=== PATIENT | female | born 1950 | race Caucasian/White ===

== ENCOUNTER → 2016-07-31 | Outpatient (CLI) | payer OTHER ==
[~2016-07-31] MED LIST: ACET-2321 PO; AMLO5TAB2 PO; ASPI-917 PO; BENA20TA3 PO; BIOT25008 PO; CALC1CAP22 PO; CETI1TAB14 PO; CETI5TAB11 PO; CITA-51 PO; CYAN10009 PO; CYCL30DR BOTH EYES; ESTR42.53 VAGINALLY; FLUT16SP12 EA NOSTRIL; FOLI1TAB15 PO; GUAI-997 PO; HYDR200T28 PO; META800T88 PO; METH2.5T6 PO; MULT-933 PO; OMEP20CA81 PO; POLY17PO18 PO; TRAM50TA53 PO; ZOLE5INF IV; [UNRECOGNIZED DRUG - CODE] PO
== END ==
LOC: IMA 14:20
PROVIDERS: ATTEND Family Medicine
DX: M85.852 Other specified disorders of bone density and structure, left thigh (principal)

== ENCOUNTER 2017-02-03 22:55 | Inpatient (IN) ==
[2017-02-03] MEDS ORDERED: SALINE FLUSH 10ml SYRINGE IVF PRN (23:14)
[2017-02-03] MEDS ORDERED: KETOROLAC 15 MG/ML INJECTION IVP ONE (23:14)
--- NOTE | 2017-02-03 23:21 | Emergency Department Report ---
Lower Extremity Injury HPI - General Chief Complaint: Extremity Injury, Lower Stated Complaint: Abn labs/knee pain Time Seen by Provider: 02/03/17 23:06 Source: patient, family Mode of arrival: wheelchair Limitations: no limitations - History of Present Illness HPI Narrative: Pt developed left knee pain yesterday for which she took some leftover Percocet she had from the replacement of the same knee back in March of this year. Pain continued today so she called and was seen in the clinic at 1800 tonight. Labs were drawn and xrays obtained. Pt later received a phone call stating her WBCs were elevated, the physician had talked to ortho and that she was to follow up with ortho at 0830 tomorrow, she was to also double her percocet dose but to come into the ER if her pain became worse. Pt felt her pain was not being controlled by the Percocet and is here for admission Injury: Left: knee (non traumatic pain) Severity scale (1-10): 10 Relieving factors: nothing Exacerbating factors: weight bearing, movement Treatments prior to arrival: other (Percocet) - Related Data Home Medications Medication Instructions Recorded Confirmed Citalopram Hydrobromide 40 mg PO HS #0 10/12/09 02/03/17 [Citalopram HBr] Hydroxychloroquine [Plaquenil] 200 mg PO BID #0 10/12/09 02/03/17 Metaxalone 800 mg PO TIDPRN #0 10/12/09 02/01/17 Cetirizine HCl 5 mg PO HS #0 03/13/11 02/03/17 Amlodipine Besylate 5 mg PO HS #0 tab 04/17/16 02/03/17 Biotin 1 cap PO DAILY #0 04/17/16 02/03/17 Calcium Carbonate/Vitamin D3 1 cap PO DAILY #0 04/17/16 02/03/17 [Calcium 600 + Vit D 400 Softgl] Folic Acid 1 tab PO DAILY #0 tab 04/17/16 02/03/17 Multivitamin [Multi-Day Vitamins] 1 tab PO DAILY #0 tab 04/17/16 02/03/17 cycloSPORINE [Restasis] 1 drop BOTH EYES DAILY #0 drop 04/17/16 02/03/17 Estradiol Vag Cream [Estrace Vag 1 applic VAGINAL HS 10/03/16 02/03/17 Cream] Fluticasone Nasal [place] [Flonase] 2 inh NS HS 10/03/16 02/03/17 Guaifenesin/Dextromethorphan 1 tab PO BID 10/03/16 02/03/17 [Mucinex Dm ER 1,200-60 mg Tab] Omeprazole 20 mg PO DAILY 10/03/16 02/03/17 Quetiapine [SEROquel] 200 mg PO HS 10/03/16 02/03/17 metHOTREXate sodium [Methotrexate] 6 tab PO WEEKLY 10/03/16 02/03/17 Cholecalciferol (Vitamin D3) 1,000 unit PO DAILY 02/01/17 02/03/17 [Vitamin D3] Vitamin E 400 unit PO DAILY 02/01/17 02/03/17 Allergies Allergy/AdvReac Type Severity Reaction Status Date / Time No Known Drug Allergies Allergy Unknown Verified 02/03/17 23:14 Review of Systems All systems: reviewed and negative except as stated Constitutional: Denies: fever, chills Gastrointestinal: Denies: nausea, vomiting Musculoskeletal: Reports: joint swelling, arthralgia Neurological: Reports: headache PFSH Patient Stated Medical History Cerebrovascular Accident No Angina No Hypertension Yes Asthma No Chronic Obstructive Pulmonary No Disease (COPD) Sleep Apnea No Diabetes Mellitus Type 2 No Gastroesophageal Reflux Yes: rarely- well controlled Disease Osteoarthritis Yes Other Musculoskeletal Yes: OSTEOPOROSIS Anesthesia Reactions Yes Depression Yes Post Menopausal Yes Clinic Medical History (Last Reviewed 12/18/16 @ 16:53 by Latonia Guerra) Adult idiopathic generalized osteoporosis (Acute Medical) Anxiety (Acute Medical) Depression (Acute Medical) Discoid lupus (Acute Medical) GERD (gastroesophageal reflux disease) (Acute Medical) Hypertension (Acute Medical) Osteoarthritis (Acute Medical) Headache (Inactive Medical) Hypertension (Inactive Medical) Surgical History: Bilateral breast augmentation, Age 45. TKA, left 2016. Bilateral exchange of saline implants to [place] [employer] breast implants 395 cc tall height, moderate plus profile 10/06/2016 Family History: Family History (Last Reviewed 12/18/16 @ 16:53 by Latonia Guerra) Father Hypertension Coronary artery disease Stroke Paternal Grandmother Diabetes Maternal Grandmother Breast cancer Mother Rheumatoid arthritis Osteoporosis Hypertension Hypercholesterolemia Heart disease Maternal Aunt Breast cancer Maternal Uncle Diabetes - Social History Smoking status: Never smoker Physical Exam - Limitations Limitations: no limitations - General General appearance: alert, in distress - Normal Exams: Head:: Normocephalic without trauma Neck:: Full range of motion, without adenopathy Chest/Respirations:: Clear all aleman, with good airflow Cardiovascular:: Regular rate and rhythm, without murmur or gallop, Pulses 2+ all extremities Abdomen:: Bowel sounds positive, soft, non-tender, non-distended Integumentary:: No rashes Neurological:: Patient is alert, and oriented, cranial nerves, motor/sensory/ cerebellar, exams w/o gross deficits, to observation Psychiatric:: Patient exhibits, appropriate attention, emotion and affect - Expanded Lower Extremity Exam Knee exam: Present: tenderness, swelling (warm to touch ) Course - Consultations Consultation #1: Pablo Curiel Time: 23:15 (no response) Consultation #2: Dr García Time: 23:30 (Admit to hospitalist) Vital Signs Temperature 98.2 F 02/03/17 22:55 Pulse Rate 98 02/03/17 22:55 Respiratory Rate 18 02/03/17 22:55 Blood Pressure 133/60 02/03/17 22:55 Pulse Oximetry 99 02/03/17 22:55 Temperature 98.2 F 02/03/17 22:55 Pulse Rate 98 02/03/17 22:55 Respiratory Rate 18 02/03/17 22:55 Blood Pressure 133/60 02/03/17 22:55 Pulse Oximetry 99 02/03/17 22:55 Extremity Injury, Lower - MDM Narrative Medical decision making narrative: Pt labs and Xrays from this evening reviewed. IV initiated, blood cultures obtained and pt given pain med. Dr García notified of pt arrival. Pt to be admitted. Dr Sanchez notified and will admit as inpatient - Differential Diagnosis Likely: acute internal derangement of knee (osteomyolitis, knee dislocation) - Lab Data Attestation: I reviewed the patient's lab results. - Radiology Data Attestation: I reviewed the patient's radiology results. Disposition Clinical Impression: Knee pain, left Qualifiers: Chronicity: acute Qualified Code(s): M25.562 - Pain in left knee Disposition: 02 To [facility] Acute Care Condition: Stable Prescriptions: No Action Metaxalone 800 mg PO TIDPRN #0 Hydroxychloroquine [Plaquenil] 200 mg PO BID #0 Cetirizine HCl 5 mg PO HS #0 Calcium Carbonate/Vitamin D3 [Calcium 600 + Vit D 400 Softgl] 1 cap PO DAILY #0 Folic Acid 1 tab PO DAILY #0 tab Amlodipine Besylate 5 mg PO HS #0 tab cycloSPORINE [Restasis] 1 drop BOTH EYES DAILY #0 drop Estradiol Vag Cream [Estrace Vag Cream] 1 applic VAGINAL HS Fluticasone Nasal [place] [Flonase] 2 inh NS HS Guaifenesin/Dextromethorphan [Mucinex Dm ER 1,200-60 mg Tab] 1 tab PO BID Quetiapine [SEROquel] 200 mg PO HS metHOTREXate sodium [Methotrexate] 6 tab PO WEEKLY Vitamin E 400 unit PO DAILY Cholecalciferol (Vitamin D3) [Vitamin D3] 1,000 unit PO DAILY Citalopram Hydrobromide [Citalopram HBr] 40 mg PO HS #0 Biotin 1 cap PO DAILY #0 Multivitamin [Multi-Day Vitamins] 1 tab PO DAILY #0 tab Omeprazole 20 mg PO DAILY Referrals: Zaid Moraes II, MD [Primary Care Provider] - Time of Disposition: 23:51 - Seen By: midlevel
[2017-02-04] MEDS ORDERED: ONDANSETRON 4 MG/2 ML INJECTION IVP PRN (00:26)
[2017-02-04] MEDS ORDERED: DOCUSATE SODIUM 100 MG CAPSULE PO PRN (00:26)
[2017-02-04 00:43] VITALS: BMI 28.1
[2017-02-04] MEDS: NS 1,000 ML IV SCH ×3 (00:52→15:03)
--- NOTE | 2017-02-04 01:08 | History & Physical Report ---
History of Present Illness Date: 02/04/17 Chief complaint: left knee pain HPI: This is 66 y/o female with a history of RA who is on MTX. The patient had a left total knee done 04/15. The patient with increasing left knee pain over the past 24 hours. no injury. The patient contacted Dr. García's office and an appointment was scheduled for this am. She was told to go to ED if pain worsened. Pain worsened and she presented to the ED. Plain films are unremarkable. Labs demonstrated no sig increased WBC but CRP was elevated. Because of concern for septic joint Dr. García was contacted by ED and he r/c admission and npo and no ANB. He would see the patient first thing in the am. Review of Systems Review of systems: no headache, no change in vision, no neck or jaw pain, no chest pain, no shortness of breath, no cough, no congestion, no abdomen pain no nausea or vomiting, no fever chills or sweats, no injury to knee. dogs occasionally bump into knee but not recently. Pain much worse tonight with cramps. 10 point ROS otherwise negative except for outlined above. [facility] Patient Stated Medical History Cerebrovascular Accident No Hypertension Yes Asthma No Chronic Obstructive Pulmonary No Disease (COPD) Sleep Apnea No Gastroesophageal Reflux Yes: rarely- well controlled Disease Osteoarthritis Yes Other Musculoskeletal Yes: OSTEOPOROSIS Anesthesia Reactions Yes: Head ache and nausea Depression Yes Post Menopausal Yes Clinic Medical History (Last Reviewed 12/18/16 @ 16:53 by Latonia Guerra) Knee pain, left (Acute Medical) Adult idiopathic generalized osteoporosis (Acute Medical) Anxiety (Acute Medical) Depression (Acute Medical) Discoid lupus (Acute Medical) GERD (gastroesophageal reflux disease) (Acute Medical) Hypertension (Acute Medical) Osteoarthritis (Acute Medical) Headache (Inactive Medical) Hypertension (Inactive Medical) Surgical History: Bilateral breast augmentation, Age 45. TKA, left 2016. Bilateral exchange of saline implants to [place] [employer] breast implants 395 cc tall height, moderate plus profile 10/06/2016 Family History: Family History (Last Reviewed 12/18/16 @ 16:53 by Latonia Guerra) Father Hypertension Coronary artery disease Stroke Paternal Grandmother Diabetes Maternal Grandmother Breast cancer Mother Rheumatoid arthritis Osteoporosis Hypertension Hypercholesterolemia Heart disease Maternal Aunt Breast cancer Maternal Uncle Diabetes - Social History Smoking status: Never smoker Substance use type: does not use Alcohol intake frequency: does not drink Housing: house Household members: spouse Current occupational status: previously employed Current residence: Apartment/Private Home Medications Home Medications Medication Instructions Recorded Confirmed Type Citalopram Hydrobromide 40 mg PO HS #0 10/12/09 02/03/17 History [Citalopram HBr] Hydroxychloroquine [Plaquenil] 200 mg PO BID #0 10/12/09 02/03/17 History Metaxalone 800 mg PO TIDPRN #0 10/12/09 02/01/17 History Cetirizine HCl 5 mg PO HS #0 03/13/11 02/03/17 History Amlodipine Besylate 5 mg PO HS #0 tab 04/17/16 02/03/17 History Biotin 1 cap PO DAILY #0 04/17/16 02/03/17 History Calcium Carbonate/Vitamin D3 1 cap PO DAILY #0 04/17/16 02/03/17 History [Calcium 600 + Vit D 400 Softgl] Folic Acid 1 tab PO DAILY #0 tab 04/17/16 02/03/17 History Multivitamin [Multi-Day Vitamins] 1 tab PO DAILY #0 tab 04/17/16 02/03/17 History cycloSPORINE [Restasis] 1 drop BOTH EYES DAILY #0 drop 04/17/16 02/03/17 History Estradiol Vag Cream [Estrace Vag 1 applic VAGINAL HS 10/03/16 02/03/17 History Cream] Fluticasone Nasal [place] [Flonase] 2 inh NS HS 10/03/16 02/03/17 History Guaifenesin/Dextromethorphan 1 tab PO BID 10/03/16 02/03/17 History [Mucinex Dm ER 1,200-60 mg Tab] Omeprazole 20 mg PO DAILY 10/03/16 02/03/17 History Quetiapine [SEROquel] 200 mg PO HS 10/03/16 02/03/17 History metHOTREXate sodium [Methotrexate] 6 tab PO WEEKLY 10/03/16 02/03/17 History Cholecalciferol (Vitamin D3) 1,000 unit PO DAILY 02/01/17 02/03/17 History [Vitamin D3] Vitamin E 400 unit PO DAILY 02/01/17 02/03/17 History Allergies Allergy/AdvReac Type Severity Reaction Status Date / Time No Known Drug Allergies Allergy Unknown Verified 02/03/17 23:14 Exam Vital Signs: Temperature 98.2 F 02/03/17 22:55 Pulse Rate 98 02/03/17 22:55 Respiratory Rate 18 02/03/17 22:55 Blood Pressure 133/60 02/03/17 22:55 Pulse Oximetry 99 02/03/17 22:55 Telemetry Rhythm: Sinus Rhythm Height/Weight/BMI: Height 1.65 m Weight 76.7 kg Body Mass Index 28.1 - Constitutional Present: moderate distress, obese, cooperative - Routine HEENT Exam Head: Present: normocephalic, atraumatic Eye: Present: EOMI, conjunctivae pink. Absent: scleral injection ENT: Present: mucous membranes moist - Routine Neck Exam Present: supple, full ROM - Routine Respiratory Exam Present: CTA bilaterally - Routine Cardiovascular Exam Present: RRR, no murmur - Routine Abdominal Exam Present: soft, normoactive bowel sounds, non distended, non tender - Routine Extremities Exam Present: no edema, non tender Comments: patient with surgical scar across left knee. there is more swelling to left knee vs right, slight erythema surrounding knee. ROM severely limited 2/2 pain. - Routine Skin Exam Present: intact - Routine Neurological Exam Present: alert, oriented X3. Absent: motor deficit - Routine Psychiatric Exam Present: normal affect, normal thought process Results - Labs Labs: Labs from the outside WBC 15K. CRP 231 Not available for review otherwise. ED note did not contain. (will make sure entered) am labs ordered. - Imaging and Cardiology left knee Additional comments: no acute osseous injury Assessment and Plan (1) Knee pain, left Current visit: Yes Status: Acute (2) Rheumatoid arthritis Current visit: Yes Status: Acute (3) Hypertension Current visit: Yes Status: Acute (4) GERD (gastroesophageal reflux disease) Current visit: Yes Status: Acute Assessment and Plan: 1. left knee pain acute POA: cause not clear at this time. DDX: flair of RA, infectious, traumatic. CRP elevated but would expect with RA chronic . Patient is immune compromised on MTX and as such risk of infection great. Raquel HALLMAN contacted and r/c no ANB to start. NPO and he would see in the am. Obviously with previous total knee would be concerned about infected hardware. Will repeat labs in the am and defer to ortho for next step of evaluation. Obviously also do not want to randomly stick needle in this joint with hardware present. 2. RA chronic POA: at this time hold MTX. Plaquenil. await further considerations from ortho. If no infection can continue meds and further address. 3. HTN chronic POA: hold norvasc overnight. adjust meds as indicated once NPO status is resolved 4. GERD chronic POA: PPI 5. DVT ppx: SCD only full inpatient admission DVT Prophylaxis: SCD's GI Prophylaxis: Protonix Resuscitation Status: Full Code - Time spent with patient Time with patient PN: 30 minutes Hospital Course Summary Disclaimer: The visit summary below is not to be considered part of the above Progress Note.
[2017-02-04] MEDS: MORPHINE SULFATE 4mg INJECTION IVP PRN ×4 (01:26→09:33)
--- NOTE | 2017-02-04 08:41 | Orthopedic Consult Note ---
Orthopedic Consultation HPI - Consultation Info Consult Date: 02/04/17 Attending Physician: Kaylee Wilkins MD Consult Reason: joint pain - History of Present Illness Mrs. Sandra is a kind 56-year-old female who is approximately 10 months status post left total knee arthroplasty. She is done well with her knee replacement until now. She was seen in the ER this last Thursday for what she describes a spasm this in her head. With pain medication and this resolved within 2 started having some spasms in the left knee and calf starting Thursday. She reports no previous illness and no previous injury. She is been in her normal state of health up until Thursday. No prior knee pain before Thursday. She is on methotrexate for rheumatoid arthritis. She presented emergency room last night with increasing knee pain. She was admitted to the hospitalist. CRP and white blood cell count elevated. This morning she complains of only left knee cramping to me. Review of Systems - Constitutional Constitutional: Absent: chills, fever(s), night sweats - Cardiovascular Cardiovascular: Absent: chest pain, palpitations - Respiratory Respiratory: Absent: cough, dyspnea - Gastrointestinal Gastrointestinal: Absent: abdominal pain, nausea, vomiting - Genitourinary Genitourinary Female: Absent: dysuria - Musculoskeletal Musculoskeletal: Present: as per HPI - Integumentary/Breasts Integumentary: Absent: lesions, rash - Neurological Neurological: Absent: numbness, tingling PFSH Patient Stated Medical History Cerebrovascular Accident No Hypertension Yes Asthma No Chronic Obstructive Pulmonary No Disease (COPD) Sleep Apnea No Gastroesophageal Reflux Yes: rarely- well controlled Disease Osteoarthritis Yes Other Musculoskeletal Yes: OSTEOPOROSIS Anesthesia Reactions Yes: Head ache and nausea Depression Yes Post Menopausal Yes Clinic Medical History (Last Reviewed 12/18/16 @ 16:53 by Latonia Guerra) Knee pain, left (Acute Medical) Rheumatoid arthritis (Acute Medical) Hypertension (Acute Medical) GERD (gastroesophageal reflux disease) (Acute Medical) Adult idiopathic generalized osteoporosis (Acute Medical) Anxiety (Acute Medical) Depression (Acute Medical) Discoid lupus (Acute Medical) GERD (gastroesophageal reflux disease) (Acute Medical) Hypertension (Acute Medical) Osteoarthritis (Acute Medical) Headache (Inactive Medical) Hypertension (Inactive Medical) Surgical History: Bilateral breast augmentation, Age 45. TKA, left 2016. Bilateral exchange of saline implants to [place] [employer] breast implants 395 cc tall height, moderate plus profile 10/06/2016 Family History: Family History (Last Reviewed 12/18/16 @ 16:53 by Latonia Guerra) Father Hypertension Coronary artery disease Stroke Paternal Grandmother Diabetes Maternal Grandmother Breast cancer Mother Rheumatoid arthritis Osteoporosis Hypertension Hypercholesterolemia Heart disease Maternal Aunt Breast cancer Maternal Uncle Diabetes - Social History Smoking status: Never smoker Current residence: Apartment/Private Home Medications Home Medications Medication Instructions Recorded Confirmed Type Citalopram Hydrobromide 40 mg PO HS #0 10/12/09 02/03/17 History [Citalopram HBr] Hydroxychloroquine [Plaquenil] 200 mg PO BID #0 10/12/09 02/03/17 History Metaxalone 800 mg PO TIDPRN #0 10/12/09 02/01/17 History Cetirizine HCl 5 mg PO HS #0 03/13/11 02/03/17 History Amlodipine Besylate 5 mg PO HS #0 tab 04/17/16 02/03/17 History Biotin 1 cap PO DAILY #0 04/17/16 02/03/17 History Calcium Carbonate/Vitamin D3 1 cap PO DAILY #0 04/17/16 02/03/17 History [Calcium 600 + Vit D 400 Softgl] Folic Acid 1 tab PO DAILY #0 tab 04/17/16 02/03/17 History Multivitamin [Multi-Day Vitamins] 1 tab PO DAILY #0 tab 04/17/16 02/03/17 History cycloSPORINE [Restasis] 1 drop BOTH EYES DAILY #0 drop 04/17/16 02/03/17 History Estradiol Vag Cream [Estrace Vag 1 applic VAGINAL HS 10/03/16 02/03/17 History Cream] Fluticasone Nasal [place] [Flonase] 2 inh NS HS 10/03/16 02/03/17 History Guaifenesin/Dextromethorphan 1 tab PO BID 10/03/16 02/03/17 History [Mucinex Dm ER 1,200-60 mg Tab] Omeprazole 20 mg PO DAILY 10/03/16 02/03/17 History Quetiapine [SEROquel] 200 mg PO HS 10/03/16 02/03/17 History metHOTREXate sodium [Methotrexate] 6 tab PO WEEKLY 10/03/16 02/03/17 History Cholecalciferol (Vitamin D3) 1,000 unit PO DAILY 02/01/17 02/03/17 History [Vitamin D3] Vitamin E 400 unit PO DAILY 02/01/17 02/03/17 History Allergies Allergy/AdvReac Type Severity Reaction Status Date / Time No Known Drug Allergies Allergy Unknown Verified 02/03/17 23:14 Orthopedic Exam Vital signs: Temperature 98.2 F 02/04/17 07:56 Pulse Rate 84 02/04/17 07:56 Respiratory Rate 16 02/04/17 07:56 Blood Pressure 123/72 02/04/17 07:56 Pulse Oximetry 97 02/04/17 07:56 - Constitutional General Appearance: Present: mild distress, well developed, well nourished - Respiratory Exam Present: non-labored - Cardiovascular Exam Present: pedal pulses intact - Extremities Exam Comments: 2+ effusion to left knee. Incision is well-healed. No erythema. Slightly warm to touch compared to right knee. Calf is soft and nontender. - Integumentary Exam Present: pink, warm, dry - Neurological Exam Present: intact to light touch, no deficits - Psychiatric Exam Present: alert, normal affect - Labs Result Diagrams: 02/04/17 04:34 02/04/17 04:34 Abnormal lab results 02/04/17 02/04/17 Range/Units 04:34 04:34 WBC 12.7 H (4.5-11.0) T/MM3 RBC 3.24 L (4.00-5.20) M/MM3 Hgb 9.8 L D (12-16) GM/DL Hct 28.7 L D (36-46) % Neut % (Auto) 81.6 H (33-66) % Lymph % (Auto) 5.8 L (23-45) % [place] % (Auto) 12.2 H (0-9.0) % Neut # (Auto) 10.4 H (1.8-7.7) T/MM3 Lymph # (Auto) 0.7 L (1-4.8) T/MM3 [place] # (Auto) 1.6 H (0-0.8) T/MM3 Sodium 128 L D (134-144) MEQ/L Potassium 3.3 L (3.6-5) MEQ/L BUN 19.0 H (7-17) MG/DL Glucose 112 H (65-110) MG/DL Calculated Osmolality 250 L (261-280) MOSM/KG Calcium 7.9 L D (8.4-10.2) MG/DL H & H 02/04/17 Range/Units 04:34 Hgb 9.8 L D (12-16) GM/DL Hct 28.7 L D (36-46) % - Diagnostic results Knee x-ray: image reviewed Impression and Recommendation (1) Prosthetic joint infection Current visit: Yes Qualifiers: Encounter type: initial encounter Qualified Code(s): T84.50XA - Infection and inflammatory reaction due to unspecified internal joint prosthesis, initial encounter Status: Suspected Hospital Course Summary Disclaimer: The visit summary below is not to be considered part of the above Progress Note.
[2017-02-04] MEDS ORDERED: TOBRAMYCIN 80 MG/2 ML IAR ONE (09:45)
[2017-02-04] MEDS ORDERED: NS 1,000 ML IV SCH (11:15)
[2017-02-04] MEDS ORDERED: VANCOMYCIN 1,000 MG INJECTION ONE ×2 (11:28→13:14)
[2017-02-04] MEDS ORDERED: TOTAL JOINT INJECTION MIXTURE 65.25 ml OPSITE ONE (11:30)
--- NOTE | 2017-02-04 11:35 | Anesthesia Preoperative Report ---
Anesthesia Preoperative Record - Date and Time Date: 02/04/17 Preoperative Diagnosis: left knee pain Proposed Procedure: I & D Left Knee NPO Since Date: 02/03/17 NPO Since Time: 20:00 Allergies/Adverse Reactions: Allergies Allergy/AdvReac Type Severity Reaction Status Date / Time No Known Drug Allergies Allergy Unknown Verified 02/03/17 23:14 - Vital Signs Vital Signs: Temperature 99.3 F 02/04/17 11:22 Pulse Rate 84 02/04/17 11:22 Respiratory Rate 20 02/04/17 11:22 Blood Pressure 126/64 02/04/17 11:22 Pulse Oximetry 94 02/04/17 11:22 Height and Weight: Height 5 ft 5 in Weight 81.1 kg Body Mass Index 28.1 - Medications Inpatient Medications: Current Medications Docusate Sodium (Colace) 100 mg PO BID PRN Sodium Chloride (Normal Saline) 1,000 mls @ 100 mls/hr IV .Q10H GORDON Last Admin: 02/04/17 10:50 Dose: 100 mls/hr Lidocaine HCl 10 mg/ Potassium Chloride 10 meq/ Sodium Chloride 100 mls @ 100 mls/hr IV .Q1H GORDON Stop: 02/04/17 15:28 Sodium Chloride (Normal Saline) 1,000 mls @ 50 mls/hr IV .Q20H GORDON Last Admin: 02/04/17 11:29 Dose: 50 mls/hr Epinephrine HCl 0.25 mg/Bupivacaine HCl 30 ml/Morphine Sulfate 15 mg/Ketorolac Tromethamine 60 mg/Sodium Chloride 65.25 mls @ 1 mls/hr OPSITE INTRAOP ONE PRN Reason: Protocol Stop: 02/07/17 04:44 Morphine Sulfate (Morphine Sulfate Inj) 2 - 4 mg IVP Q2H PRN PRN Reason: Pain Last Admin: 02/04/17 09:33 Dose: 4 mg Ondansetron HCl (Zofran) 4 mg IVP Q6H PRN PRN Reason: Nausea &/or vomiting Sodium Chloride (Iv Flush) 10 - 80 ml IVF PRN PRN PRN Reason: Flushing Last Admin: 02/03/17 23:24 Dose: 10 ml Home Medications: Home Medications Medication Instructions Recorded Confirmed Type Citalopram Hydrobromide 40 mg PO HS #0 10/12/09 02/03/17 History [Citalopram HBr] Hydroxychloroquine [Plaquenil] 200 mg PO BID #0 10/12/09 02/03/17 History Metaxalone 800 mg PO TIDPRN #0 10/12/09 02/01/17 History Cetirizine HCl 5 mg PO HS #0 03/13/11 02/03/17 History Amlodipine Besylate 5 mg PO HS #0 tab 04/17/16 02/03/17 History Biotin 1 cap PO DAILY #0 04/17/16 02/03/17 History Calcium Carbonate/Vitamin D3 1 cap PO DAILY #0 04/17/16 02/03/17 History [Calcium 600 + Vit D 400 Softgl] Folic Acid 1 tab PO DAILY #0 tab 04/17/16 02/03/17 History Multivitamin [Multi-Day Vitamins] 1 tab PO DAILY #0 tab 04/17/16 02/03/17 History cycloSPORINE [Restasis] 1 drop BOTH EYES DAILY #0 drop 04/17/16 02/03/17 History Estradiol Vag Cream [Estrace Vag 1 applic VAGINAL HS 10/03/16 02/03/17 History Cream] Fluticasone Nasal [place] [Flonase] 2 inh NS HS 10/03/16 02/03/17 History Guaifenesin/Dextromethorphan 1 tab PO BID 10/03/16 02/03/17 History [Mucinex Dm ER 1,200-60 mg Tab] Omeprazole 20 mg PO DAILY 10/03/16 02/03/17 History Quetiapine [SEROquel] 200 mg PO HS 10/03/16 02/03/17 History metHOTREXate sodium [Methotrexate] 6 tab PO WEEKLY 10/03/16 02/03/17 History Cholecalciferol (Vitamin D3) 1,000 unit PO DAILY 02/01/17 02/03/17 History [Vitamin D3] Vitamin E 400 unit PO DAILY 02/01/17 02/03/17 History Is Patient on Beta Joellen?: No - Medical History Respiratory: DENIES: Asthma, Bronchitis, Chronic Obstructive Pulmonary Disease (COPD), Dyspnea, Orthopnea, Pulmonary Embolism, Pneumonia, Upper Respiratory Infection, Pulmonary Edema, Sleep Apnea, Tuberculosis, Other Cardiovascular: Reports: Hypertension DENIES: Abnormal EKG, Angina, Arrhythmia, Congestive Heart Failure, Coronary Artery Disease, Heart Murmur, Hypotension, High Cholesterol, Myocardial Infarction, Rheumatic Fever, Valvular Heart Disease, Other Gastrointestional: DENIES: Obstructive Bowel, Hepatitis, Cirrhosis, Nausea or Vomiting Present, Gastroesophageal Reflux Disease, Gastrointestinal Bleeding, Hiatal Hernia, Ulcer , Morbid Obesity, Other Neuro/Musculoskeletal: Denies: HX.MS.OSAR, Back Problems, Cerebrovascular Accident, Depression, Headaches, Loss of Consciousness, Muscle Weakness, Neuromuscular Disorder, Paralysis, Paresthesia, Syncope, Seizures, Other Renal/Endocrine: 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) DENIES: Diabetes Mellitus Type 1, Diabetes Mellitus Type 2, Renal Failure, Dialysis, Thyroid Disease, Weight Loss, Weight Gain Other History: DENIES: Anesthesia Reactions, Now, Blood Transfusions, Chemotherapy , Cancer, Hemophilia, Malignant Hyperthermia, Sickle Cell Disease, Other - Surgical History Respiratory Surgery/Treatments: Reports: Other (Uses mouth guard) GI Surgery/Treatments: Reports: Colonoscopy, EGD Musculoskeletal Surgery/Tx: Reports: Total Knee Replacement (LT TKR March 2016 ) Reproductive Surgery/Treatment: Reports: Breast Augmentation/Reduction (BREAST IMPLANTS), Dilation and Curettage Anesthesia Reactions: Nausea and Vomiting Hx Family Anesthesia Reaction: No History of Motion Sickness: No - Social History Smoking Status: Never smoker Hx Chewing Tobacco Use: No Second Hand Exposure: No Substance Use Type: does not use Alcohol Intake Frequency: does not drink - Pertinent Findings Laboratory: CBC and BMP 02/04/17 04:34 02/04/17 10:25 BMP 02/04/17 02/04/17 04:34 10:25 Sodium 128 L D 133 L Potassium 3.3 L 3.3 L Chloride 98 100 Carbon Dioxide 24 24 BUN 19.0 H 17.0 Creatinine 1.2 D 1.1 Glucose 112 H 90 Calcium 7.9 L D 7.9 L EKG: Sinus Rhythm - Physical Exam Respiratory Exam: Present: lungs clear, bilateral breath sounds equal Cardiovascular Exam: Present: regular rate and rhythm, no murmur - Airway Assessment Mallampati Score: I TMD: 3 Fingerbreadths Neck Extension: good Overall Assessment: no airway concerns - ASA ASA Score: 2 - Plan Anesthesia: Neuroaxial Regional/Trunk Block: Spinal Peripheral Nerve Block: Saphenous-Left - Discussion Discussion: Discussed risks/options/alternatives of anesthesia and questions answered. Patient consents. Nursing pain assessment noted. Attestation Statement: Prior to the delivery of any anesthetic medication, I examined the patient, developed the plan, obtained the patient's consent and discussed the risk and benefits of the procedure with the patient/guardian. - Additional Information Seen by Anesthesia: Yes
[2017-02-04] MEDS: LIDOCAINE 1% INJ 10 MG, POTASSIUM CHLORIDE INJ 10 MEQ in NS 100 ML IV SCH ×4 (11:42→15:03)
[2017-02-04] MEDS ORDERED: FentaNYL 100 MCG/2 ML INJECTION ONE (12:05)
[2017-02-04] MEDS ORDERED: MIDAZOLAM 2mg/2ml INJECTION ONE ×2 (12:05→13:13)
[2017-02-04] MEDS ORDERED: VANCOMYCIN 1,000 MG INJECTION IAR ONE ×2 (13:21)
[2017-02-04] MEDS ORDERED: ROPIVACAINE 0.5% (5mg/ml) 30ml INJ ONE (13:30)
--- NOTE | 2017-02-04 13:59 | Anesthesia Procedure Note ---
Peripheral Nerve Blockade - Procedure Physician: Molly Mccarty MD Date: 02/04/17 Surgical Procedure: I and D Left knee with spacer exchange Discussion: Discussed risks/options/alternatives of anesthesia and questions answered. Patient consents. Nursing pain assessment noted. Block Start: 13:53 Block Stop: 13:55 Blocked Employed: Adductor Canal Indication: Post-Operative Pain Approach: Left Side Confirmed Position: Supine Patient: Consent, Risks/Benefits Discussed, Informed, Post Block Act. Discussed IV Sedation: No (spinal intact) Initial Vital Signs: Temperature 98.2 F 02/03/17 22:55 Temperature Source Oral 02/03/17 22:55 Sepsis Score/Level No Definite Risk 02/03/17 22:55 Sepsis Action Taken by Nursing No Action 02/03/17 22:55 Pulse Rate 98 02/03/17 22:55 Respiratory Rate 18 02/03/17 22:55 Blood Pressure 133/60 02/03/17 22:55 Blood Pressure Mean 84 02/03/17 22:55 Pulse Oximetry 99 02/03/17 22:55 Oxygen Delivery Method 02/03/17 22:55 Post Vital Signs: Temperature 99.3 F 02/04/17 11:22 Pulse Rate 84 02/04/17 11:22 Respiratory Rate 20 02/04/17 11:22 Blood Pressure 126/64 02/04/17 11:22 Pulse Oximetry 94 02/04/17 11:22 Initial Pain Pain Score: 0 Post Block Pain Score: 0 Prep: Chlorhexadine/ETOH - Nerve Simulator Muscle Response: No Paresthesia/Pain: None - Injectate Ropivacaine (%): 0.5 Ropivacaine (mL): 10 Was Epi 1:200,000 Used?: No Injection: Injection made incrementally with constant monitoring and aspiration every ml
[2017-02-04] MEDS ORDERED: SENNA + DOCUSATE TABLET PO PRN (14:30)
[2017-02-04] MEDS ORDERED: NOZIN NASAL SWAB NAS ONE (14:30)
[2017-02-04] MEDS ORDERED: VANCOMYCIN - PHARMACY CONSULT MC ONE (14:30)
--- NOTE | 2017-02-04 14:54 | Pharmacy Consult-Antibiotics ---
Pharmacy Consult-Vancomycin - Laboratory Information WBC 12.7 T/MM3 (4.5-11.0) H 02/04/17 04:34 BUN 17.0 MG/DL (7-17) 02/04/17 10:25 Creatinine 1.1 MG/DL (0.7-1.2) 02/04/17 10:25 - Consult Information Will begin vancomycin 1 gram IV q12h. Will continue to monitor and adjust accordingly. Thank you.
--- NOTE | 2017-02-04 15:00 | Anesthesia Postoperative Note ---
- Date and Time Date: 02/04/17 Time: 14:59 - Status Patient Participated in Evaluation: Patient Participated in Person Vital Signs: Temperature 99.2 F 02/04/17 13:41 Pulse Rate 89 02/04/17 13:41 Respiratory Rate 14 02/04/17 13:41 Blood Pressure 112/58 02/04/17 13:41 Pulse Oximetry 90 02/04/17 13:41 Respiratory Function: Airway Patent, Regular Respirations Cardiovascular Function: Regular Pulse EKG: Sinus Rhythm Mental Status: Alert and Oriented Pain Intensity: 0 Hydration: IV Infusing Complications During Recover: None Apparent - Follow-Up Instructions Instructions: Per Surgeon
[2017-02-04] MEDS: NOZIN NASAL SWAB NAS SCH ×2 (16:08→21:46)
[2017-02-04] MEDS: HYDROCODONE/APAP 7.5 MG/325 MG TABLET PO PRN (17:27)
[2017-02-04] MEDS ORDERED: METAXALONE 800 MG TABLET PO PRN (17:45)
[2017-02-04] MEDS ORDERED: METOCLOPRAMIDE 10mg/2ml INJECTION IVP PRN (17:47)
[2017-02-04] MEDS: FLUTICASONE NASAL SPRAY 50mcg EA NOSTRIL SCH (21:04)
[2017-02-04] MEDS: HYDROXYCHLOROQUINE 200 MG TABLET PO SCH (21:05)
[2017-02-04] MEDS: CITALOPRAM 40 MG TABLET PO SCH (21:05)
[2017-02-04] MEDS: QUETIAPINE 200 MG TABLET PO SCH (21:05)
[2017-02-04] MEDS: ASPIRIN 81 MG CHEWABLE TABLET PO SCH (21:05)
[2017-02-04] MEDS: AMLODIPINE 5 MG TABLET PO SCH (21:05)
[2017-02-05] MEDS: NS 1,000 ML IV SCH (04:40)
[2017-02-05] MEDS: HYDROCODONE/APAP 7.5 MG/325 MG TABLET PO PRN ×3 (04:41→20:09)
[2017-02-05] MEDS: NOZIN NASAL SWAB NAS SCH ×3 (06:07→22:30)
[2017-02-05] MEDS: OMEPRAZOLE 20 MG CAPSULE PO SCH (06:07)
--- NOTE | 2017-02-05 08:16 | Orthopedic Progress Note ---
Date: Subjective/Severity of Illness: Nona is a little sleepy this AM. She does wake up as I enter the room. She states her pain is doing okay. She denies chest pain or shortness of breath. Cultures are still pending. The preliminary synovial tissue culture does show a few Grm. pos cocci. Dr. Hernandez has been consulted. She is presently on Vancomycin. Orthopedic Objective PO Vital signs: Temperature 98.7 F 02/05/17 04:37 Pulse Rate 91 02/05/17 04:00 Respiratory Rate 24 02/05/17 04:00 Blood Pressure 128/70 02/05/17 04:00 Pulse Oximetry 91 02/05/17 04:00 Height and Weight: Height 5 ft 5 in Weight 178 lb 12.718 oz Body Mass Index 28.1 - Constitutional General Appearance: Present: alert, orientated x3, well developed, well nourished - Respiratory Exam Present: non-labored - Cardiovascular Exam Present: pedal pulses intact Capillary Refill: < 2-3 Seconds - Extremities Exam Extremities: Present: pulses intact. Absent: calf tenderness - Knee Exam Comments: non erythemic, dressing dry - Surgical Site Incision: clean, dry, intact, Mepilex dressing intact - Integumentary Exam Present: pink, warm, dry - Neurological Exam Present: intact to light touch, no deficits - Psychiatric Exam Present: alert, normal affect - Labs Result Diagrams: 02/05/17 04:11 02/05/17 04:11 Abnormal lab results 02/04/17 02/04/17 02/05/17 Range/Units 07:48 10:25 04:11 RBC 3.06 L (4.00-5.20) M/MM3 Hgb 9.2 L (12-16) GM/DL Hct 27.6 L (36-46) % Neut % (Auto) 83.5 H (33-66) % Lymph % (Auto) 5.1 L (23-45) % [place] % (Auto) 10.6 H (0-9.0) % Neut # (Auto) 8.4 H (1.8-7.7) T/MM3 Lymph # (Auto) 0.5 L (1-4.8) T/MM3 [place] # (Auto) 1.1 H (0-0.8) T/MM3 Neutrophils % (Manual) 87.0 H (33-66) % Lymphocytes % (Manual) 5.0 L (23-45) % Neutrophils # (Manual) 8.8 H (1.8-7.7) T/MM3 Lymphocytes # (Manual) 0.5 L (1-4.8) T/MM3 Sodium 133 L (134-144) MEQ/L Potassium 3.3 L (3.6-5) MEQ/L Carbon Dioxide (22-30) MEQ/L Calculated Osmolality 258 L (261-280) MOSM/KG Calcium 7.9 L (8.4-10.2) MG/DL Total Protein (6.3-8.2) G/DL Albumin (3.5-5.0) G/DL Albumin/Globulin Ratio (1.1-2.2) RATIO Fluid Crystal Appear Turbid A Fluid Crystal Color Pale yellow A 02/05/17 Range/Units 04:11 RBC (4.00-5.20) M/MM3 Hgb (12-16) GM/DL Hct (36-46) % Neut % (Auto) (33-66) % Lymph % (Auto) (23-45) % [place] % (Auto) (0-9.0) % Neut # (Auto) (1.8-7.7) T/MM3 Lymph # (Auto) (1-4.8) T/MM3 [place] # (Auto) (0-0.8) T/MM3 Neutrophils % (Manual) (33-66) % Lymphocytes % (Manual) (23-45) % Neutrophils # (Manual) (1.8-7.7) T/MM3 Lymphocytes # (Manual) (1-4.8) T/MM3 Sodium 133 L (134-144) MEQ/L Potassium (3.6-5) MEQ/L Carbon Dioxide 21 L (22-30) MEQ/L Calculated Osmolality 257 L (261-280) MOSM/KG Calcium (8.4-10.2) MG/DL Total Protein 5.7 L (6.3-8.2) G/DL Albumin 2.8 L (3.5-5.0) G/DL Albumin/Globulin Ratio 1.0 L (1.1-2.2) RATIO Fluid Crystal Appear Fluid Crystal Color H & H 02/04/17 02/05/17 Range/Units 04:34 04:11 Hgb 9.8 L D 9.2 L (12-16) GM/DL Hct 28.7 L D 27.6 L (36-46) % Orthopedic Assessment and Plan (1) Prosthetic joint infection Status: Suspected Qualifiers: Encounter type: initial encounter Qualified Code(s): T84.50XA - Infection and inflammatory reaction due to unspecified internal joint prosthesis, initial encounter Assessment and Plan: Follow cultures and change antibiotics accordingly with Dr. Hernandez guidance PT/OT for mobility pain and bowel management DVT prevention - Anticoagulation Therapy Anticoagulation: ASA 81 mg PO BID x6 weeks Hospital Course Summary Disclaimer: The visit summary below is not to be considered part of the above Progress Note.
[2017-02-05] MEDS: CycloSPORINE 0.05% EYE DROPS 4ml EACH EYE SCH (08:45)
[2017-02-05] MEDS: HYDROXYCHLOROQUINE 200 MG TABLET PO SCH ×2 (08:45→17:37)
[2017-02-05] MEDS: ASPIRIN 81 MG CHEWABLE TABLET PO SCH ×2 (08:46→20:09)
[2017-02-05] MEDS: FOLIC ACID 1 MG TABLET PO SCH (08:46)
--- NOTE | 2017-02-05 09:14 | Operative Note ---
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 PROCEDURE Open complete synovectomy of left knee with irrigation and spacer exchange with placement of antibiotic beads. SURGEON Henry García MD FINISHING MANAGER Estuardo Brewer PA-C COMPLICATIONS None. ANESTHESIA Spinal. BRIEF HISTORY Mrs. Armstrong is 10 months out from her left total knee arthroplasty. It has been functioning well until Thursday. She started having increasing swelling and pain. There was no previous infection that she knows of and no resent injury. She has rheumatoid arthritis and is on methotrexate. Aspiration of the left knee this morning showed a cell count of 111,000 with no organism seen. She has a high CRP above 200 and a mildly elevated white blood cell count. Given these findings, I did recommend the above intervention. She agreed with this plan. DESCRIPTION OF PROCEDURE Mrs. Armstrong and her left knee were identified and marked in the preoperative holding area. She was brought back to the operating suite and placed supine on the operating table. Spinal anesthetic was administered. She was then placed in supine position and her left lower extremity was prepped and draped in my normal sterile fashion. Time-out was performed. The patient as not given antibiotics until cultures were taken. The leg was exsanguinated and the tourniquet inflated to 250 mmHg. I made an incision along her previous anterior midline incision. Sharp dissection was carried down to the capsule and a capsulotomy was performed. The tissue thus far looked very normal with normal-appearing scar tissue which was healthy in appearance. Once the capsule was entered there was a large amount of dishwater- appearing fluid. This was evacuated. I then proceeded to take three synovial biopsies and these were sent to Pathology for culture. The tissue at this point did appear healthy. No signs of chronic infection or necrosis. No signs of slime. I then proceeded to perform a complete synovectomy sharply and also used a curette on the exposed bone and used the soft end of a scrub brush on the hardware . The hardware itself looked in good condition without signs of loosening. The plastic also looked good without signs of wear. The spacer was removed and the back of the knee was again cleaned with a curette and a synovectomy. I then irrigated with a total of 9 liters of normal saline using pulse lavage. I also used half a liter of Aricept solution and I used Betadine solution for three minutes. A new spacer was placed. Local anesthetic was injected throughout the soft tissue. Once gram of vancomycin powder was placed into the knee joint followed by STIMULAN (calcium sulfate) pellets which were mixed with vancomycin and tobramycin. These were placed in both gutters. The capsulotomy was then repaired with #1 Vicryl. 2-0 Vicryl was used in the subcutaneous tissue and a running 4-0 Monocryl was used in the skin. A sterile dressing was placed and she was taken back to the Recovery Room under the care of Anesthesia. She tolerated the procedure well. There were no complications. MARILYN
[2017-02-05] MEDS ORDERED: SALIVA SUBSTITUTE MOUTH SPRAY 1.5oz PO PRN ×2 (13:52→14:00)
--- NOTE | 2017-02-05 15:31 | Progress Note ---
<Puja Gonsalves V - Last Filed: 02/05/17 15:36> - Date 02/05/17 Subjective: Nona is seen today in follow up with her at the bedside. She reports that she has an intermittent left lower lateral aspect of leg cramps that she is concerned about. She states that she did look online and was curious if it was related to "toxic shock syndrome". She was on to describe that she has urinary incontinence and chronically uses pads along with vaginal suppositories of estrogen cream and worries about a vaginal infection that may be causing her to have lower extremity cramping. We discussed causes of leg cramping, including infection, muscle, or musculoskeletal changes, electrolyte abnormalities. This would be unlikely to be related to a vaginal type infection. Otherwise, patient states that she is feeling okay. Denies shortness of breath or chest pain. Denies GI complaints. Objective Vital signs: Temperature 98.2 F 02/05/17 12:26 Pulse Rate 92 02/05/17 12:26 Respiratory Rate 16 02/05/17 12:26 Blood Pressure 116/69 02/05/17 12:26 Pulse Oximetry 93 02/05/17 12:26 Height/Weight/BMI: Height 1.65 m Weight 85.7 kg Body Mass Index 28.1 - Constitutional Present: no acute distress, well nourished, well developed - Routine HEENT Exam Eye: Present: EOMI ENT: Present: mucous membranes moist, dentition normal - Routine Respiratory Exam Present: CTA bilaterally. Absent: wheezes - Routine Cardiovascular Exam Present: RRR, S1, S2. Absent: murmur - Routine Abdominal Exam Present: soft, normoactive bowel sounds, non distended. Absent: tenderness - Routine Extremities Exam Present: pulses intact Comments: LLE knee pain - Routine Skin Exam Present: intact, dry, warm - Routine Neurological Exam Present: alert, oriented X3, CN II-XII intact, moving all extremities - Routine Lymphatic Exam Lymphatic: Absent: adenopathy - Routine Psychiatric Exam Present: normal affect, cooperative Results - Labs CBC & Chem 7: 02/05/17 04:11 02/05/17 04:11 Microbiology Results: Microbiology 02/04/17 07:49 Synovial Fluid, Left Knee Gram Stain - Final 02/04/17 07:49 Synovial Fluid, Left Knee Body Fluid Culture - Preliminary Streptococcus pneumoniae 02/04/17 12:45 Knee, Left Intraop Tissue Gram Stain - Final 02/04/17 12:45 Knee, Left Intraop Tissue Surgical Culture - Preliminary No Growth After 1 Day 02/04/17 12:45 Knee, Lt Intraop Site Gram Stain - Final 02/04/17 12:45 Knee, Lt Intraop Site Surgical Culture - Preliminary Early growth 02/04/17 12:45 Knee, Left Intraop Tissue Gram Stain - Final 02/04/17 12:45 Knee, Left Intraop Tissue Surgical Culture - Preliminary Early growth Assessment and Plan (1) Knee pain, left Current visit: Yes Status: Acute (2) Rheumatoid arthritis Current visit: Yes Status: Acute (3) Hypertension Current visit: Yes Status: Acute (4) GERD (gastroesophageal reflux disease) Current visit: Yes Status: Acute Assessment and Plan: Impression Left knee pain with history of left total knee replacement-rule out infection versus gout versus pseudogout versus other Rheumatoid arthritis Immunocompromised status on methotrexate Anemia-normocytic Leukocytosis Hyponatremia- POA-sodium of [id number], possibly related to recent vomiting, diarrhea and poor by mouth intake Hypokalemia- POA Elevated C-reactive protein Muscle cramping-possibly related to hypokalemia, check magnesium Recent left sided facial pain, consistent with trigeminal neuralgia-currently resolved Plan Orthopedic management as per Dr. García, he she did undergo an open synovial bunionectomy of the left knee with irrigation and spacer exchange yesterday. Awaiting culture results, continues on vancomycin Regarding her lower extremity "cramping". Will will check a magnesium on today' s labs. Sodium slightly decreased 133 Continue to encourage patient to work with physical therapy for ongoing strengthening. Biotene ordered for oral moisture as recommended by patient. Continue to monitor blood pressures , currently on Norvasc 5mg MiraLAX and senna plus daily for bowel motivation Will recheck CBC and BMP tomorrow morning to follow the counts, renal function and electrolytes. Hospital Course Summary Disclaimer: The visit summary below is not to be considered part of the above Progress Note. Hospital Course: 02/05/17 Plan Orthopedic management as per Dr. García, he she did undergo an open synovial bunionectomy of the left knee with irrigation and spacer exchange yesterday. Awaiting culture results, continues on vancomycin Regarding her lower extremity "cramping". Will will check a magnesium on today' s labs. Sodium slightly decreased 133 Continue to encourage patient to work with physical therapy for ongoing strengthening. Biotene ordered for oral moisture as recommended by patient. Continue to monitor blood pressures , currently on Norvasc 5mg MiraLAX and senna plus daily for bowel motivation Will recheck CBC and BMP tomorrow morning to follow the counts, renal function and electrolytes. <Molly Mccarty L - Last Filed: 02/05/17 19:29> - Date 02/05/17 Objective Vital signs: Temperature 101.6 F H 02/05/17 18:24 Pulse Rate 94 02/05/17 16:40 Respiratory Rate 16 02/05/17 16:40 Blood Pressure 152/71 H 02/05/17 16:40 Pulse Oximetry 91 02/05/17 16:40 Height/Weight/BMI: Height 1.65 m Weight 85.7 kg Body Mass Index 28.1 Results - Labs CBC & Chem 7: 02/05/17 04:11 02/05/17 04:11 Microbiology Results: Microbiology 02/05/17 18:44 Peripheral/Iv Start Blood Culture - Preliminary Culture Initiated - Results Pending 02/05/17 18:47 Peripheral/Iv Start Blood Culture - Preliminary Culture Initiated - Results Pending 02/04/17 07:49 Synovial Fluid, Left Knee Gram Stain - Final 02/04/17 07:49 Synovial Fluid, Left Knee Body Fluid Culture - Preliminary Streptococcus pneumoniae 02/04/17 12:45 Knee, Left Intraop Tissue Gram Stain - Final 02/04/17 12:45 Knee, Left Intraop Tissue Surgical Culture - Preliminary No Growth After 1 Day 02/04/17 12:45 Knee, Lt Intraop Site Gram Stain - Final 02/04/17 12:45 Knee, Lt Intraop Site Surgical Culture - Preliminary Early growth 02/04/17 12:45 Knee, Left Intraop Tissue Gram Stain - Final 02/04/17 12:45 Knee, Left Intraop Tissue Surgical Culture - Preliminary Early growth Assessment and Plan (1) Knee pain, left Current visit: Yes Status: Acute (2) Rheumatoid arthritis Current visit: Yes Status: Acute (3) Hypertension Current visit: Yes Status: Acute (4) GERD (gastroesophageal reflux disease) Current visit: Yes Status: Acute Assessment and Plan: 02/05/2017-I reviewed this chart, the patient history, and the ASSISTANT TEACHER PRIMARY's/PA's documented findings as above. We discussed and formulated the assessment and plan as above with the additions below.-Dr. Mccarty The patient is feeling better today. She is eating and drinking okay. She denies any chest pain or shortness of breath. On exam she is alert and in no acute distress. Chest is clear to auscultation. Cardiovascular reveals a regular rate and rhythm. Abdomen is soft and nontender. Extremities are free of edema. Initial culture of the knee reveals strep pneumoniae. Sensitivities are pending. Initial blood cultures are negative to date Impression and plan Infected left knee with strep pneumoniae (total knee replacement March 2016)- discussed with Dr. Hernandez. We'll discontinue vancomycin and start Rocephin 1 g IV daily Consider PICC line tomorrow depending upon Dr. Hernandez's recommendations. The patient did develop fever late this afternoon. We'll repeat blood cultures 2 now. Continue Tylenol as needed. Hospital Course Summary Disclaimer: The visit summary below is not to be considered part of the above Progress Note.
[2017-02-05] MEDS: ACETAMINOPHEN 500 MG TABLET PO PRN (17:16)
[2017-02-05] MEDS: CITALOPRAM 40 MG TABLET PO SCH (20:09)
[2017-02-05] MEDS: QUETIAPINE 200 MG TABLET PO SCH (20:09)
[2017-02-05] MEDS: AMLODIPINE 5 MG TABLET PO SCH (20:09)
[2017-02-05] MEDS: FLUTICASONE NASAL SPRAY 50mcg EA NOSTRIL SCH (20:12)
[2017-02-05] MEDS: CEFTRIAXONE 1 G in NS 100 ML IV SCH (20:13)
[2017-02-05] MEDS: NS FLUSH BAG 500ml IV PRN (20:14)
[2017-02-06] MEDS: HYDROCODONE/APAP 7.5 MG/325 MG TABLET PO PRN ×5 (02:08→21:32)
[2017-02-06] MEDS: OMEPRAZOLE 20 MG CAPSULE PO SCH (06:10)
[2017-02-06] MEDS: NOZIN NASAL SWAB NAS SCH ×3 (06:20→23:00)
--- NOTE | 2017-02-06 09:51 | Infectious Disease Consult ---
Infectious Disease Consult Date of Consultation: 02/06/17 Requesting Physician: Henry García Reason for Consultation: antibiotic recs History of Present Illness: Ms. Armstrong is a 66 y/o woman with RA who underwent L TKA in 2016. She reports that it healed up without problems. On February 01, she developed lightning bolt-like pains in her left jaw up into her left temporal area. The pain came and went quickly but was fairly severe and she went to the emergency room. Per records, she was also having nausea, vomiting and diarrhea , although when I asked her about these symptoms she denied it. She had a CT head that showed no significant abnormalities. C-reactive protein was mildly elevated at 21.3. Other lab was essentially normal. Pain improved with pain medication and she went home. She was still feeling nauseated the following day but that resolved. She then developed cramps in her left leg [id number]. On 02/03/2017 she had worsening knee pain and was seen at the outpatient clinic and at that time lab work showed an elevated white count of 15.6 and an increase in C-reactive protein to 231. She was then admitted to the hospital because of severe knee pain with inability to walk. On 02/04, Dr. García aspirated her L knee and it had 111,000 WBCs, gram stain was negative, but culture grew S. Pneumoniae, sensitive to PCN. She was taken to the OR on 02/04 for irrigation and spacer exchange with placement of antibiotic beads. Surgical cultures are growing the same organism. She was started on Vancomycin , which was changed to ceftriaxone last evening due to continued fever. Patient herself denies to me that she was having fevers at home. Blood cultures have been negative. Medications Home Medications Medication Instructions Recorded Confirmed Type Citalopram Hydrobromide 40 mg PO HS #0 10/12/09 02/03/17 History [Citalopram HBr] Hydroxychloroquine [Plaquenil] 200 mg PO BID #0 10/12/09 02/03/17 History Metaxalone 800 mg PO TIDPRN #0 10/12/09 02/04/17 History Cetirizine HCl 5 mg PO HS #0 03/13/11 02/03/17 History Amlodipine Besylate 5 mg PO HS #0 tab 04/17/16 02/03/17 History Biotin 1 cap PO DAILY #0 04/17/16 02/03/17 History Calcium Carbonate/Vitamin D3 1 cap PO DAILY #0 04/17/16 02/03/17 History [Calcium 600 + Vit D 400 Softgl] Folic Acid 1 tab PO DAILY #0 tab 04/17/16 02/03/17 History Multivitamin [Multi-Day Vitamins] 1 tab PO DAILY #0 tab 04/17/16 02/03/17 History cycloSPORINE [Restasis] 1 drop BOTH EYES DAILY #0 drop 04/17/16 02/03/17 History Estradiol Vag Cream [Estrace Vag 1 applic VAGINAL HS 10/03/16 02/03/17 History Cream] Fluticasone Nasal [place] [Flonase] 2 inh NS HS 10/03/16 02/03/17 History Guaifenesin/Dextromethorphan 1 tab PO BID 10/03/16 02/03/17 History [Mucinex Dm ER 1,200-60 mg Tab] Omeprazole 20 mg PO DAILY 10/03/16 02/03/17 History Quetiapine [SEROquel] 200 mg PO HS 10/03/16 02/03/17 History metHOTREXate sodium [Methotrexate] 6 tab PO WEEKLY 10/03/16 02/03/17 History Cholecalciferol (Vitamin D3) 1,000 unit PO DAILY 02/01/17 02/03/17 History [Vitamin D3] Vitamin E 400 unit PO DAILY 02/01/17 02/03/17 History Allergies Allergy/AdvReac Type Severity Reaction Status Date / Time No Known Drug Allergies Allergy Unknown Verified 02/03/17 23:14 [facility] Patient Stated Medical History Cerebrovascular Accident No Paralysis No Seizures No Syncope No Angina No Cardiac Arrhythmia No Congestive Heart Failure No Coronary Artery Disease No Heart Murmur No Hypertension Yes Hypotension No Myocardial Infarction No Rheumatic Fever No Valvular Heart Disease No Other Cardiology No Asthma No Bronchitis No Chronic Obstructive Pulmonary No Disease (COPD) Pneumonia No Pulmonary Edema No Pulmonary Embolism No Sleep Apnea No Tuberculosis No Other Respiratory No Diabetes Mellitus Type 1 No Diabetes Mellitus Type 2 No Cirrhosis No Gastroesophageal Reflux No Disease Gastrointestinal Bleeding No Hepatitis No Hiatal Hernia No Obstructive Bowel No Ulcer No Other GI No Osteoarthritis No Other Musculoskeletal No Anesthesia Reactions No Blood Transfusions No Chemotherapy No Malignant Hyperthermia No Other No Depression No Post Menopausal Yes Now No Clinic Medical History (Last Reviewed 12/18/16 @ 16:53 by Latonia Guerra) Knee pain, left (Acute Medical) Rheumatoid arthritis (Acute Medical) followed by Dr. Morrow Hypertension (Acute Medical) GERD (gastroesophageal reflux disease) (Acute Medical) Prosthetic joint infection (Suspected Medical) Adult idiopathic generalized osteoporosis (Acute Medical) Anxiety (Acute Medical) Depression (Acute Medical) Discoid lupus (Acute Medical) GERD (gastroesophageal reflux disease) (Acute Medical) Hypertension (Acute Medical) Osteoarthritis (Acute Medical) Headache (Inactive Medical) Hypertension (Inactive Medical) Surgical History: Bilateral breast augmentation, Age 45. TKA, left 2016. Bilateral exchange of saline implants to [place] [employer] breast implants 395 cc tall height, moderate plus profile 10/06/2016 Family History: Family History (Last Reviewed 12/18/16 @ 16:53 by Latonia Guerra) Father Hypertension Coronary artery disease Stroke Paternal Grandmother Diabetes Maternal Grandmother Breast cancer Mother Rheumatoid arthritis Osteoporosis Hypertension Hypercholesterolemia Heart disease Maternal Aunt Breast cancer Maternal Uncle Diabetes - Social History Smoking status: Never smoker Household members: spouse Current occupation: retired Current residence: Apartment/Private Home Review of Systems All systems PM: 10-point ROS was reviewed, no additional remarkable complaints except - Constitutional Constitutional: Present: fever(s), headache(s) (L side, now resolved) - EENMT Eyes: Absent: change in vision EENMT Comments: she reports her dentist told her that she needs root canals, but didn't think her teeth were infected - Cardiovascular Cardiovascular: Absent: chest pain - Respiratory Respiratory: Absent: cough, dyspnea Respiratory Comments: denies recent sinus symptoms other than chronic sinus drainage - Gastrointestinal Gastrointestinal: Absent: diarrhea, nausea, vomiting - Genitourinary Genitourinary: Present: vaginal dryness (uses topical estrogen cream). Absent: dysuria - Musculoskeletal Musculoskeletal: Present: arthralgias (L knee), joint swelling (L knee) - Integumentary/Breasts Integumentary: Absent: rash - Neurological Neurological: Present: headache(s) (now resolved) Exam Vital Signs: Temperature 98.9 F 02/06/17 08:00 Pulse Rate 95 02/06/17 08:00 Respiratory Rate 18 02/06/17 08:00 Blood Pressure 132/71 02/06/17 08:00 Pulse Oximetry 91 02/06/17 08:00 Height/Weight/BMI: Height 1.65 m Weight 86.5 kg Body Mass Index 28.1 - Constitutional Present: no acute distress, well nourished, well developed - Routine HEENT Exam Head: Present: normocephalic, atraumatic Eye: Present: EOMI, PERRL ENT: Present: mucous membranes dry Comments: dentition fair - Routine Neck Exam Present: supple - Routine Respiratory Exam Present: decreased breath sounds - Routine Cardiovascular Exam Present: RRR. Absent: murmur - Routine Abdominal Exam Present: soft, normoactive bowel sounds, non distended. Absent: tenderness - Routine Extremities Exam Present: joint swelling (L knee). Absent: cyanosis, clubbing, edema Comments: L knee is warm to palpation - Routine Skin Exam Present: intact. Absent: rash Comments: L knee incision covered with surgical dressing - Routine Neurological Exam Present: alert, oriented X3, CN II-XII intact. Absent: motor deficit Results - Labs CBC & Chem 7: 02/06/17 04:11 02/06/17 04:11 Microbiology Results: Microbiology 02/04/17 12:45 Knee, Left Intraop Tissue Gram Stain - Final 02/04/17 12:45 Knee, Left Intraop Tissue Surgical Culture - Preliminary Streptococcus pneumoniae 02/04/17 12:45 Knee, Left Intraop Tissue Gram Stain - Final 02/04/17 12:45 Knee, Left Intraop Tissue Surgical Culture - Preliminary Streptococcus pneumoniae 02/04/17 12:45 Knee, Lt Intraop Site Gram Stain - Final 02/04/17 12:45 Knee, Lt Intraop Site Surgical Culture - Preliminary Streptococcus pneumoniae 02/04/17 07:49 Synovial Fluid, Left Knee Gram Stain - Final 02/04/17 07:49 Synovial Fluid, Left Knee Body Fluid Culture - Final Streptococcus pneumoniae 02/05/17 18:44 Peripheral/Iv Start Blood Culture - Preliminary Culture Initiated - Results Pending 02/05/17 18:47 Peripheral/Iv Start Blood Culture - Preliminary Culture Initiated - Results Pending Impression: Prosthetic joint infection L knee, s/p I&D with spacer exchange, placement of antibiotic beads 02/04/17, cultures with S. pneumoniae. Fever Leukocytosis RA on plaquenil/MTX HTN GERD Recommendation: Recommend ceftriaxone 1gm IV daily for 6 weeks post-op, through 03/17/17. She will need a PICC placement. Recommend CXR since she appears to have decreased breath sounds. I discussed with her that this bacteria is typically a respiratory pathogen, and I suspect that she was bacteremic at some point. Blood cultures here on 02/03 are NGTD. She reports that she's had a pneumonia vaccine. Recommend Prevnar if she hasn't had it. I'll check to see if my office can provide her with IV antibiotics at home, but discussed with her that she will need to come to my office in [place] weekly for PICC cares, labs, and to picker feeder the antibiotic.
[2017-02-06] MEDS: CycloSPORINE 0.05% EYE DROPS 4ml EACH EYE SCH (09:52)
[2017-02-06] MEDS: POLYETHYL GLYCOL 3350 17gm PACKET PO SCH (09:52)
[2017-02-06] MEDS: HYDROXYCHLOROQUINE 200 MG TABLET PO SCH ×2 (09:53→18:43)
[2017-02-06] MEDS: ASPIRIN 81 MG CHEWABLE TABLET PO SCH ×2 (09:53→21:32)
[2017-02-06] MEDS: FOLIC ACID 1 MG TABLET PO SCH (09:53)
--- NOTE | 2017-02-06 10:59 | XRay Report ---
INDICATION: decreased breath sounds at bases PROCEDURE: CHEST 2-VIEWS UPRIGHT (PA & LAT) Encounter: Initial COMPARISON: April 10, 2016 FINDINGS: Blunting of the costophrenic angles on the lateral view consistent with small effusions. Slight obscuration of the left hemidiaphragm could represent an infiltrate. Remaining lung aleman are clear. No pneumothorax. The heart size, mediastinal contours and pulmonary vascularity are within normal limits. There is no significant skeletal abnormality. IMPRESSION: Small pleural effusions with possible left basilar infiltrate .
[2017-02-06] MEDS ORDERED: IRON - PHARMACY CONSULT MC ONE (14:27)
--- NOTE | 2017-02-06 14:55 | Progress Note ---
<Yareli Hagan D - Last Filed: 02/06/17 14:51> - Date 02/06/17 Subjective: Nona was resting in the chair in her room, but easily awakened. She denies feeling weak or dizzy, but admits that sometimes it's a bit difficult to walk b/ c of knee pain. She is planning on using a walker at home. She denies any f/c or sweating. She denies any SOA, cough, congestion, or chest pain. She had a BM last night and denies abdominal pain or n/v. Discussed DC plans - she plans on going home and will have her bring her in to [facility] infusion center for daily Rocephin every day after he gets home from work. Objective Vital signs: Temperature 99.4 F 02/06/17 12:00 Pulse Rate 89 02/06/17 12:00 Respiratory Rate 16 02/06/17 12:00 Blood Pressure 141/74 H 02/06/17 12:00 Pulse Oximetry 97 02/06/17 12:00 Height/Weight/BMI: Height 1.65 m Weight 86.5 kg Body Mass Index 28.1 - Constitutional Present: no acute distress, well nourished, well developed - Routine HEENT Exam Eye: Absent: conjunctival icterus, scleral injection ENT: Present: mucous membranes moist, oropharynx clear, dentition normal - Routine Respiratory Exam Present: decreased breath sounds, crackles (left) - Routine Cardiovascular Exam Present: RRR, S1, S2, murmur (3/6 systolic) - Routine Abdominal Exam Present: soft, normoactive bowel sounds, non distended, non tender - Routine Extremities Exam Present: edema (trace pedal edema), pulses intact - Routine Musculoskeletal Exam Musculoskeletal: Present: limited range of motion (left knee; polar pack in place.) - Routine Skin Exam Present: intact, dry, warm - Routine Neurological Exam Present: alert, oriented X3, CN II-XII intact, normal speech - Routine Psychiatric Exam Present: normal affect, normal thought process, cooperative Results - Labs CBC & Chem 7: 02/06/17 04:11 02/06/17 04:11 Microbiology Results: Microbiology 02/04/17 12:45 Knee, Left Intraop Tissue Gram Stain - Final 02/04/17 12:45 Knee, Left Intraop Tissue Surgical Culture - Preliminary Streptococcus pneumoniae 02/04/17 12:45 Knee, Left Intraop Tissue Gram Stain - Final 02/04/17 12:45 Knee, Left Intraop Tissue Surgical Culture - Preliminary Streptococcus pneumoniae 02/04/17 12:45 Knee, Lt Intraop Site Gram Stain - Final 02/04/17 12:45 Knee, Lt Intraop Site Surgical Culture - Preliminary Streptococcus pneumoniae 02/04/17 07:49 Synovial Fluid, Left Knee Gram Stain - Final 02/04/17 07:49 Synovial Fluid, Left Knee Body Fluid Culture - Final Streptococcus pneumoniae 02/05/17 18:44 Peripheral/Iv Start Blood Culture - Preliminary Culture Initiated - Results Pending 02/05/17 18:47 Peripheral/Iv Start Blood Culture - Preliminary Culture Initiated - Results Pending - Imaging and Cardiology Chest x-ray Status: image reviewed by me Additional comments: Date of Exam: 02/06/17 Ordering Provider: Alise Hernandez MD Type of Exam(s): XR chest 2V INDICATION: decreased breath sounds at bases FINDINGS: Blunting of the costophrenic angles on the lateral view consistent with small effusions. Slight obscuration of the left hemidiaphragm could represent an infiltrate. Remaining lung aleman are clear. No pneumothorax. The heart size, mediastinal contours and pulmonary vascularity are within normal limits. There is no significant skeletal abnormality. IMPRESSION: Small pleural effusions with possible left basilar infiltrate Assessment and Plan (1) Prosthetic joint infection Current visit: Yes Status: Suspected Assessment and Plan: IMPRESSION Prosthetic joint infection L knee, s/p I&D with spacer exchange, placement of antibiotic beads 02/04/17, cultures with S. pneumoniae. Iron deficiency anemia Leukocytosis - resolved Hyponatremia RA on plaquenil/MTX HTN GERD PLAN Dr. Hernandez evaluated pt today - recommends ceftriaxone 1 gm daily x6 weeks from I &D, through 03/17/17. CXR reviewed - poss left basilar infiltrate & small pleural effusions. D/W Dr. Hernandez - does not recommend additional abx other than ceftriaxone. Cont IS. PICC line ordered - pending placement. BC from yesterday pending; BC from 02/03 NGTD. Hgb with steady decline and low iron levels - give IV iron today; poss DC home tomorrow. Mild hyponatremia - stable at 133. However, with weight gain (10 kg), decreased breath sounds and b/l pleural effusions, will give Lasix 20 mg IV x1. D/W Dr. Hernandez, Dr. Mccarty, CM, and RN. GI Prophylaxis: other (omeprazole) Resuscitation Status: Full Code Hospital Course Summary Disclaimer: The visit summary below is not to be considered part of the above Progress Note. Hospital Course: 02/04/[address] García plans to take the patient to the OR later today for I&D of her left knee. Regarding hyponatremia, she is currently on normal saline. Recheck sodium now. Regarding hypokalemia, will repeat potassium now and may need to replace IV. Will also check magnesium. Repeat CBC with differential and comprehensive metabolic tomorrow. Await culture results. Await crystal analysis of the synovial fluid We'll initiate an anemia workup Hold methotrexate for now 02/05/17 Orthopedic management as per Dr. García, he she did undergo an open synovial bunionectomy of the left knee with irrigation and spacer exchange yesterday. Awaiting culture results, continues on vancomycin Regarding her lower extremity "cramping". Will will check a magnesium on today' s labs. Sodium slightly decreased 133 Continue to encourage patient to work with physical therapy for ongoing strengthening. Biotene ordered for oral moisture as recommended by patient. Continue to monitor blood pressures , currently on Norvasc 5mg MiraLAX and senna plus daily for bowel motivation Will recheck CBC and BMP tomorrow morning to follow the counts, renal function and electrolytes. 02/06/17 Dr. Hernandez evaluated pt today - recommends ceftriaxone 1 gm daily x6 weeks from I &D, through 03/17/17. CXR reviewed - poss left basilar infiltrate & small pleural effusions. D/W Dr. Hernandez - does not recommend additional abx other than ceftriaxone. Cont IS. PICC line ordered - pending placement. BC from yesterday pending; BC from 02/03 NGTD. Hgb with steady decline and low iron levels - give IV iron today; poss DC home tomorrow. Mild hyponatremia - stable at 133. However, with weight gain (10 kg), decreased breath sounds and b/l pleural effusions, will give Lasix 20 mg IV x1. <Molly Mccarty L - Last Filed: 02/06/17 18:44> - Date 02/06/17 Objective Vital signs: Temperature 99.2 F 02/06/17 17:09 Pulse Rate 88 02/06/17 18:25 Respiratory Rate 18 02/06/17 18:25 Blood Pressure 132/73 02/06/17 18:25 Pulse Oximetry 98 02/06/17 18:25 Height/Weight/BMI: Height 1.65 m Weight 86.5 kg Body Mass Index 28.1 Results - Labs CBC & Chem 7: 02/06/17 04:11 02/06/17 04:11 Microbiology Results: Microbiology 02/04/17 12:45 Knee, Left Intraop Tissue Gram Stain - Final 02/04/17 12:45 Knee, Left Intraop Tissue Surgical Culture - Preliminary Streptococcus pneumoniae 02/04/17 12:45 Knee, Left Intraop Tissue Gram Stain - Final 02/04/17 12:45 Knee, Left Intraop Tissue Surgical Culture - Preliminary Streptococcus pneumoniae 02/04/17 12:45 Knee, Lt Intraop Site Gram Stain - Final 02/04/17 12:45 Knee, Lt Intraop Site Surgical Culture - Preliminary Streptococcus pneumoniae 02/04/17 07:49 Synovial Fluid, Left Knee Gram Stain - Final 02/04/17 07:49 Synovial Fluid, Left Knee Body Fluid Culture - Final Streptococcus pneumoniae 02/05/17 18:44 Peripheral/Iv Start Blood Culture - Preliminary Culture Initiated - Results Pending 02/05/17 18:47 Peripheral/Iv Start Blood Culture - Preliminary Culture Initiated - Results Pending Assessment and Plan (1) Prosthetic joint infection Current visit: Yes Status: Suspected Assessment and Plan: 02/06/2017-I reviewed this chart, the patient history, and the CHIEF [employer]PERATOR [employer]'s/PA's documented findings as above. We discussed and formulated the assessment and plan as above with the additions below.-Dr. Mccarty The patient was seen in her room this afternoon accompanied by her . She states her knee pain is improving and she is able to get up and walk a walker. She states the thigh muscle spasms have markedly improved. She is breathing well and denies any cough. On exam she is alert and oriented and in no acute distress. Chest is clear to auscultation with decreased breath sounds in the bases. Cardiovascular reveals a regular rate and rhythm. Abdomen is soft and nontender. Extremities reveal no edema. Lab today reveals hemoglobin of 8.6 down from 9.2 and 9.8. B-12 and folate are normal. Iron studies reveal iron to be low at 12, TIBC low at 259, iron sat low at 5%. Patient states she's been told in the past that she is iron deficient and has been on oral iron for the past 1-2 months. She denies having any vomiting. She denies any abdominal pain. She denies any bloody stools or tarry black stools. Impression and plan Regarding prosthetic joint infection of the left knee with strep pneumo-plan for 6 weeks of Rocephin. The patient plans to come into the [facility] infusion center for antibiotics daily. Dr. Hernandez would like a CBC with differential, CMP, sedimentation rate, and C-reactive protein once weekly on Mondays. Please fax to her office at [phone]. She would like to see her in the office in 3 weeks. The patient will need routine PICC line care through the infusion center. Regarding rheumatoid arthritis-continue off of methotrexate for now Regarding iron deficiency anemia failing oral iron-we'll give IV iron today per pharmacy protocol Regarding chest x-ray with small pleural effusions and questionable left basilar infiltrate-we'll give Lasix 1 tonight. Recommend incentive spirometer. Continue Rocephin. Hospital Course Summary Disclaimer: The visit summary below is not to be considered part of the above Progress Note.
--- NOTE | 2017-02-06 14:59 | Pharmacy Consult ---
Pharmacy Consult-Iron - Laboratory Information Iron [facility] 02/04/17 02/04/17 02/05/17 04:34 10:25 04:11 Hgb 9.8 L D 9.2 L Hct 28.7 L D 27.6 L Iron 12 L TIBC 259 L % Saturation 5 L 02/06/17 04:11 Hgb 8.6 L Hct 25.8 L Iron TIBC % Saturation - Consult Information IV IRON CONSULT: Dx: Chronic Anemia: Will give TDI (Total Dose Infusion) over 4 hours. Actual body weight = 86.5 kg Hgb Level = 8.6 g/dL Calculated Dosing weight = 56.5 kg Total dose needed: 1500 mg (30 mL) Will give test dose of 25mg IV push over 30 seconds. Watch VS q 15 minutes x 1 hr. (watching for anaphylaxis, respiratory distress, hives.) If no reaction will give full dose in NS 500ml TRA 125ml/hr. Watch VS q 1 hr during infusion. Thank you, Kian Schuler, Pharmacist.
[2017-02-06] MEDS ORDERED: IRON DEXTRAN COMPLEX 100mg/2ml INJECTION IVP ONE (15:00)
[2017-02-06] MEDS ORDERED: FUROSEMIDE 20 MG/2 ML INJECTION IVP ONE (15:16)
[2017-02-06] MEDS ORDERED: IRON DEXTRAN IV ONE (16:00)
[2017-02-06] MEDS ORDERED: NS IV ONE (16:00)
[2017-02-06] MEDS: CITALOPRAM 40 MG TABLET PO SCH (21:32)
[2017-02-06] MEDS: QUETIAPINE 200 MG TABLET PO SCH (21:33)
[2017-02-06] MEDS: AMLODIPINE 5 MG TABLET PO SCH (21:33)
[2017-02-06] MEDS: FLUTICASONE NASAL SPRAY 50mcg EA NOSTRIL SCH (21:33)
[2017-02-06] MEDS: CEFTRIAXONE 1 G in NS 100 ML IV SCH (22:52)
[2017-02-07] MEDS: HYDROCODONE/APAP 7.5 MG/325 MG TABLET PO PRN ×3 (05:14→20:54)
[2017-02-07] MEDS: OMEPRAZOLE 20 MG CAPSULE PO SCH ×2 (05:15→05:38)
[2017-02-07] MEDS: NOZIN NASAL SWAB NAS SCH ×5 (05:20→22:30)
[2017-02-07] MEDS: HYDROXYCHLOROQUINE 200 MG TABLET PO SCH ×2 (09:34→17:42)
[2017-02-07] MEDS: ACETAMINOPHEN 500 MG TABLET PO PRN ×2 (09:34→17:42)
[2017-02-07] MEDS: ASPIRIN 81 MG CHEWABLE TABLET PO SCH ×2 (09:34→20:55)
[2017-02-07] MEDS: CycloSPORINE 0.05% EYE DROPS 4ml EACH EYE SCH (09:35)
[2017-02-07] MEDS: POLYETHYL GLYCOL 3350 17gm PACKET PO SCH (09:35)
[2017-02-07] MEDS: FOLIC ACID 1 MG TABLET PO SCH (09:35)
--- NOTE | 2017-02-07 11:49 | Progress Note ---
<Yareli Hagan D - Last Filed: 02/07/17 11:46> - Date 02/07/17 Subjective: Nona was seen during breakfast. She c/o feeling groggy and thinks it's from the pain pills. We reviewed SE profile of narcotics. She denies SOA or cough or CP. No abdominal pain and she reports a good appetite. Last BM was 02/05. She plans to come for her daily infusions after her gets of work at 4 pm; approximately 4:30 for daily infusion. Objective Vital signs: Temperature 98.6 F 02/07/17 11:11 Pulse Rate 85 02/07/17 11:11 Respiratory Rate 16 02/07/17 11:11 Blood Pressure 133/69 02/07/17 11:11 Pulse Oximetry 90 02/07/17 11:11 Height/Weight/BMI: Height 1.65 m Weight 83.5 kg Body Mass Index 28.1 - Constitutional Present: no acute distress, well nourished, well developed - Routine HEENT Exam Eye: Absent: conjunctival icterus, scleral injection ENT: Present: mucous membranes moist, oropharynx clear - Routine Respiratory Exam Present: diminished air movement (improving ) - Routine Cardiovascular Exam Present: RRR, S1, S2, murmur - Routine Abdominal Exam Present: soft, normoactive bowel sounds, non distended, non tender - Routine Extremities Exam Present: edema (trace) - Routine Musculoskeletal Exam Musculoskeletal: Present: other (polar pack left knee) - Routine Skin Exam Present: intact, dry, warm - Routine Neurological Exam Present: alert, oriented X3, normal speech - Routine Psychiatric Exam Present: normal affect, normal thought process, cooperative Results - Labs CBC & Chem 7: 02/07/17 05:04 02/07/17 05:04 Microbiology Results: Microbiology 02/04/17 12:45 Knee, Left Intraop Tissue Gram Stain - Final 02/04/17 12:45 Knee, Left Intraop Tissue Surgical Culture - Final Streptococcus pneumoniae 02/04/17 07:49 Synovial Fluid, Left Knee Gram Stain - Final 02/04/17 07:49 Synovial Fluid, Left Knee Body Fluid Culture - Final Streptococcus pneumoniae 02/04/17 12:45 Knee, Left Intraop Tissue Gram Stain - Final 02/04/17 12:45 Knee, Left Intraop Tissue Surgical Culture - Final Streptococcus pneumoniae 02/04/17 12:45 Knee, Lt Intraop Site Gram Stain - Final 02/04/17 12:45 Knee, Lt Intraop Site Surgical Culture - Final Streptococcus pneumoniae 02/05/17 18:44 Peripheral/Iv Start Blood Culture - Preliminary No Growth After 1 Day 02/05/17 18:47 Peripheral/Iv Start Blood Culture - Preliminary No Growth After 1 Day Assessment and Plan (1) Prosthetic joint infection Current visit: Yes Status: Suspected Assessment and Plan: IMPRESSION Prosthetic joint infection L knee, s/p I&D with spacer exchange, placement of antibiotic beads 02/04/17, cultures with S. pneumoniae. Iron deficiency anemia - IV iron given on 02/06/17 (iron low at 12, TIBC low at 259, iron sat low at 5%) Leukocytosis - resolved Hyponatremia - resolved. RA on plaquenil/MTX HTN GERD PLAN WBC increased to 12.6 today after being normal x2 days. Last documented fever was 02/05 at 1824. Continue ceftriaxone through 03/17/17. Will adjust timing of infusion - currently at 2000; tonight will give at 1800 and tomorrow will give at 1630, which is the time she plans on coming in daily for infusion. Dr. Hernandez would like a CBC with differential, CMP, sedimentation rate, and C-reactive protein once weekly on Mondays. Please fax to her office at [phone]. She would like to see her in the office in 3 weeks. The patient will need routine PICC line care through the infusion center. She responded well to Lasix yesterday - weight is down x3 kg and breath sounds improved. Continue IS. Hyponatremia has resolved. Hgb low but stable at 8.6; s/p IV iron infusion yesterday. Continue to hold MTX. Discharge not safe today with increased WBC. Repeat labs in am. GI Prophylaxis: other Resuscitation Status: Full Code Hospital Course Summary Disclaimer: The visit summary below is not to be considered part of the above Progress Note. Hospital Course: 02/04/[address] García plans to take the patient to the OR later today for I&D of her left knee. Regarding hyponatremia, she is currently on normal saline. Recheck sodium now. Regarding hypokalemia, will repeat potassium now and may need to replace IV. Will also check magnesium. Repeat CBC with differential and comprehensive metabolic tomorrow. Await culture results. Await crystal analysis of the synovial fluid We'll initiate an anemia workup Hold methotrexate for now 02/05/17 Orthopedic management as per Dr. García, he she did undergo an open synovial bunionectomy of the left knee with irrigation and spacer exchange yesterday. Awaiting culture results, continues on vancomycin Regarding her lower extremity "cramping". Will will check a magnesium on today' s labs. Sodium slightly decreased 133 Continue to encourage patient to work with physical therapy for ongoing strengthening. Biotene ordered for oral moisture as recommended by patient. Continue to monitor blood pressures , currently on Norvasc 5mg MiraLAX and senna plus daily for bowel motivation Will recheck CBC and BMP tomorrow morning to follow the counts, renal function and electrolytes. 02/06/17 Dr. Hernandez evaluated pt today - recommends ceftriaxone 1 gm daily x6 weeks from I &D, through 03/17/17. CXR reviewed - poss left basilar infiltrate & small pleural effusions. D/W Dr. Hernandez - does not recommend additional abx other than ceftriaxone. Cont IS. PICC line ordered - pending placement. BC from yesterday pending; BC from 02/03 NGTD. Hgb with steady decline and low iron levels - give IV iron today; poss DC home tomorrow. Mild hyponatremia - stable at 133. However, with weight gain (10 kg), decreased breath sounds and b/l pleural effusions, will give Lasix 20 mg IV x1. 02/07/17 WBC increased to 12.6 today after being normal x2 days. Last documented fever was 02/05 at 1824. Continue ceftriaxone through 03/17/17. Will adjust timing of infusion - currently at 2000; tonight will give at 1800 and tomorrow will give at 1630, which is the time she plans on coming in daily for infusion. Dr. Hernandez would like a CBC with differential, CMP, sedimentation rate, and C-reactive protein once weekly on Mondays. Please fax to her office at [phone]. She would like to see her in the office in 3 weeks. The patient will need routine PICC line care through the infusion center. She responded well to Lasix yesterday - weight is down x3 kg and breath sounds improved. Continue IS. Hyponatremia has resolved. Hgb low but stable at 8.6; s/p IV iron infusion yesterday. Discharge not safe today with increased WBC. <Johnny Barbour D - Last Filed: 02/07/17 17:09> - Date 02/07/17 Objective Vital signs: Temperature 98.1 F 02/07/17 16:15 Pulse Rate 84 02/07/17 15:22 Respiratory Rate 16 02/07/17 15:22 Blood Pressure 132/71 02/07/17 15:22 Pulse Oximetry 97 02/07/17 15:22 Height/Weight/BMI: Height 1.65 m Weight 83.5 kg Body Mass Index 28.1 Results - Labs CBC & Chem 7: 02/07/17 05:04 02/07/17 05:04 Microbiology Results: Microbiology 02/04/17 12:45 Knee, Left Intraop Tissue Gram Stain - Final 02/04/17 12:45 Knee, Left Intraop Tissue Surgical Culture - Final Streptococcus pneumoniae 02/04/17 07:49 Synovial Fluid, Left Knee Gram Stain - Final 02/04/17 07:49 Synovial Fluid, Left Knee Body Fluid Culture - Final Streptococcus pneumoniae 02/04/17 12:45 Knee, Left Intraop Tissue Gram Stain - Final 02/04/17 12:45 Knee, Left Intraop Tissue Surgical Culture - Final Streptococcus pneumoniae 02/04/17 12:45 Knee, Lt Intraop Site Gram Stain - Final 02/04/17 12:45 Knee, Lt Intraop Site Surgical Culture - Final Streptococcus pneumoniae 02/05/17 18:44 Peripheral/Iv Start Blood Culture - Preliminary No Growth After 1 Day 02/05/17 18:47 Peripheral/Iv Start Blood Culture - Preliminary No Growth After 1 Day Assessment and Plan (1) Prosthetic joint infection Current visit: Yes Status: Suspected Assessment and Plan: IMPRESSION Prosthetic joint infection L knee, s/p I&D with spacer exchange, placement of antibiotic beads 02/04/17, cultures with S. pneumoniae. Iron deficiency anemia - IV iron given on 02/06/17 (iron low at 12, TIBC low at 259, iron sat low at 5%) Leukocytosis - resolved Hyponatremia (POA) - resolved. RA on plaquenil/MTX HTN GERD Constipation Have independently interviewed and examined pt. Chart reviewed. Case discussed with my ACCOUNTING BOOKKEEPER. Care plan developed with my supervision; agree with above. Doing okay today. Notes some chills (? room temp not right). Pain to knee variable, but manageable. Feels pain medications are helping; tolerates pain medicines. Breathing well. No chest pain. Eating well. No ab pain. Stools slow, but did have bowel movement. Lungs: clear bilaterally CV: regular AB: soft nt/nd +BS MSE: awake alert appropriate. Thoughts linear. Plan: With increase of WBC, feel should hold on discharge plans for today. Continue with Rocephin. Continue pain control. Continue with supportive care. Patient in agreement with continuing hospitalization. Time spent with patient care 25 minutes. - Time spent with patient Time with patient PN: 25 minutes Hospital Course Summary Disclaimer: The visit summary below is not to be considered part of the above Progress Note.
--- NOTE | 2017-02-07 12:05 | Orthopedic Progress Note ---
Date: Subjective/Severity of Illness: Nona is doing well. No increased pain. Knee dressing looks good and surrounding tissues without erythema or warmth. No other joints bothering her. WBC up some this AM. Orthopedic Objective PO Vital signs: Temperature 98.6 F 02/07/17 11:11 Pulse Rate 85 02/07/17 11:11 Respiratory Rate 16 02/07/17 11:11 Blood Pressure 133/69 02/07/17 11:11 Pulse Oximetry 90 02/07/17 11:11 Height and Weight: Height 5 ft 5 in Weight 184 lb 1.376 oz Body Mass Index 28.1 - Constitutional General Appearance: Present: alert, well developed, well nourished - Respiratory Exam Present: non-labored - Cardiovascular Exam Present: pedal pulses intact - Extremities Exam Extremities: Present: pulses intact. Absent: calf tenderness - Surgical Site Incision: clean, dry, intact, Mepilex dressing intact, no drainage - Integumentary Exam Present: pink, warm, dry. Absent: erythema - Neurological Exam Present: no deficits - Psychiatric Exam Present: alert, normal affect - Labs Result Diagrams: 02/07/17 05:04 02/07/17 05:04 Abnormal lab results 02/07/17 02/07/17 Range/Units 05:04 05:04 WBC 12.6 H (4.5-11.0) T/MM3 RBC 2.86 L (4.00-5.20) M/MM3 Hgb 8.6 L (12-16) GM/DL Hct 25.4 L (36-46) % Plt Count 410 H (130-400) T/MM3 Neutrophils % (Manual) 88.0 H (33-66) % Lymphocytes % (Manual) 3.0 L (23-45) % Neutrophils # (Manual) 11.1 H (1.8-7.7) T/MM3 Lymphocytes # (Manual) 0.4 L (1-4.8) T/MM3 Calculated Osmolality 258 L (261-280) MOSM/KG C-Reactive Protein 249.2 H (0-9) MG/L H & H 02/04/17 02/05/17 02/06/17 Range/Units 04:34 04:11 04:11 Hgb 9.8 L D 9.2 L 8.6 L (12-16) GM/DL Hct 28.7 L D 27.6 L 25.8 L (36-46) % 02/07/17 Range/Units 05:04 Hgb 8.6 L (12-16) GM/DL Hct 25.4 L (36-46) % Orthopedic Assessment and Plan (1) Prosthetic joint infection Status: Suspected Qualifiers: Encounter type: initial encounter Qualified Code(s): T84.50XA - Infection and inflammatory reaction due to unspecified internal joint prosthesis, initial encounter Assessment and Plan: Antibiotic plans are set. PT/OT for mobility WBC up slightly today but afebrile. Discharge plans per hospitalist. Hospital Course Summary Disclaimer: The visit summary below is not to be considered part of the above Progress Note. Hospital Course: 02/04/[address] García plans to take the patient to the OR later today for I&D of her left knee. Regarding hyponatremia, she is currently on normal saline. Recheck sodium now. Regarding hypokalemia, will repeat potassium now and may need to replace IV. Will also check magnesium. Repeat CBC with differential and comprehensive metabolic tomorrow. Await culture results. Await crystal analysis of the synovial fluid We'll initiate an anemia workup Hold methotrexate for now 02/05/17 Orthopedic management as per Dr. García, he she did undergo an open synovial bunionectomy of the left knee with irrigation and spacer exchange yesterday. Awaiting culture results, continues on vancomycin Regarding her lower extremity "cramping". Will will check a magnesium on today' s labs. Sodium slightly decreased 133 Continue to encourage patient to work with physical therapy for ongoing strengthening. Biotene ordered for oral moisture as recommended by patient. Continue to monitor blood pressures , currently on Norvasc 5mg MiraLAX and senna plus daily for bowel motivation Will recheck CBC and BMP tomorrow morning to follow the counts, renal function and electrolytes. 02/06/17 Dr. Hernandez evaluated pt today - recommends ceftriaxone 1 gm daily x6 weeks from I &D, through 03/17/17. CXR reviewed - poss left basilar infiltrate & small pleural effusions. D/W Dr. Hernandez - does not recommend additional abx other than ceftriaxone. Cont IS. PICC line ordered - pending placement. BC from yesterday pending; BC from 02/03 NGTD. Hgb with steady decline and low iron levels - give IV iron today; poss DC home tomorrow. Mild hyponatremia - stable at 133. However, with weight gain (10 kg), decreased breath sounds and b/l pleural effusions, will give Lasix 20 mg IV x1. 02/07/17 WBC increased to 12.6 today after being normal x2 days. Last documented fever was 02/05 at 1824. Continue ceftriaxone through 03/17/17. Will adjust timing of infusion - currently at 2000; tonight will give at 1800 and tomorrow will give at 1630, which is the time she plans on coming in daily for infusion. Dr. Hernandez would like a CBC with differential, CMP, sedimentation rate, and C-reactive protein once weekly on Mondays. Please fax to her office at [phone]. She would like to see her in the office in 3 weeks. The patient will need routine PICC line care through the infusion center. She responded well to Lasix yesterday - weight is down x3 kg and breath sounds improved. Continue IS. Hyponatremia has resolved. Hgb low but stable at 8.6; s/p IV iron infusion yesterday. Discharge not safe today with increased WBC.
[2017-02-07] MEDS: SENNA + DOCUSATE TABLET PO SCH ×2 (13:02→20:54)
[2017-02-07] MEDS ORDERED: CEFTRIAXONE 1 G in NS 100 ML IV SCH (18:00)
[2017-02-07] MEDS: FLUTICASONE NASAL SPRAY 50mcg EA NOSTRIL SCH (20:53)
[2017-02-07] MEDS: QUETIAPINE 200 MG TABLET PO SCH (20:55)
[2017-02-07] MEDS: CITALOPRAM 40 MG TABLET PO SCH (20:55)
[2017-02-07] MEDS: AMLODIPINE 5 MG TABLET PO SCH (20:55)
[2017-02-08] MEDS: HYDROCODONE/APAP 7.5 MG/325 MG TABLET PO PRN ×4 (00:37→20:19)
[2017-02-08] MEDS: NOZIN NASAL SWAB NAS SCH ×3 (06:15→22:26)
[2017-02-08] MEDS: OMEPRAZOLE 20 MG CAPSULE PO SCH (06:15)
--- NOTE | 2017-02-08 09:07 | Orthopedic Progress Note ---
Date: Subjective/Severity of Illness: Nona was getting out of bed last night when the knee incision began bleeding. It continues to bleed this AM. Her pain levels are about the same. She is on IV Rocephin. Remains Afebrile but WBC has been slowly increasing and CRP is 249. I was able to express some purlent material out of the incision this AM. Orthopedic Objective PO Vital signs: Temperature 98.2 F 02/08/17 08:00 Pulse Rate 89 02/08/17 08:00 Respiratory Rate 16 02/08/17 08:00 Blood Pressure 129/74 02/08/17 08:00 Pulse Oximetry 90 02/08/17 08:00 Height and Weight: Height 5 ft 5 in Weight 179 lb 3.773 oz Body Mass Index 28.1 - Constitutional General Appearance: Present: alert, no acute distress, well nourished - Respiratory Exam Present: non-labored - Cardiovascular Exam Present: pedal pulses intact - Extremities Exam Extremities: Present: pulses intact - Surgical Site Incision: erythema (Mild erythema noted around the knee. Slight warmth.) Wound Drainage: purulent, serosanguinous, moderate amount - Integumentary Exam Present: erythema - Neurological Exam Present: no deficits - Psychiatric Exam Present: alert, normal affect - Wound Management Left Knee Wound Type: Surgical Incision - Labs Result Diagrams: 02/08/17 04:50 02/08/17 04:50 Abnormal lab results 02/08/17 02/08/17 Range/Units 04:50 04:50 WBC 13.8 H (4.5-11.0) T/MM3 RBC 2.95 L (4.00-5.20) M/MM3 Hgb 8.8 L (12-16) GM/DL Hct 26.1 L (36-46) % Plt Count 511 H (130-400) T/MM3 MPV 9.1 L (9.4-12.4) UM3 Neutrophils % (Manual) 81.0 H (33-66) % Lymphocytes % (Manual) 13.0 L (23-45) % Neutrophils # (Manual) 11.2 H (1.8-7.7) T/MM3 Calculated Osmolality 259 L (261-280) MOSM/KG Calcium 10.3 H (8.4-10.2) MG/DL H & H 02/04/17 02/05/17 02/06/17 Range/Units 04:34 04:11 04:11 Hgb 9.8 L D 9.2 L 8.6 L (12-16) GM/DL Hct 28.7 L D 27.6 L 25.8 L (36-46) % 02/07/17 02/08/17 Range/Units 05:04 04:50 Hgb 8.6 L 8.8 L (12-16) GM/DL Hct 25.4 L 26.1 L (36-46) % Orthopedic Assessment and Plan (1) Prosthetic joint infection Status: Suspected Qualifiers: Encounter type: initial encounter Qualified Code(s): T84.50XA - Infection and inflammatory reaction due to unspecified internal joint prosthesis, initial encounter Assessment and Plan: Add Vanco. Will discuss Rocephin with hospitalist service. Bed rest. Discussed findings with Dr García. 9 gil placed in the mid-incision using sterile technique. WBC trending upward and CRP elevated yesterday. Cancel any discharge plans. Hospital Course Summary Disclaimer: The visit summary below is not to be considered part of the above Progress Note. Hospital Course: 02/04/[address] García plans to take the patient to the OR later today for I&D of her left knee. Regarding hyponatremia, she is currently on normal saline. Recheck sodium now. Regarding hypokalemia, will repeat potassium now and may need to replace IV. Will also check magnesium. Repeat CBC with differential and comprehensive metabolic tomorrow. Await culture results. Await crystal analysis of the synovial fluid We'll initiate an anemia workup Hold methotrexate for now 02/05/17 Orthopedic management as per Dr. García, he she did undergo an open synovial bunionectomy of the left knee with irrigation and spacer exchange yesterday. Awaiting culture results, continues on vancomycin Regarding her lower extremity "cramping". Will will check a magnesium on today' s labs. Sodium slightly decreased 133 Continue to encourage patient to work with physical therapy for ongoing strengthening. Biotene ordered for oral moisture as recommended by patient. Continue to monitor blood pressures , currently on Norvasc 5mg MiraLAX and senna plus daily for bowel motivation Will recheck CBC and BMP tomorrow morning to follow the counts, renal function and electrolytes. 02/06/17 Dr. Hernandez evaluated pt today - recommends ceftriaxone 1 gm daily x6 weeks from I &D, through 03/17/17. CXR reviewed - poss left basilar infiltrate & small pleural effusions. D/W Dr. Hernandez - does not recommend additional abx other than ceftriaxone. Cont IS. PICC line ordered - pending placement. BC from yesterday pending; BC from 02/03 NGTD. Hgb with steady decline and low iron levels - give IV iron today; poss DC home tomorrow. Mild hyponatremia - stable at 133. However, with weight gain (10 kg), decreased breath sounds and b/l pleural effusions, will give Lasix 20 mg IV x1. 02/07/17 WBC increased to 12.6 today after being normal x2 days. Last documented fever was 02/05 at 1824. Continue ceftriaxone through 03/17/17. Will adjust timing of infusion - currently at 2000; tonight will give at 1800 and tomorrow will give at 1630, which is the time she plans on coming in daily for infusion. Dr. Hernandez would like a CBC with differential, CMP, sedimentation rate, and C-reactive protein once weekly on Mondays. Please fax to her office at [phone]. She would like to see her in the office in 3 weeks. The patient will need routine PICC line care through the infusion center. She responded well to Lasix yesterday - weight is down x3 kg and breath sounds improved. Continue IS. Hyponatremia has resolved. Hgb low but stable at 8.6; s/p IV iron infusion yesterday. Discharge not safe today with increased WBC.
[2017-02-08] MEDS ORDERED: VANCOMYCIN - PHARMACY CONSULT MC ONE (09:35)
[2017-02-08] MEDS: SENNA + DOCUSATE TABLET PO SCH ×2 (10:19→20:20)
[2017-02-08] MEDS: FOLIC ACID 1 MG TABLET PO SCH (10:19)
[2017-02-08] MEDS: CycloSPORINE 0.05% EYE DROPS 4ml EACH EYE SCH (10:19)
--- NOTE | 2017-02-08 10:19 | Pharmacy Consult-Antibiotics ---
Pharmacy Consult-Vancomycin - Laboratory Information WBC 13.8 T/MM3 (4.5-11.0) H 02/08/17 04:50 BUN 11.0 MG/DL (7-17) 02/08/17 04:50 Creatinine 1.0 MG/DL (0.7-1.2) 02/08/17 04:50 - Consult Information Vancomycin restarted at 1 gram IV q12h per Florinda SUTTON consult. Will continue to monitor. Thank
[2017-02-08] MEDS: HYDROXYCHLOROQUINE 200 MG TABLET PO SCH (10:20)
[2017-02-08] MEDS: ASPIRIN 81 MG CHEWABLE TABLET PO SCH ×2 (10:20→20:19)
[2017-02-08] MEDS: POLYETHYL GLYCOL 3350 17gm PACKET PO SCH (10:20)
--- NOTE | 2017-02-08 11:20 | Progress Note ---
<TezLinnea D - Last Filed: 02/08/17 11:15> - Date 02/08/17 Subjective: Nona is seen today in follow up. She reports increased bleeding and drainage in left knee. Estuardo came to evaluate today and applied additional gil to site. did have photos that I was able to review- macerated area of incision is noted. Knee appears mildly reddened in the photos. Pressure dressing is in place, I did not remove it. Patient reports that pain is fairly well controlled. She is not overtly SOA, is using I.S. is concerned with possible fluid on lungs- we discussed. Faint Aortic Murmur is appreciated- no prior history of cardiac murmur that they are aware of. We discussed previously abnormal labs, will review today. Chart reviewed for collateral information. Recent bilateral breast implant exchange due to left ruptured saline implant in September (Dr. Daniels). Objective Vital signs: Temperature 98.2 F 02/08/17 08:00 Pulse Rate 89 02/08/17 08:00 Respiratory Rate 16 02/08/17 08:00 Blood Pressure 129/74 02/08/17 08:00 Pulse Oximetry 90 02/08/17 08:00 Height/Weight/BMI: Height 1.65 m Weight 81.3 kg Body Mass Index 28.1 - Constitutional Present: no acute distress, well nourished, well developed, average body habitus , cooperative - Routine HEENT Exam Head: Present: normocephalic, atraumatic Eye: Present: EOMI, PERRL, normal accommodation ENT: Present: mucous membranes moist - Routine Respiratory Exam Present: decreased breath sounds (Bases. ), CTA bilaterally. Absent: dyspnea, rhonchi, wheezes, crackles (I cannot appreciate any crackles. ) - Routine Cardiovascular Exam Present: RRR, S1, S2, murmur (Faint aortic murmur 2/6. ). Absent: S3, S4 - Routine Abdominal Exam Present: soft, normoactive bowel sounds, non distended, non tender - Routine Extremities Exam Present: edema, tenderness, joint swelling (Left knee is wrapped in ALLY. Leg is pink, mildly swollen. Not overtly reddened. Warm, no evidence of neurovascular compromise. ) - Routine Musculoskeletal Exam Musculoskeletal: Present: joint swelling, limited range of motion, other (Photo of surgical incision reviewed. ) - Routine Skin Exam Present: intact, dry, warm - Routine Neurological Exam Present: alert, oriented X3, moving all extremities - Routine Psychiatric Exam Present: normal affect, normal thought process, cooperative, good insight, good judgment Results - Labs CBC & Chem 7: 02/08/17 04:50 02/08/17 04:50 Microbiology Results: Microbiology 02/05/17 18:44 Peripheral/Iv Start Blood Culture - Preliminary No Growth After 2 Days 02/05/17 18:47 Peripheral/Iv Start Blood Culture - Preliminary No Growth After 2 Days 02/04/17 12:45 Knee, Left Intraop Tissue Gram Stain - Final 02/04/17 12:45 Knee, Left Intraop Tissue Surgical Culture - Final Streptococcus pneumoniae 02/04/17 07:49 Synovial Fluid, Left Knee Gram Stain - Final 02/04/17 07:49 Synovial Fluid, Left Knee Body Fluid Culture - Final Streptococcus pneumoniae 02/04/17 12:45 Knee, Left Intraop Tissue Gram Stain - Final 02/04/17 12:45 Knee, Left Intraop Tissue Surgical Culture - Final Streptococcus pneumoniae 02/04/17 12:45 Knee, Lt Intraop Site Gram Stain - Final 02/04/17 12:45 Knee, Lt Intraop Site Surgical Culture - Final Streptococcus pneumoniae - Imaging and Cardiology Chest x-ray Additional comments: PROCEDURE: CHEST 2-VIEWS UPRIGHT (PA & LAT) Encounter: Initial COMPARISON: April 10, 2016 FINDINGS: Blunting of the costophrenic angles on the lateral view consistent with small effusions. Slight obscuration of the left hemidiaphragm could represent an infiltrate. Remaining lung aleman are clear. No pneumothorax. The heart size, mediastinal contours and pulmonary vascularity are within normal limits. There is no significant skeletal abnormality. IMPRESSION: Small pleural effusions with possible left basilar infiltrate Assessment and Plan (1) Prosthetic joint infection Current visit: Yes Status: Suspected Assessment and Plan: IMPRESSION Prosthetic joint infection L knee, s/p I&D with spacer exchange, placement of antibiotic beads 02/04/17, cultures with S. pneumoniae. Iron deficiency anemia - IV iron given on 02/06/17 (iron low at 12, TIBC low at 259, iron sat low at 5%) Leukocytosis with reactive thrombocytosis Hyponatremia (POA) - resolved. RA on plaquenil/MTX HTN GERD Constipation Mild fluid overload Left basilar atelectasis vs infiltrate Mood DO Plan: 02/08/17 Continue Ceftriaxone through 03/17/17. Dr. Hernandez with Follow. Starting Vanco today due to increasing WBC count. Repeat labs, CXR in AM. Encourage I.S. Continue IV iron for full replacement. Likely some degree of bone marrow suppression given chronic immunosuppressive therapy. May need to hold Plaquenil if leukocytosis persists. She follows with Dr. Morrow as outpatient for RA. Faint aortic murmur- monitor. May need OP echo. Will add low dose Lasix and KCl as serum osmo remains low. Should help lower BP. Continue amlodipine. Continue Seroquel for mood stabilization (can also cause bone marrow suppression )- monitor. SCDs for DVT px. Consider adding Lovenox when ok with Ortho. D/W Dr Barbour today. Chart is reviewed during this visit. Medically complex, high risk given infection with immunosuppression. DVT Prophylaxis: SCD's GI Prophylaxis: other (PPI) Resuscitation Status: Full Code Sepsis Assessment - Evaluation Possible source: bone/joint Confirmed Suspected Infection: Yes Hospital Course Summary Disclaimer: The visit summary below is not to be considered part of the above Progress Note. Hospital Course: 02/04/[address] García plans to take the patient to the OR later today for I&D of her left knee. Regarding hyponatremia, she is currently on normal saline. Recheck sodium now. Regarding hypokalemia, will repeat potassium now and may need to replace IV. Will also check magnesium. Repeat CBC with differential and comprehensive metabolic tomorrow. Await culture results. Await crystal analysis of the synovial fluid We'll initiate an anemia workup Hold methotrexate for now 02/05/17 Orthopedic management as per Dr. García, he she did undergo an open synovial bunionectomy of the left knee with irrigation and spacer exchange yesterday. Awaiting culture results, continues on vancomycin Regarding her lower extremity "cramping". Will will check a magnesium on today' s labs. Sodium slightly decreased 133 Continue to encourage patient to work with physical therapy for ongoing strengthening. Biotene ordered for oral moisture as recommended by patient. Continue to monitor blood pressures , currently on Norvasc 5mg MiraLAX and senna plus daily for bowel motivation Will recheck CBC and BMP tomorrow morning to follow the counts, renal function and electrolytes. 02/06/17 Dr. Hernandez evaluated pt today - recommends ceftriaxone 1 gm daily x6 weeks from I &D, through 03/17/17. CXR reviewed - poss left basilar infiltrate & small pleural effusions. D/W Dr. Hernandez - does not recommend additional abx other than ceftriaxone. Cont IS. PICC line ordered - pending placement. BC from yesterday pending; BC from 02/03 NGTD. Hgb with steady decline and low iron levels - give IV iron today; poss DC home tomorrow. Mild hyponatremia - stable at 133. However, with weight gain (10 kg), decreased breath sounds and b/l pleural effusions, will give Lasix 20 mg IV x1. 02/07/17 WBC increased to 12.6 today after being normal x2 days. Last documented fever was 02/05 at 1824. Continue ceftriaxone through 03/17/17. Will adjust timing of infusion - currently at 2000; tonight will give at 1800 and tomorrow will give at 1630, which is the time she plans on coming in daily for infusion. Dr. Hernandez would like a CBC with differential, CMP, sedimentation rate, and C-reactive protein once weekly on Mondays. Please fax to her office at [phone]. She would like to see her in the office in 3 weeks. The patient will need routine PICC line care through the infusion center. She responded well to Lasix yesterday - weight is down x3 kg and breath sounds improved. Continue IS. Hyponatremia has resolved. Hgb low but stable at 8.6; s/p IV iron infusion yesterday. Discharge not safe today with increased WBC. 02/08/17 11:40 02/08/17 Continue Ceftriaxone through 03/17/17. Dr. Hernandez with Follow. Starting Vanco today due to increasing WBC count. Repeat labs, CXR in AM. Encourage I.S. Continue IV iron for full replacement. Likely some degree of bone marrow suppression given chronic immunosuppressive therapy. May need to hold Plaquenil if leukocytosis persists. She follows with Dr. Morrow as outpatient for RA. Faint aortic murmur- monitor. May need OP echo. Will add low dose Lasix and KCl as serum osmo remains low. Should help lower BP. Continue amlodipine. Continue Seroquel for mood stabilization (can also cause bone marrow suppression )- monitor. SCDs for DVT px. Consider adding Lovenox when ok with Ortho. D/W Dr Barbour today. Chart is reviewed during this visit. Medically complex, high risk given infection with immunosuppression. <Johnny Barbour D - Last Filed: 02/08/17 15:47> - Date 02/08/17 Objective Vital signs: Temperature 98.4 F 02/08/17 12:00 Pulse Rate 85 02/08/17 12:00 Respiratory Rate 16 02/08/17 12:00 Blood Pressure 131/73 02/08/17 12:00 Pulse Oximetry 92 02/08/17 12:00 Height/Weight/BMI: Height 1.65 m Weight 81.3 kg Body Mass Index 28.1 Results - Labs CBC & Chem 7: 02/08/17 04:50 02/08/17 04:50 Microbiology Results: Microbiology 02/05/17 18:44 Peripheral/Iv Start Blood Culture - Preliminary No Growth After 2 Days 02/05/17 18:47 Peripheral/Iv Start Blood Culture - Preliminary No Growth After 2 Days 02/04/17 12:45 Knee, Left Intraop Tissue Gram Stain - Final 02/04/17 12:45 Knee, Left Intraop Tissue Surgical Culture - Final Streptococcus pneumoniae 02/04/17 07:49 Synovial Fluid, Left Knee Gram Stain - Final 02/04/17 07:49 Synovial Fluid, Left Knee Body Fluid Culture - Final Streptococcus pneumoniae 02/04/17 12:45 Knee, Left Intraop Tissue Gram Stain - Final 02/04/17 12:45 Knee, Left Intraop Tissue Surgical Culture - Final Streptococcus pneumoniae 02/04/17 12:45 Knee, Lt Intraop Site Gram Stain - Final 02/04/17 12:45 Knee, Lt Intraop Site Surgical Culture - Final Streptococcus pneumoniae Assessment and Plan (1) Prosthetic joint infection Current visit: Yes Status: Suspected Assessment and Plan: IMPRESSION Prosthetic joint infection L knee, s/p I&D with spacer exchange, placement of antibiotic beads 02/04/17, cultures with S. pneumoniae. Iron deficiency anemia - IV iron given on 02/06/17 (iron low at 12, TIBC low at 259, iron sat low at 5%) Leukocytosis with reactive thrombocytosis Hyponatremia (POA) - resolved. RA on plaquenil/MTX HTN GERD Constipation Mild fluid overload Left basilar atelectasis vs infiltrate Mood DO Have independently interviewed and examined pt. Chart reviewed. Case discussed with my [employer] SUPERVISOR. Care plan developed with my supervision; agree with above. Had increased drainage from knee today. Not feeling more pain or discomfort. No f/c. Breathing stable-using IS routinely. Denies cough/congestion. Eating well. Stools moving-no diarrhea. Not having ab pain or discomfort. Lungs: clear bilaterally, no distress on RA. CV: regular AB: soft nt/nd MSE: awake alert appropriate. Thoughts linear. Plan: Vanco added secondary to increasing WBC and drainage-worry patient may need further knee I&D (possible removal of hardware). Continue Rocephin. Will place Plaquenil on hold (MTX on hold). Continue IS for pulmonary toilet. Monitor lab. Case discussed with pt and family. Time spent with patient car 25 minutes. - Time spent with patient Time with patient PN: 25 minutes Hospital Course Summary Disclaimer: The visit summary below is not to be considered part of the above Progress Note.
[2017-02-08] MEDS: FUROSEMIDE 20 MG TABLET PO SCH ×2 (12:29→17:55)
[2017-02-08] MEDS ORDERED: CEFTRIAXONE 1 G in NS 100 ML IV SCH (16:30)
[2017-02-08] MEDS: AMLODIPINE 5 MG TABLET PO SCH (20:14)
[2017-02-08] MEDS: CITALOPRAM 40 MG TABLET PO SCH (20:14)
[2017-02-08] MEDS: FLUTICASONE NASAL SPRAY 50mcg EA NOSTRIL SCH (20:15)
[2017-02-08] MEDS: QUETIAPINE 200 MG TABLET PO SCH (20:15)
[2017-02-08] MEDS: NS FLUSH BAG 500ml IV PRN (22:25)
[2017-02-08] MEDS ORDERED: NS FLUSH BAG 500ml IV PRN (23:16)
[2017-02-08] MEDS: SALINE FLUSH 10ml SYRINGE IV PRN (23:44)
[2017-02-09] MEDS: ACETAMINOPHEN 500 MG TABLET PO PRN ×2 (04:14→15:24)
[2017-02-09] MEDS: NOZIN NASAL SWAB NAS SCH ×4 (05:59→22:22)
[2017-02-09] MEDS: OMEPRAZOLE 20 MG CAPSULE PO SCH (05:59)
--- NOTE | 2017-02-09 08:50 | ID Progress Note ---
Subjective Date: 02/09/17 Subjective: Chart reviewed. She was going to be discharge over the weekend, but she had bleeding noted from her knee yesterday, and purulence was expressed from her incision. Her incision now has erythema noted around it. She denies any fevers or chills, or diarrhea. Had some nausea this morning. Vancomycin was started yesterday. Exam Vital Signs: Temperature 98.4 F 02/09/17 07:17 Pulse Rate 81 02/09/17 07:17 Respiratory Rate 18 02/09/17 07:17 Blood Pressure 156/82 H 02/09/17 07:17 Pulse Oximetry 97 02/09/17 07:17 Height/Weight/BMI: Height 1.65 m Weight 79.8 kg Body Mass Index 28.1 - Constitutional Present: no acute distress, well nourished, well developed - Routine HEENT Exam Head: Present: normocephalic, atraumatic Eye: Present: EOMI ENT: Present: mucous membranes moist - Routine Neck Exam Present: supple - Routine Respiratory Exam Present: CTA bilaterally - Routine Cardiovascular Exam Present: RRR - Routine Abdominal Exam Present: soft, non distended, non tender - Routine Extremities Exam Present: edema (trace around L knee). Absent: cyanosis, clubbing - Routine Skin Exam Absent: rash Comments: L knee incision is intact. There is erythema and warmth noted for 4-5cm around the incision. I don't see any drainage, and I can't express any drainage. Leni in place. RUE PICC line. - Routine Neurological Exam Present: alert, CN II-XII intact. Absent: motor deficit - Routine Psychiatric Exam Present: normal affect, normal thought process Results - Labs CBC & Chem 7: 02/09/17 04:29 02/09/17 04:29 Labs: Laboratory Tests 02/07/17 02/09/17 05:04 04:29 C-Reactive Protein 249.2 H 204.2 H Microbiology Results: Microbiology 02/05/17 18:44 Peripheral/Iv Start Blood Culture - Preliminary No Growth After 3 Days 02/05/17 18:47 Peripheral/Iv Start Blood Culture - Preliminary No Growth After 3 Days 02/04/17 12:45 Knee, Left Intraop Tissue Gram Stain - Final 02/04/17 12:45 Knee, Left Intraop Tissue Surgical Culture - Final Streptococcus pneumoniae sensitive to PCN 02/04/17 07:49 Synovial Fluid, Left Knee Gram Stain - Final 02/04/17 07:49 Synovial Fluid, Left Knee Body Fluid Culture - Final Streptococcus pneumoniae sensitive to PCN 02/04/17 12:45 Knee, Left Intraop Tissue Gram Stain - Final 02/04/17 12:45 Knee, Left Intraop Tissue Surgical Culture - Final Streptococcus pneumoniae sensitive to PCN 02/04/17 12:45 Knee, Lt Intraop Site Gram Stain - Final 02/04/17 12:45 Knee, Lt Intraop Site Surgical Culture - Final Streptococcus pneumoniae sensitive to PCN Impression: Prosthetic joint infection L knee, s/p I&D with spacer exchange, placement of antibiotic beads 02/04/17, cultures with S. pneumoniae. Fever Leukocytosis RA on plaquenil/MTX HTN GERD CXR with possible LLL infiltrate (clinically not hypoxic, not coughing) Recommendation: Continue ceftriaxone alone. I don't think adding Vancomycin is going to add much. Since the S. pneumo is sensitive to PCN, beta-lactams will have more rapid activity than Vancomycin. Discussed with Dr. García. He's considering explanting the hardware.
[2017-02-09] MEDS: CycloSPORINE 0.05% EYE DROPS 4ml EACH EYE SCH (09:57)
[2017-02-09] MEDS: SENNA + DOCUSATE TABLET PO SCH ×2 (09:57→21:09)
[2017-02-09] MEDS: ASPIRIN 81 MG CHEWABLE TABLET PO SCH ×2 (09:58→21:09)
[2017-02-09] MEDS: FUROSEMIDE 20 MG TABLET PO SCH ×2 (09:58→17:40)
[2017-02-09] MEDS: FOLIC ACID 1 MG TABLET PO SCH (09:58)
[2017-02-09] MEDS: POLYETHYL GLYCOL 3350 17gm PACKET PO SCH (10:02)
[2017-02-09] MEDS: CEFTRIAXONE 2 GM in NS 100 ML IV SCH (10:10)
[2017-02-09] MEDS: FERROUS SULFATE 324 MG TABLET PO SCH (10:10)
[2017-02-09] MEDS: ASCORBIC ACID 500 MG TABLET PO SCH (10:10)
--- NOTE | 2017-02-09 10:34 | XRay Report ---
INDICATION: Pleural effusion PROCEDURE: CHEST 2-VIEWS UPRIGHT (PA & LAT) Encounter: Initial COMPARISON: February 06, 2017 FINDINGS: New right PICC line in place with the tip projecting over the expected cavoatrial junction. Small pleural effusions are unchanged. Lungs are otherwise clear. No pneumothorax. Heart size and mediastinal contours are stable. Pulmonary vascularity is normal. Impression: New right PICC line appears appropriately positioned. Stable small pleural effusions. .
--- NOTE | 2017-02-09 11:02 | Progress Note ---
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 She is seen while resting in bed and appears to be down today, emotionally. She denies any current pain or concerns including no chest pain, shortness of breath, abdominal pain, vomiting or dysuria. She does admit to some mild nausea this morning which has since resolved without treatment. Her appetite has been decreased but her bowels are moving. Labs today revealed slight improvement in her leukocytosis at 11.7, persistent stable anemia and worsening thrombocytosis at 560. On 02/08 she was noted to have increased blood and purulent discharge from her left knee incision and was placed on Vancomycin in addition to the Rocephin for additional microbial coverage, though cultures reveal pansensitive strep pneumoniae. She was seen and evaluated by Dr. Hernandez today who discouraged combination of vancomycin and Rocephin as Rocephin should be sufficient for treatment and the vancomycin was discontinued. CRP trending down at 204.2 and blood cultures remain negative after 3 days. Objective Vital signs: Temperature 98.4 F 02/09/17 07:17 Pulse Rate 81 02/09/17 07:17 Respiratory Rate 18 02/09/17 07:17 Blood Pressure 156/82 H 02/09/17 07:17 Pulse Oximetry 97 02/09/17 07:17 Height/Weight/BMI: Height 5 ft 5 in Weight 175 lb 14.862 oz Body Mass Index 28.1 - Constitutional Present: no acute distress, well nourished, well developed, cooperative - Routine HEENT Exam Head: Present: normocephalic, atraumatic Eye: Present: PERRL. Absent: conjunctival icterus ENT: Present: mucous membranes moist Comments: drinking water on exam without complications. - Routine Respiratory Exam Present: CTA bilaterally. Absent: rhonchi, stridor, wheezes - Routine Cardiovascular Exam Present: RRR, S1, S2 - Routine Abdominal Exam Present: soft, normoactive bowel sounds, non tender, distended - Routine Extremities Exam Present: pulses intact Comments: knee brace and bandages noted to left knee and not removed on exam; SCDs noted bilaterally. N/V intact. - Routine Back/Spine/Pelvis Exam Back/Spine: Present: full ROM. Absent: vertebral tenderness - Routine Musculoskeletal Exam Musculoskeletal: Present: moving extremities well, limited range of motion ( left leg) - Routine Skin Exam Present: dry, warm. Absent: jaundice Comments: afebrile; incision to left knee not visualized on exam. - Routine Neurological Exam Present: alert, oriented X3, moving all extremities, hearing grossly intact, normal speech. Absent: facial asymmetry - Routine Lymphatic Exam Lymphatic: Absent: lymphedema - Routine Psychiatric Exam Present: cooperative Comments: depressed mood. Results - Labs CBC & Chem 7: 02/09/17 04:29 02/09/17 04:29 Microbiology Results: Microbiology 02/05/17 18:44 Peripheral/Iv Start Blood Culture - Preliminary No Growth After 3 Days 02/05/17 18:47 Peripheral/Iv Start Blood Culture - Preliminary No Growth After 3 Days 02/04/17 12:45 Knee, Left Intraop Tissue Gram Stain - Final 02/04/17 12:45 Knee, Left Intraop Tissue Surgical Culture - Final Streptococcus pneumoniae 02/04/17 07:49 Synovial Fluid, Left Knee Gram Stain - Final 02/04/17 07:49 Synovial Fluid, Left Knee Body Fluid Culture - Final Streptococcus pneumoniae 02/04/17 12:45 Knee, Left Intraop Tissue Gram Stain - Final 02/04/17 12:45 Knee, Left Intraop Tissue Surgical Culture - Final Streptococcus pneumoniae 02/04/17 12:45 Knee, Lt Intraop Site Gram Stain - Final 02/04/17 12:45 Knee, Lt Intraop Site Surgical Culture - Final Streptococcus pneumoniae Assessment and Plan (1) Prosthetic joint infection Current visit: Yes Status: Suspected Assessment and Plan: IMPRESSION Prosthetic joint infection L knee, s/p I&D with spacer exchange, placement of antibiotic beads 02/04/17, cultures with S. pneumoniae. Iron deficiency anemia - IV iron given on 02/06/17 (iron low at 12, TIBC low at 259, iron sat low at 5%) Leukocytosis with reactive thrombocytosis Hyponatremia (POA) - resolved. RA on plaquenil/MTX HTN GERD Constipation Mild fluid overload Left basilar atelectasis vs infiltrate Mood DO Plan - 02/09/17 (Mirakian). Patient has slightly depressed mood today, understandably. Continue to monitor mood closely given the possibility of another surgery per Dr. García on 02/10. Continue to provide safe and supportive environment. Patient seen and evaluated by Dr. Hernandez who does not recommend continuation of Vancomycin in addition to the Rocephin for coverage of the pansensitive strep pneumoniae. Vancomycin was discontinued. CRP trending down at 204.2. Leukocytosis trending down at 11.7. Patient may warrant additional surgery for I&D and/or hardware removal, possibly scheduled for 02/10 depending on clinical progress. Patient was initially NPO but is now full diet as tolerated. Anticipate NPO at midnight but awaiting surgical decision per Dr. García. Continue pain control and bowel motivation. Blood cultures remain negative after 3 days. Continue to hold Plaquenil and methotrexate. Continue to encourage incentive spirometry for pulmonary toileting. Hypomagnesium noted at 1.4. Will give Mag ox 400mg x 1 dose and recheck in AM. Recheck CBC and BMP in AM to monitor blood counts, electrolytes and renal function. DVT Prophylaxis: SCD's GI Prophylaxis: other (Prilosec) Resuscitation Status: Full Code - Time spent with patient Time with patient PN: 30 minutes Hospital Course Summary Disclaimer: The visit summary below is not to be considered part of the above Progress Note. Hospital Course: 02/04/[address] García plans to take the patient to the OR later today for I&D of her left knee. Regarding hyponatremia, she is currently on normal saline. Recheck sodium now. Regarding hypokalemia, will repeat potassium now and may need to replace IV. Will also check magnesium. Repeat CBC with differential and comprehensive metabolic tomorrow. Await culture results. Await crystal analysis of the synovial fluid We'll initiate an anemia workup Hold methotrexate for now 02/05/17 Orthopedic management as per Dr. García, he she did undergo an open synovial bunionectomy of the left knee with irrigation and spacer exchange yesterday. Awaiting culture results, continues on vancomycin Regarding her lower extremity "cramping". Will will check a magnesium on today' s labs. Sodium slightly decreased 133 Continue to encourage patient to work with physical therapy for ongoing strengthening. Biotene ordered for oral moisture as recommended by patient. Continue to monitor blood pressures , currently on Norvasc 5mg MiraLAX and senna plus daily for bowel motivation Will recheck CBC and BMP tomorrow morning to follow the counts, renal function and electrolytes. 02/06/17 Dr. Hernandez evaluated pt today - recommends ceftriaxone 1 gm daily x6 weeks from I &D, through 03/17/17. CXR reviewed - poss left basilar infiltrate & small pleural effusions. D/W Dr. Hernandez - does not recommend additional abx other than ceftriaxone. Cont IS. PICC line ordered - pending placement. BC from yesterday pending; BC from 02/03 NGTD. Hgb with steady decline and low iron levels - give IV iron today; poss DC home tomorrow. Mild hyponatremia - stable at 133. However, with weight gain (10 kg), decreased breath sounds and b/l pleural effusions, will give Lasix 20 mg IV x1. 02/07/17 WBC increased to 12.6 today after being normal x2 days. Last documented fever was 02/05 at 1824. Continue ceftriaxone through 03/17/17. Will adjust timing of infusion - currently at 2000; tonight will give at 1800 and tomorrow will give at 1630, which is the time she plans on coming in daily for infusion. Dr. Hernandez would like a CBC with differential, CMP, sedimentation rate, and C-reactive protein once weekly on Mondays. Please fax to her office at [phone]. She would like to see her in the office in 3 weeks. The patient will need routine PICC line care through the infusion center. She responded well to Lasix yesterday - weight is down x3 kg and breath sounds improved. Continue IS. Hyponatremia has resolved. Hgb low but stable at 8.6; s/p IV iron infusion yesterday. Discharge not safe today with increased WBC. 02/08/17 11:40 02/08/17 Continue Ceftriaxone through 03/17/17. Dr. Hernandez with Follow. Starting Vanco today due to increasing WBC count. Repeat labs, CXR in AM. Encourage I.S. Continue IV iron for full replacement. Likely some degree of bone marrow suppression given chronic immunosuppressive therapy. May need to hold Plaquenil if leukocytosis persists. She follows with Dr. Morrow as outpatient for RA. Faint aortic murmur- monitor. May need OP echo. Will add low dose Lasix and KCl as serum osmo remains low. Should help lower BP. Continue amlodipine. Continue Seroquel for mood stabilization (can also cause bone marrow suppression )- monitor. SCDs for DVT px. Consider adding Lovenox when ok with Ortho. D/W Dr Barbour today. Chart is reviewed during this visit. Medically complex, high risk given infection with immunosuppression. Plan - 02/09/17 (Mirakian). Patient has slightly depressed mood today, understandably. Continue to monitor mood closely given the possibility of another surgery per Dr. García on 02/10. Continue to provide safe and supportive environment. Patient seen and evaluated by Dr. Hernandez who does not recommend continuation of Vancomycin in addition to the Rocephin for coverage of the pansensitive strep pneumoniae. Vancomycin was discontinued. CRP trending down at 204.2. Leukocytosis trending down at 11.7. Patient may warrant additional surgery for I&D and/or hardware removal, possibly scheduled for 02/10 depending on clinical progress. Patient was initially NPO but is now full diet as tolerated. Anticipate NPO at midnight but awaiting surgical decision per Dr. García. Continue pain control and bowel motivation. Blood cultures remain negative after 3 days. Continue to hold Plaquenil and methotrexate. Continue to encourage incentive spirometry for pulmonary toileting. Hypomagnesium noted at 1.4. Will give Mag ox 400mg x 1 dose and recheck in AM. Recheck CBC and BMP in AM to monitor blood counts, electrolytes and renal function. <Johnny Barbour D - Last Filed: 02/09/17 19:30> - Date 02/09/17 Objective Vital signs: Temperature 97.4 F 02/09/17 15:24 Pulse Rate 86 02/09/17 15:24 Respiratory Rate 16 02/09/17 15:24 Blood Pressure 148/83 H 02/09/17 15:24 Pulse Oximetry 98 02/09/17 15:24 Height/Weight/BMI: Height 1.65 m Weight 79.8 kg Body Mass Index 28.1 Results - Labs CBC & Chem 7: 02/09/17 04:29 02/09/17 04:29 Microbiology Results: Microbiology 02/05/17 18:44 Peripheral/Iv Start Blood Culture - Preliminary No Growth After 4 Days 02/05/17 18:47 Peripheral/Iv Start Blood Culture - Preliminary No Growth After 4 Days 02/09/17 13:05 Aspirate, Left Knee Gram Stain - Final 02/09/17 13:05 Aspirate, Left Knee Body Fluid Culture - Preliminary Culture Initiated - Results Pending 02/04/17 12:45 Knee, Left Intraop Tissue Gram Stain - Final 02/04/17 12:45 Knee, Left Intraop Tissue Surgical Culture - Final Streptococcus pneumoniae 02/04/17 07:49 Synovial Fluid, Left Knee Gram Stain - Final 02/04/17 07:49 Synovial Fluid, Left Knee Body Fluid Culture - Final Streptococcus pneumoniae 02/04/17 12:45 Knee, Left Intraop Tissue Gram Stain - Final 02/04/17 12:45 Knee, Left Intraop Tissue Surgical Culture - Final Streptococcus pneumoniae 02/04/17 12:45 Knee, Lt Intraop Site Gram Stain - Final 02/04/17 12:45 Knee, Lt Intraop Site Surgical Culture - Final Streptococcus pneumoniae Assessment and Plan (1) Prosthetic joint infection Current visit: Yes Status: Suspected Assessment and Plan: IMPRESSION Prosthetic joint infection L knee, s/p I&D with spacer exchange, placement of antibiotic beads 02/04/17, cultures with S. pneumoniae. Iron deficiency anemia - IV iron given on 02/06/17 (iron low at 12, TIBC low at 259, iron sat low at 5%) Leukocytosis with reactive thrombocytosis Hyponatremia (POA) - resolved. RA on plaquenil/MTX HTN GERD Constipation Mild fluid overload Left basilar atelectasis vs infiltrate Mood DO Have independently interviewed & examined pt. Chart reviewed. Case discussed with CM & my PA. Care plan developed with my supervision; agree with above. Doing okay today. Some stiffness/discomfort to knee, but not unbearable pain. No f/c. Breathing well. Eating okay (tired on the same menu). Lungs: clear bilaterally CV: regular MSE: awake alert appropriate Plan: Continue with Rocephin for antimicrobial coverage-Dr Hernandez's input greatly appreciated. Possible surgery in near future-ortho needs to monitor response to antibiotics. Concern that patient will need hardware removal. Replan magnesium. Continue with supportive care. Hospital Course Summary Disclaimer: The visit summary below is not to be considered part of the above Progress Note.
[2017-02-09] MEDS ORDERED: LIDOCAINE 1% (10mg/ml) 2mL INJ PF SDV ID ONE (12:40)
--- NOTE | 2017-02-09 13:02 | Orthopedic Progress Note ---
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 Vanco was stopped and she remains on Rocephin. CRP is improving today. WBC now trending downward. Afeb. No increased pain. Drainage has stopped. Orthopedic Objective PO Vital signs: Temperature 97.8 F 02/09/17 11:00 Pulse Rate 85 02/09/17 11:00 Respiratory Rate 16 02/09/17 11:00 Blood Pressure 146/82 H 02/09/17 11:00 Pulse Oximetry 97 02/09/17 11:00 Height and Weight: Height 5 ft 5 in Weight 175 lb 14.862 oz Body Mass Index 28.1 - Constitutional General Appearance: Present: alert, no acute distress, well nourished - Respiratory Exam Present: non-labored - Cardiovascular Exam Present: pedal pulses intact - Extremities Exam Extremities: Present: pulses intact - Surgical Site Incision: erythema (Mild erythema noted around the mid-incision. Some warmth noted.), other (No further drainage. Skin maceration resolved with controlling the drainage.) - Integumentary Exam Present: erythema - Neurological Exam Present: no deficits - Psychiatric Exam Present: alert - Wound Management Left Knee Wound Type: Surgical Incision - Labs Result Diagrams: 02/09/17 04:29 02/09/17 04:29 Abnormal lab results 02/09/17 02/09/17 Range/Units 04:29 04:29 WBC 11.7 H (4.5-11.0) T/MM3 RBC 2.96 L (4.00-5.20) M/MM3 Hgb 9.0 L (12-16) GM/DL Hct 26.4 L (36-46) % Plt Count 560 H (130-400) T/MM3 MPV 8.6 L (9.4-12.4) UM3 Neutrophils % (Manual) 71.0 H (33-66) % Lymphocytes % (Manual) 13.0 L (23-45) % Monocytes % (Manual) 15.0 H (0-9.0) % Neutrophils # (Manual) 8.3 H (1.8-7.7) T/MM3 Monocytes # (Manual) 1.8 H (0-0.8) T/MM3 Magnesium 1.4 L (1.6-2.3) MG/DL AST 43 H (14-36) U/L Alkaline Phosphatase 209 H (38-126) U/L C-Reactive Protein 204.2 H (0-9) MG/L Albumin 2.9 L (3.5-5.0) G/DL Albumin/Globulin Ratio 0.9 L (1.1-2.2) RATIO H & H 02/04/17 02/05/17 02/06/17 Range/Units 04:34 04:11 04:11 Hgb 9.8 L D 9.2 L 8.6 L (12-16) GM/DL Hct 28.7 L D 27.6 L 25.8 L (36-46) % 02/07/17 02/08/17 02/09/17 Range/Units 05:04 04:50 04:29 Hgb 8.6 L 8.8 L 9.0 L (12-16) GM/DL Hct 25.4 L 26.1 L 26.4 L (36-46) % Orthopedic Assessment and Plan (1) Prosthetic joint infection Status: Suspected Qualifiers: Encounter type: initial encounter Qualified Code(s): T84.50XA - Infection and inflammatory reaction due to unspecified internal joint prosthesis, initial encounter Assessment and Plan: Dr García evaluated her today. Her knee has some warmth and erythema but that could be reactionary from surgery. Drainage from the knee has stopped with placement of gil and the incision looks better today than on Thursday morning. WBC is now trending downward and CRP down to 202 from 249. Pt is afebrile. Repeat aspiration of the knee was performed today and sent to lab. Jeff Avina per Dr Hernandez. Will watch labs and keep an eye on the knee. Consider surgery depending on how things look. If surgery is done, it would be a staged procedure to remove all the implants and place temporary antibiotic implants. Hospital Course Summary Disclaimer: The visit summary below is not to be considered part of the above Progress Note. Hospital Course: 02/04/[address] García plans to take the patient to the OR later today for I&D of her left knee. Regarding hyponatremia, she is currently on normal saline. Recheck sodium now. Regarding hypokalemia, will repeat potassium now and may need to replace IV. Will also check magnesium. Repeat CBC with differential and comprehensive metabolic tomorrow. Await culture results. Await crystal analysis of the synovial fluid We'll initiate an anemia workup Hold methotrexate for now 02/05/17 Orthopedic management as per Dr. García, he she did undergo an open synovial bunionectomy of the left knee with irrigation and spacer exchange yesterday. Awaiting culture results, continues on vancomycin Regarding her lower extremity "cramping". Will will check a magnesium on today' s labs. Sodium slightly decreased 133 Continue to encourage patient to work with physical therapy for ongoing strengthening. Biotene ordered for oral moisture as recommended by patient. Continue to monitor blood pressures , currently on Norvasc 5mg MiraLAX and senna plus daily for bowel motivation Will recheck CBC and BMP tomorrow morning to follow the counts, renal function and electrolytes. 02/06/17 Dr. Hernandez evaluated pt today - recommends ceftriaxone 1 gm daily x6 weeks from I &D, through 03/17/17. CXR reviewed - poss left basilar infiltrate & small pleural effusions. D/W Dr. Hernandez - does not recommend additional abx other than ceftriaxone. Cont IS. PICC line ordered - pending placement. BC from yesterday pending; BC from 02/03 NGTD. Hgb with steady decline and low iron levels - give IV iron today; poss DC home tomorrow. Mild hyponatremia - stable at 133. However, with weight gain (10 kg), decreased breath sounds and b/l pleural effusions, will give Lasix 20 mg IV x1. 02/07/17 WBC increased to 12.6 today after being normal x2 days. Last documented fever was 02/05 at 1824. Continue ceftriaxone through 03/17/17. Will adjust timing of infusion - currently at 2000; tonight will give at 1800 and tomorrow will give at 1630, which is the time she plans on coming in daily for infusion. Dr. Hernandez would like a CBC with differential, CMP, sedimentation rate, and C-reactive protein once weekly on Mondays. Please fax to her office at [phone]. She would like to see her in the office in 3 weeks. The patient will need routine PICC line care through the infusion center. She responded well to Lasix yesterday - weight is down x3 kg and breath sounds improved. Continue IS. Hyponatremia has resolved. Hgb low but stable at 8.6; s/p IV iron infusion yesterday. Discharge not safe today with increased WBC. 02/08/17 11:40 02/08/17 Continue Ceftriaxone through 03/17/17. Dr. Hernandez with Follow. Starting Vanco today due to increasing WBC count. Repeat labs, CXR in AM. Encourage I.S. Continue IV iron for full replacement. Likely some degree of bone marrow suppression given chronic immunosuppressive therapy. May need to hold Plaquenil if leukocytosis persists. She follows with Dr. Morrow as outpatient for RA. Faint aortic murmur- monitor. May need OP echo. Will add low dose Lasix and KCl as serum osmo remains low. Should help lower BP. Continue amlodipine. Continue Seroquel for mood stabilization (can also cause bone marrow suppression )- monitor. SCDs for DVT px. Consider adding Lovenox when ok with Ortho. D/W Dr Barbour today. Chart is reviewed during this visit. Medically complex, high risk given infection with immunosuppression. Plan - 02/09/17 (Mirakian). Patient has slightly depressed mood today, understandably. Continue to monitor mood closely given the possibility of another surgery per Dr. García on 02/10. Continue to provide safe and supportive environment. Patient seen and evaluated by Dr. Hernandez who does not recommend continuation of Vancomycin in addition to the Rocephin for coverage of the pansensitive strep pneumoniae. Vancomycin was discontinued. CRP trending down at 204.2. Leukocytosis trending down at 11.7. Patient may warrant additional surgery for I&D and/or hardware removal, possibly scheduled for 02/10 depending on clinical progress. Patient was initially NPO but is now full diet as tolerated. Anticipate NPO at midnight but awaiting surgical decision per Dr. García. Continue pain control and bowel motivation. Blood cultures remain negative after 3 days. Continue to hold Plaquenil and methotrexate. Continue to encourage incentive spirometry for pulmonary toileting. Hypomagnesium noted at 1.4. Will give Mag ox 400mg x 1 dose and recheck in AM. Recheck CBC and BMP in AM to monitor blood counts, electrolytes and renal function.
[2017-02-09] MEDS ORDERED: MAGNESIUM OXIDE 400 MG TABLET PO SCH (17:30)
[2017-02-09] MEDS: SALINE FLUSH 10ml SYRINGE IV PRN (21:08)
[2017-02-09] MEDS: FLUTICASONE NASAL SPRAY 50mcg EA NOSTRIL SCH (21:08)
[2017-02-09] MEDS: QUETIAPINE 200 MG TABLET PO SCH (21:09)
[2017-02-09] MEDS: CITALOPRAM 40 MG TABLET PO SCH (21:09)
[2017-02-09] MEDS: HYDROCODONE/APAP 7.5 MG/325 MG TABLET PO PRN (21:09)
[2017-02-09] MEDS: AMLODIPINE 5 MG TABLET PO SCH (21:09)
[2017-02-10] MEDS: ACETAMINOPHEN 500 MG TABLET PO PRN (04:08)
[2017-02-10] MEDS: NOZIN NASAL SWAB NAS SCH (05:33)
[2017-02-10] MEDS: OMEPRAZOLE 20 MG CAPSULE PO SCH (05:34)
[2017-02-10 07:29] VITALS: RESP 18; O2SAT 97
--- NOTE | 2017-02-10 07:46 | Orthopedic Progress Note ---
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 She remains on Rocephin. CRP is improving today, 136.6. WBC now12.3, afebrile. No increased pain. Drainage has stopped. Aspirate of her knee from 02/09/17 shows no growth so far. Orthopedic Objective PO Vital signs: Temperature 97.8 F 02/10/17 07:28 Pulse Rate 86 02/10/17 07:28 Respiratory Rate 18 02/10/17 07:28 Blood Pressure 156/79 H 02/10/17 07:28 Pulse Oximetry 97 02/10/17 07:28 Height and Weight: Height 5 ft 5 in Weight 175 lb 14.862 oz Body Mass Index 28.1 - Constitutional General Appearance: Present: alert, no acute distress, well nourished - Respiratory Exam Present: non-labored - Cardiovascular Exam Present: pedal pulses intact - Extremities Exam Extremities: Present: pulses intact - Knee Exam Knee Exam: Present: effusion Comments: incision is well approximated, sutures is place, no drainage on dressing. This is my first day seeing the incision post op, but does not appear to have a large amount of erythema. - Surgical Site Incision: erythema (Mild erythema noted around the mid-incision. Some warmth noted.), other (No further drainage. Skin maceration resolved with controlling the drainage.) - Integumentary Exam Present: erythema - Lymphatic Lymphatic: Absent: lymphedema - Neurological Exam Present: no deficits - Psychiatric Exam Present: alert - Wound Management Left Knee Wound Type: Surgical Incision - Labs Result Diagrams: 02/10/17 04:03 02/10/17 04:03 Abnormal lab results 02/10/17 02/10/17 Range/Units 04:03 04:03 WBC 12.3 H (4.5-11.0) T/MM3 RBC 3.16 L (4.00-5.20) M/MM3 Hgb 9.5 L (12-16) GM/DL Hct 28.5 L (36-46) % Plt Count 624 H (130-400) T/MM3 MPV 8.6 L (9.4-12.4) UM3 Neutrophils % (Manual) 78.0 H (33-66) % Lymphocytes % (Manual) 10.0 L (23-45) % Neutrophils # (Manual) 9.6 H (1.8-7.7) T/MM3 Monocytes # (Manual) 1.0 H (0-0.8) T/MM3 Potassium 3.2 L (3.6-5) MEQ/L Chloride 97 L (98-107) MEQ/L Magnesium 1.5 L (1.6-2.3) MG/DL C-Reactive Protein 136.6 H (0-9) MG/L H & H 02/04/17 02/05/17 02/06/17 Range/Units 04:34 04:11 04:11 Hgb 9.8 L D 9.2 L 8.6 L (12-16) GM/DL Hct 28.7 L D 27.6 L 25.8 L (36-46) % 02/07/17 02/08/17 02/09/17 Range/Units 05:04 04:50 04:29 Hgb 8.6 L 8.8 L 9.0 L (12-16) GM/DL Hct 25.4 L 26.1 L 26.4 L (36-46) % 02/10/17 Range/Units 04:03 Hgb 9.5 L (12-16) GM/DL Hct 28.5 L (36-46) % Orthopedic Assessment and Plan (1) Prosthetic joint infection Status: Suspected Qualifiers: Encounter type: initial encounter Qualified Code(s): T84.50XA - Infection and inflammatory reaction due to unspecified internal joint prosthesis, initial encounter Assessment and Plan: Her knee has some warmth and erythema but that could be reactionary from surgery. Drainage from the knee has stopped with placement of gil. WBC is now 12.3,CRP down to 136.6. Pt is afebrile. Cont Rocephin per Dr Hernandez. Will watch labs and keep an eye on the knee. Consider surgery depending on how things look. If surgery is done, it would be a staged procedure to remove all the implants and place temporary antibiotic implants. - Anticoagulation Therapy Anticoagulation: other Hospital Course Summary Disclaimer: The visit summary below is not to be considered part of the above Progress Note. Hospital Course: 02/04/[address] García plans to take the patient to the OR later today for I&D of her left knee. Regarding hyponatremia, she is currently on normal saline. Recheck sodium now. Regarding hypokalemia, will repeat potassium now and may need to replace IV. Will also check magnesium. Repeat CBC with differential and comprehensive metabolic tomorrow. Await culture results. Await crystal analysis of the synovial fluid We'll initiate an anemia workup Hold methotrexate for now 02/05/17 Orthopedic management as per Dr. García, he she did undergo an open synovial bunionectomy of the left knee with irrigation and spacer exchange yesterday. Awaiting culture results, continues on vancomycin Regarding her lower extremity "cramping". Will will check a magnesium on today' s labs. Sodium slightly decreased 133 Continue to encourage patient to work with physical therapy for ongoing strengthening. Biotene ordered for oral moisture as recommended by patient. Continue to monitor blood pressures , currently on Norvasc 5mg MiraLAX and senna plus daily for bowel motivation Will recheck CBC and BMP tomorrow morning to follow the counts, renal function and electrolytes. 02/06/17 Dr. Hernandez evaluated pt today - recommends ceftriaxone 1 gm daily x6 weeks from I &D, through 03/17/17. CXR reviewed - poss left basilar infiltrate & small pleural effusions. D/W Dr. Hernandez - does not recommend additional abx other than ceftriaxone. Cont IS. PICC line ordered - pending placement. BC from yesterday pending; BC from 02/03 NGTD. Hgb with steady decline and low iron levels - give IV iron today; poss DC home tomorrow. Mild hyponatremia - stable at 133. However, with weight gain (10 kg), decreased breath sounds and b/l pleural effusions, will give Lasix 20 mg IV x1. 02/07/17 WBC increased to 12.6 today after being normal x2 days. Last documented fever was 02/05 at 1824. Continue ceftriaxone through 03/17/17. Will adjust timing of infusion - currently at 2000; tonight will give at 1800 and tomorrow will give at 1630, which is the time she plans on coming in daily for infusion. Dr. Hernandez would like a CBC with differential, CMP, sedimentation rate, and C-reactive protein once weekly on Mondays. Please fax to her office at [phone]. She would like to see her in the office in 3 weeks. The patient will need routine PICC line care through the infusion center. She responded well to Lasix yesterday - weight is down x3 kg and breath sounds improved. Continue IS. Hyponatremia has resolved. Hgb low but stable at 8.6; s/p IV iron infusion yesterday. Discharge not safe today with increased WBC. 02/08/17 11:40 02/08/17 Continue Ceftriaxone through 03/17/17. Dr. Hernandez with Follow. Starting Vanco today due to increasing WBC count. Repeat labs, CXR in AM. Encourage I.S. Continue IV iron for full replacement. Likely some degree of bone marrow suppression given chronic immunosuppressive therapy. May need to hold Plaquenil if leukocytosis persists. She follows with Dr. Morrow as outpatient for RA. Faint aortic murmur- monitor. May need OP echo. Will add low dose Lasix and KCl as serum osmo remains low. Should help lower BP. Continue amlodipine. Continue Seroquel for mood stabilization (can also cause bone marrow suppression )- monitor. SCDs for DVT px. Consider adding Lovenox when ok with Ortho. D/W Dr Barbour today. Chart is reviewed during this visit. Medically complex, high risk given infection with immunosuppression. Plan - 02/09/17 (Mirakian). Patient has slightly depressed mood today, understandably. Continue to monitor mood closely given the possibility of another surgery per Dr. García on 02/10. Continue to provide safe and supportive environment. Patient seen and evaluated by Dr. Hernandez who does not recommend continuation of Vancomycin in addition to the Rocephin for coverage of the pansensitive strep pneumoniae. Vancomycin was discontinued. CRP trending down at 204.2. Leukocytosis trending down at 11.7. Patient may warrant additional surgery for I&D and/or hardware removal, possibly scheduled for 02/10 depending on clinical progress. Patient was initially NPO but is now full diet as tolerated. Anticipate NPO at midnight but awaiting surgical decision per Dr. García. Continue pain control and bowel motivation. Blood cultures remain negative after 3 days. Continue to hold Plaquenil and methotrexate. Continue to encourage incentive spirometry for pulmonary toileting. Hypomagnesium noted at 1.4. Will give Mag ox 400mg x 1 dose and recheck in AM. Recheck CBC and BMP in AM to monitor blood counts, electrolytes and renal function.
[2017-02-10] MEDS: POLYETHYL GLYCOL 3350 17gm PACKET PO SCH ×2 (09:12→09:26)
[2017-02-10] MEDS: CycloSPORINE 0.05% EYE DROPS 4ml EACH EYE SCH (09:13)
[2017-02-10] MEDS: ASCORBIC ACID 500 MG TABLET PO SCH (09:14)
[2017-02-10] MEDS: FUROSEMIDE 20 MG TABLET PO SCH (09:14)
[2017-02-10] MEDS: FOLIC ACID 1 MG TABLET PO SCH (09:14)
[2017-02-10] MEDS: SENNA + DOCUSATE TABLET PO SCH (09:14)
[2017-02-10] MEDS: FERROUS SULFATE 324 MG TABLET PO SCH (09:14)
[2017-02-10] MEDS: SALINE FLUSH 10ml SYRINGE IV PRN (09:15)
[2017-02-10] MEDS: CEFTRIAXONE 2 GM in NS 100 ML IV SCH (09:15)
[2017-02-10] MEDS: ASPIRIN 81 MG CHEWABLE TABLET PO SCH (09:27)
--- NOTE | 2017-02-10 09:33 | Progress Note ---
<Laurie Manning - Last Filed: 02/10/17 09:27> - Date 02/10/17 Subjective: Nona is seen today in follow up for her infected prosthetic left knee. She is seen while resting in bed with nursing at the bedside. She reports that she is feeling ok, but appears to be feeling better as compared to yesterday. She states that her pain is well controlled, currently 3/10, but does increase with movement of her knee. She denies any new complaints including no chest pain, shortness of breath, abdominal pain, nausea, vomiting or dysuria. Her appetite is better today and her bowels are moving. Repeat labs were reviewed and indicate a slight increase in leukocytosis at 12.3, up from 11.7. Anemia is stable with hemoglobin at 9.5 and increased platelets at 624. BMP revealed new hypokalemia with potassium at 3.2 and slight improvement in hypomagnesium at 1.5. CRP continues to trend down at 136.0. She remains on Rocephin per Dr. Hernandez' recommendations. Aspirate from the knee was obtained yesterday and does not show any growth as yet. She remains afebrile without noted drainage. Patient has taken pictures of her knee throughout the process and images reveal improvement today with decreased erythema and swelling. Depending on her progress today, she may require surgery to remove the implants and replace them with antibiotic implants on 02/12. Objective Vital signs: Temperature 97.8 F 02/10/17 07:28 Pulse Rate 86 02/10/17 07:28 Respiratory Rate 18 02/10/17 07:28 Blood Pressure 156/79 H 02/10/17 07:28 Pulse Oximetry 97 02/10/17 07:28 Height/Weight/BMI: Height 5 ft 5 in Weight 175 lb 14.862 oz Body Mass Index 28.1 - Constitutional Present: no acute distress, well nourished, well developed, cooperative - Routine HEENT Exam Head: Present: normocephalic, atraumatic Eye: Present: PERRL. Absent: conjunctival icterus ENT: Present: mucous membranes moist, dentition normal - Routine Respiratory Exam Present: CTA bilaterally. Absent: rhonchi, stridor, wheezes, crackles - Routine Cardiovascular Exam Present: RRR, S1, S2 - Routine Abdominal Exam Present: soft, normoactive bowel sounds, non distended, non tender - Routine Extremities Exam Present: no edema, pulses intact, normal capillary refill Comments: knee brace and ice pack noted to left knee. - Routine Back/Spine/Pelvis Exam Back/Spine: Present: full ROM. Absent: vertebral tenderness - Routine Musculoskeletal Exam Musculoskeletal: Present: no clubbing or cyanosis, moving extremities well, limited range of motion (left knee) - Routine Skin Exam Present: intact, dry, warm. Absent: jaundice Comments: afebrile; no discharge or bleeding from surgical incision on left knee; improving erythema to left knee. - Routine Neurological Exam Present: alert, oriented X3, moving all extremities, normal speech. Absent: facial asymmetry - Routine Lymphatic Exam Lymphatic: Absent: lymphedema - Routine Psychiatric Exam Present: normal affect, cooperative, good insight, good judgment Results - Labs CBC & Chem 7: 02/10/17 04:03 02/10/17 04:03 Microbiology Results: Microbiology 02/05/17 18:44 Peripheral/Iv Start Blood Culture - Preliminary No Growth After 4 Days 02/05/17 18:47 Peripheral/Iv Start Blood Culture - Preliminary No Growth After 4 Days 02/09/17 13:05 Aspirate, Left Knee Gram Stain - Final 02/09/17 13:05 Aspirate, Left Knee Body Fluid Culture - Preliminary Culture Initiated - Results Pending 02/04/17 12:45 Knee, Left Intraop Tissue Gram Stain - Final 02/04/17 12:45 Knee, Left Intraop Tissue Surgical Culture - Final Streptococcus pneumoniae 02/04/17 07:49 Synovial Fluid, Left Knee Gram Stain - Final 02/04/17 07:49 Synovial Fluid, Left Knee Body Fluid Culture - Final Streptococcus pneumoniae 02/04/17 12:45 Knee, Left Intraop Tissue Gram Stain - Final 02/04/17 12:45 Knee, Left Intraop Tissue Surgical Culture - Final Streptococcus pneumoniae 02/04/17 12:45 Knee, Lt Intraop Site Gram Stain - Final 02/04/17 12:45 Knee, Lt Intraop Site Surgical Culture - Final Streptococcus pneumoniae Assessment and Plan (1) Prosthetic joint infection Status: Suspected Assessment and Plan: IMPRESSION Prosthetic joint infection L knee, s/p I&D with spacer exchange, placement of antibiotic beads 02/04/17, cultures with S. pneumoniae. Iron deficiency anemia - IV iron given on 02/06/17 (iron low at 12, TIBC low at 259, iron sat low at 5%) Leukocytosis with reactive thrombocytosis Hyponatremia (POA) - resolved. RA on plaquenil/MTX HTN GERD Constipation Mild fluid overload Left basilar atelectasis vs infiltrate Mood DO Plan - 02/10/17: Overall, Nona appears to be making slow gains. Continue on Rocephin for pansensitive strep pneumoniae per Dr. Hernandez' recommendations. Appreciate her time and expertise. Aspirate obtained from left knee on 02/09/17 with results pending and no current growth. Possible surgery in near future, possibly 02/12. Will be determined by ortho based on response to antibiotics. Clinic exam reveals improving erythema and swelling with resolution of discharge. Concern that patient will need to have hardware removed. Appreciate Dr. García's time and expertise. CRP continues to trend down at 136.6. Slight increase in leukocytosis at 12.3. Will continue to monitor trends. Blood cultures remain negative after 4 days. Hypomagnesium slightly improved at 1.5. Will given an additional 400mg MagOx now and continue to monitor. Anemia stable - hemoglobin 9.5. Increased thrombocytosis with platelets at 624. Continue to monitor. New hypokalemia noted with potassium at 3.2. Will give KCl 40 mEq po now and recheck in AM. Continue to provide safe and supportive environment. Continue to encourage incentive spirometry for pulmonary toileting. DVT Prophylaxis: SCD's Resuscitation Status: Full Code - Time spent with patient Time with patient PN: 35 minutes Hospital Course Summary Disclaimer: The visit summary below is not to be considered part of the above Progress Note. Hospital Course: 02/04/[address] García plans to take the patient to the OR later today for I&D of her left knee. Regarding hyponatremia, she is currently on normal saline. Recheck sodium now. Regarding hypokalemia, will repeat potassium now and may need to replace IV. Will also check magnesium. Repeat CBC with differential and comprehensive metabolic tomorrow. Await culture results. Await crystal analysis of the synovial fluid We'll initiate an anemia workup Hold methotrexate for now 02/05/17 Orthopedic management as per Dr. García, he she did undergo an open synovial bunionectomy of the left knee with irrigation and spacer exchange yesterday. Awaiting culture results, continues on vancomycin Regarding her lower extremity "cramping". Will will check a magnesium on today' s labs. Sodium slightly decreased 133 Continue to encourage patient to work with physical therapy for ongoing strengthening. Biotene ordered for oral moisture as recommended by patient. Continue to monitor blood pressures , currently on Norvasc 5mg MiraLAX and senna plus daily for bowel motivation Will recheck CBC and BMP tomorrow morning to follow the counts, renal function and electrolytes. 02/06/17 Dr. Hernandez evaluated pt today - recommends ceftriaxone 1 gm daily x6 weeks from I &D, through 03/17/17. CXR reviewed - poss left basilar infiltrate & small pleural effusions. D/W Dr. Hernandez - does not recommend additional abx other than ceftriaxone. Cont IS. PICC line ordered - pending placement. BC from yesterday pending; BC from 02/03 NGTD. Hgb with steady decline and low iron levels - give IV iron today; poss DC home tomorrow. Mild hyponatremia - stable at 133. However, with weight gain (10 kg), decreased breath sounds and b/l pleural effusions, will give Lasix 20 mg IV x1. 02/07/17 WBC increased to 12.6 today after being normal x2 days. Last documented fever was 02/05 at 1824. Continue ceftriaxone through 03/17/17. Will adjust timing of infusion - currently at 2000; tonight will give at 1800 and tomorrow will give at 1630, which is the time she plans on coming in daily for infusion. Dr. Hernandez would like a CBC with differential, CMP, sedimentation rate, and C-reactive protein once weekly on Mondays. Please fax to her office at [phone]. She would like to see her in the office in 3 weeks. The patient will need routine PICC line care through the infusion center. She responded well to Lasix yesterday - weight is down x3 kg and breath sounds improved. Continue IS. Hyponatremia has resolved. Hgb low but stable at 8.6; s/p IV iron infusion yesterday. Discharge not safe today with increased WBC. 02/08/17 11:40 02/08/17 Continue Ceftriaxone through 03/17/17. Dr. Hernandez with Follow. Starting Vanco today due to increasing WBC count. Repeat labs, CXR in AM. Encourage I.S. Continue IV iron for full replacement. Likely some degree of bone marrow suppression given chronic immunosuppressive therapy. May need to hold Plaquenil if leukocytosis persists. She follows with Dr. Morrow as outpatient for RA. Faint aortic murmur- monitor. May need OP echo. Will add low dose Lasix and KCl as serum osmo remains low. Should help lower BP. Continue amlodipine. Continue Seroquel for mood stabilization (can also cause bone marrow suppression )- monitor. SCDs for DVT px. Consider adding Lovenox when ok with Ortho. D/W Dr Barbour today. Chart is reviewed during this visit. Medically complex, high risk given infection with immunosuppression. Plan - 02/09/17 (Mirakian). Patient has slightly depressed mood today, understandably. Continue to monitor mood closely given the possibility of another surgery per Dr. García on 02/10. Continue to provide safe and supportive environment. Patient seen and evaluated by Dr. Hernandez who does not recommend continuation of Vancomycin in addition to the Rocephin for coverage of the pansensitive strep pneumoniae. Vancomycin was discontinued. CRP trending down at 204.2. Leukocytosis trending down at 11.7. Patient may warrant additional surgery for I&D and/or hardware removal, possibly scheduled for 02/10 depending on clinical progress. Patient was initially NPO but is now full diet as tolerated. Anticipate NPO at midnight but awaiting surgical decision per Dr. García. Continue pain control and bowel motivation. Blood cultures remain negative after 3 days. Continue to hold Plaquenil and methotrexate. Continue to encourage incentive spirometry for pulmonary toileting. Hypomagnesium noted at 1.4. Will give Mag ox 400mg x 1 dose and recheck in AM. Recheck CBC and BMP in AM to monitor blood counts, electrolytes and renal function. Plan - 02/10/17: Overall, Nona appears to be making slow gains. Continue on Rocephin for pansensitive strep pneumoniae per Dr. Hernandez' recommendations. Appreciate her time and expertise. Aspirate obtained from left knee on 02/09/17 with results pending and no current growth. Possible surgery in near future, possibly 02/12. Will be determined by ortho based on response to antibiotics. Clinic exam reveals improving erythema and swelling with resolution of discharge. Concern that patient will need to have hardware removed. Appreciate Dr. García's time and expertise. CRP continues to trend down at 136.6. Slight increase in leukocytosis at 12.3. Will continue to monitor trends. Blood cultures remain negative after 4 days. Hypomagnesium slightly improved at 1.5. Will given an additional 400mg MagOx now and continue to monitor. Anemia stable - hemoglobin 9.5. Increased thrombocytosis with platelets at 624. Continue to monitor. New hypokalemia noted with potassium at 3.2. Will give KCl 40 mEq po now and recheck in AM. Continue to provide safe and supportive environment. Continue to encourage incentive spirometry for pulmonary toileting. <Johnny Barbour D - Last Filed: 02/10/17 17:10> - Date 02/10/17 Objective Vital signs: Temperature 98.2 F 02/10/17 11:48 Pulse Rate 85 02/10/17 11:48 Respiratory Rate 18 02/10/17 11:48 Blood Pressure 138/82 02/10/17 11:48 Pulse Oximetry 97 02/10/17 11:48 Height/Weight/BMI: Height 1.65 m Weight 76.1 kg Body Mass Index 28.1 Results - Labs CBC & Chem 7: 02/10/17 04:03 02/10/17 04:03 Microbiology Results: Microbiology 02/09/17 13:05 Aspirate, Left Knee Gram Stain - Final 02/09/17 13:05 Aspirate, Left Knee Body Fluid Culture - Preliminary No Growth After 1 Day 02/05/17 18:44 Peripheral/Iv Start Blood Culture - Preliminary No Growth After 4 Days 02/05/17 18:47 Peripheral/Iv Start Blood Culture - Preliminary No Growth After 4 Days 02/04/17 12:45 Knee, Left Intraop Tissue Gram Stain - Final 02/04/17 12:45 Knee, Left Intraop Tissue Surgical Culture - Final Streptococcus pneumoniae 02/04/17 07:49 Synovial Fluid, Left Knee Gram Stain - Final 02/04/17 07:49 Synovial Fluid, Left Knee Body Fluid Culture - Final Streptococcus pneumoniae 02/04/17 12:45 Knee, Left Intraop Tissue Gram Stain - Final 02/04/17 12:45 Knee, Left Intraop Tissue Surgical Culture - Final Streptococcus pneumoniae 02/04/17 12:45 Knee, Lt Intraop Site Gram Stain - Final 02/04/17 12:45 Knee, Lt Intraop Site Surgical Culture - Final Streptococcus pneumoniae Assessment and Plan (1) Prosthetic joint infection Status: Acute Assessment and Plan: IMPRESSION Prosthetic joint infection L knee, s/p I&D with spacer exchange, placement of antibiotic beads 02/04/17, cultures with S. pneumoniae. Iron deficiency anemia - IV iron given on 02/06/17 (iron low at 12, TIBC low at 259, iron sat low at 5%) Leukocytosis with reactive thrombocytosis Hyponatremia (POA) - resolved. RA on plaquenil/MTX HTN GERD Constipation Mild fluid overload Left basilar atelectasis vs infiltrate Mood DO Have independently interviewed & examined pt. Chart reviewed. Case discussed with CM & my PA. Care plan developed with my supervision; agree with above. Doing well today. Minimal pain to knee. No f/c. Breathing well. Eating well. Dr García does feel patient doing well enough for discharge to home today. Lungs: clear CV: regular MSE: awake alert appropriate Plan: Will discharge to home. Continue Rocephin in infusion therapy. Continue pain control. Patient understands that there is still risk she may need the prosthetic knee removed despite treatments. Is hoping for the best. Hospital Course Summary Disclaimer: The visit summary below is not to be considered part of the above Progress Note.
[2017-02-10 11:49] VITALS: BP 138/82; PULSE 85; TEMP 98.2
--- NOTE | 2017-02-10 14:31 | Discharge Summary ---
<Laurie Manning - Last Filed: 02/10/17 14:28> Discharge Information Date of admission: 02/03/17 23:56 Anticipated date of discharge: 02/10/17 Attending Physician: Johnny Barbour MD Primary care physician: Zaid Moraes II, MD Consults: Alise Hernandez - Infectious disease. Henry García - Orthopedic surgery. PT/OT. - Discharge Diagnosis (1) Prosthetic joint infection Status: Acute Prosthetic joint infection L knee, s/p I&D with spacer exchange, placement of antibiotic beads 02/04/17, cultures with S. pneumoniae. Iron deficiency anemia - IV iron given on 02/06/17 (iron low at 12, TIBC low at 259, iron sat low at 5%). Leukocytosis with reactive thrombocytosis. Anemia Hyponatremia - resolved. Hypokalemia. Rheumatoid arthritis on plaquenil and methotrexate. Hypertension. GERD. Constipation. Mood disorder. - Procedures Procedures: 02/04/17: Open complete synovectomy of left knee with irrigation and spacer exchange with placement of antiobitic beads - Dr. García. - Laboratory Labs: 02/10/17 04:03 02/10/17 04:03 - Microbiology Microbiology 02/09/17 13:05 Aspirate, Left Knee Gram Stain - Final 02/09/17 13:05 Aspirate, Left Knee Body Fluid Culture - Preliminary No Growth After 1 Day 02/05/17 18:44 Peripheral/Iv Start Blood Culture - Preliminary No Growth After 4 Days 02/05/17 18:47 Peripheral/Iv Start Blood Culture - Preliminary No Growth After 4 Days 02/04/17 12:45 Knee, Left Intraop Tissue Gram Stain - Final 02/04/17 12:45 Knee, Left Intraop Tissue Surgical Culture - Final Streptococcus pneumoniae 02/04/17 07:49 Synovial Fluid, Left Knee Gram Stain - Final 02/04/17 07:49 Synovial Fluid, Left Knee Body Fluid Culture - Final Streptococcus pneumoniae 02/04/17 12:45 Knee, Left Intraop Tissue Gram Stain - Final 02/04/17 12:45 Knee, Left Intraop Tissue Surgical Culture - Final Streptococcus pneumoniae 02/04/17 12:45 Knee, Lt Intraop Site Gram Stain - Final 02/04/17 12:45 Knee, Lt Intraop Site Surgical Culture - Final Streptococcus pneumoniae - Radiology Radiology: Date of Exam: 02/09/17 Type of Exam(s): XR chest 2V Impression: New right PICC line appears appropriately positioned. Stable small pleural effusions. Date of Exam: 02/06/17 Type of Exam(s): XR chest 2V IMPRESSION: Small pleural effusions with possible left basilar infiltrate History of Present Illness HPI: Patient is a very pleasant 66-year-old female with history of rheumatoid arthritis who is on methotrexate. She had a total knee replacement in March 2016. She had been in her normal state of health until February 01 when she developed lightning bolt-like pains in her left jaw up into her left temporal area. The pain came and went quickly but was fairly severe and she went to the emergency room. She was also having nausea, vomiting and diarrhea. She had a CT head that showed no significant abnormalities. C-reactive protein was mildly elevated at 21.3. Other lab was essentially normal. Pain improved with pain medication and she went home. She was still feeling nauseated the following day but that resolved. She then developed cramps in her left leg below -the-knee and denied any known injury. On 02/03/2017 she had worsening knee pain and presented to [facility] emergency department for evaluation. Plain films were obtained and were unremarkable. Labs demonstrated leukocytosis with WBC at 15.6 and an elevated CRP at 231. Due to concern for septic joint, Dr. García was contacted and recommended admission to the hospitalist service with orthopedic consult. Objective Vital signs: Temperature 98.2 F 02/10/17 11:48 Pulse Rate 85 02/10/17 11:48 Respiratory Rate 18 02/10/17 11:48 Blood Pressure 138/82 02/10/17 11:48 Pulse Oximetry 97 02/10/17 11:48 Height/Weight/BMI: Height 5 ft 5 in Weight 167 lb 12.348 oz Body Mass Index 28.1 - Constitutional Present: no acute distress, well nourished, well developed, cooperative - Routine HEENT Exam Head: Present: normocephalic, atraumatic Eye: Present: PERRL. Absent: conjunctival icterus ENT: Present: mucous membranes moist - Routine Respiratory Exam Present: CTA bilaterally. Absent: rhonchi, stridor, wheezes, crackles - Routine Cardiovascular Exam Present: RRR, S1, S2 - Routine Abdominal Exam Present: soft, normoactive bowel sounds, non distended, non tender - Routine Extremities Exam Present: pulses intact Comments: limited ROM to left knee due to pain and brace present. - Routine Back/Spine/Pelvis Exam Back/Spine: Present: full ROM - Routine Musculoskeletal Exam Musculoskeletal: Present: moving extremities well, limited range of motion ( left knee.) - Routine Skin Exam Present: dry, warm. Absent: jaundice Comments: afebrile. - Routine Neurological Exam Present: alert, oriented X3, moving all extremities, normal speech - Routine Lymphatic Exam Lymphatic: Absent: lymphedema - Routine Psychiatric Exam Present: cooperative Hospital Course This is a general summary of the patient's hospital course. For more details refer to the complete medical record. Hospital course: 02/04/[address] García plans to take the patient to the OR later today for I&D of her left knee. Regarding hyponatremia, she is currently on normal saline. Recheck sodium now. Regarding hypokalemia, will repeat potassium now and may need to replace IV. Will also check magnesium. Repeat CBC with differential and comprehensive metabolic tomorrow. Await culture results. Await crystal analysis of the synovial fluid We'll initiate an anemia workup Hold methotrexate for now 02/05/17 Orthopedic management as per Dr. García, he she did undergo an open synovial bunionectomy of the left knee with irrigation and spacer exchange yesterday. Awaiting culture results, continues on vancomycin Regarding her lower extremity "cramping". Will will check a magnesium on today' s labs. Sodium slightly decreased 133 Continue to encourage patient to work with physical therapy for ongoing strengthening. Biotene ordered for oral moisture as recommended by patient. Continue to monitor blood pressures , currently on Norvasc 5mg MiraLAX and senna plus daily for bowel motivation Will recheck CBC and BMP tomorrow morning to follow the counts, renal function and electrolytes. 02/06/17 Dr. Hernandez evaluated pt today - recommends ceftriaxone 1 gm daily x6 weeks from I &D, through 03/17/17. CXR reviewed - poss left basilar infiltrate & small pleural effusions. D/W Dr. Hernandez - does not recommend additional abx other than ceftriaxone. Cont IS. PICC line ordered - pending placement. BC from yesterday pending; BC from 02/03 NGTD. Hgb with steady decline and low iron levels - give IV iron today; poss DC home tomorrow. Mild hyponatremia - stable at 133. However, with weight gain (10 kg), decreased breath sounds and b/l pleural effusions, will give Lasix 20 mg IV x1. 02/07/17 WBC increased to 12.6 today after being normal x2 days. Last documented fever was 02/05 at 1824. Continue ceftriaxone through 03/17/17. Will adjust timing of infusion - currently at 2000; tonight will give at 1800 and tomorrow will give at 1630, which is the time she plans on coming in daily for infusion. Dr. Hernandez would like a CBC with differential, CMP, sedimentation rate, and C-reactive protein once weekly on Mondays. Please fax to her office at [phone]. She would like to see her in the office in 3 weeks. The patient will need routine PICC line care through the infusion center. She responded well to Lasix yesterday - weight is down x3 kg and breath sounds improved. Continue IS. Hyponatremia has resolved. Hgb low but stable at 8.6; s/p IV iron infusion yesterday. Discharge not safe today with increased WBC. 02/08/17 11:40 02/08/17 Continue Ceftriaxone through 03/17/17. Dr. Hernandez with Follow. Starting Vanco today due to increasing WBC count. Repeat labs, CXR in AM. Encourage I.S. Continue IV iron for full replacement. Likely some degree of bone marrow suppression given chronic immunosuppressive therapy. May need to hold Plaquenil if leukocytosis persists. She follows with Dr. Morrow as outpatient for RA. Faint aortic murmur- monitor. May need OP echo. Will add low dose Lasix and KCl as serum osmo remains low. Should help lower BP. Continue amlodipine. Continue Seroquel for mood stabilization (can also cause bone marrow suppression )- monitor. SCDs for DVT px. Consider adding Lovenox when ok with Ortho. D/W Dr Barbour today. Chart is reviewed during this visit. Medically complex, high risk given infection with immunosuppression. Plan - 02/09/17 ([place]). Patient has slightly depressed mood today, understandably. Continue to monitor mood closely given the possibility of another surgery per Dr. García on 02/10. Continue to provide safe and supportive environment. Patient seen and evaluated by Dr. Hernandez who does not recommend continuation of Vancomycin in addition to the Rocephin for coverage of the pansensitive strep pneumoniae. Vancomycin was discontinued. CRP trending down at 204.2. Leukocytosis trending down at 11.7. Patient may warrant additional surgery for I&D and/or hardware removal, possibly scheduled for 02/10 depending on clinical progress. Patient was initially NPO but is now full diet as tolerated. Anticipate NPO at midnight but awaiting surgical decision per Dr. García. Continue pain control and bowel motivation. Blood cultures remain negative after 3 days. Continue to hold Plaquenil and methotrexate. Continue to encourage incentive spirometry for pulmonary toileting. Hypomagnesium noted at 1.4. Will give Mag ox 400mg x 1 dose and recheck in AM. Recheck CBC and BMP in AM to monitor blood counts, electrolytes and renal function. Plan - 02/10/17: Overall, Nona appears to be making slow gains. Continue on Rocephin for pansensitive strep pneumoniae per Dr. Hernandez' recommendations. Appreciate her time and expertise. Aspirate obtained from left knee on 02/09/17 with results pending and no current growth. Possible surgery in near future, possibly 02/12. Will be determined by ortho based on response to antibiotics. Clinic exam reveals improving erythema and swelling with resolution of discharge. Concern that patient will need to have hardware removed. Appreciate Dr. García's time and expertise. CRP continues to trend down at 136.6. Slight increase in leukocytosis at 12.3. Will continue to monitor trends. Blood cultures remain negative after 4 days. Hypomagnesium slightly improved at 1.5. Will given an additional 400mg MagOx now and continue to monitor. Anemia stable - hemoglobin 9.5. Increased thrombocytosis with platelets at 624. Continue to monitor. New hypokalemia noted with potassium at 3.2. Will give KCl 40 mEq po now and recheck in AM. Continue to provide safe and supportive environment. Continue to encourage incentive spirometry for pulmonary toileting. Discharge Plan - Discharge Disposition Discharge Date: 02/10/17 Disposition: 01 Discharged Home, Self-Care *Condition: Stable Reason For Visit (Visit label in EMR): left knee pain - Discharge Medications *Discharge Medications: New Aspirin Chewable [ASA] 81 mg PO BID tab.chew Docusate Sodium [Colace] 100 mg PO BID PRN capsule PRN Reason: Constipation Ferrous Sulfate [Feosol] 324 mg PO WB tablet Hydrocodone/APAP 7.5/325 [[place] 7.5/325] 1 - 2 tab PO Q6H PRN #30 tab PRN Reason: Pain PEG 3350 17gm PACKET [Miralax] 17 gm PO DAILY packet Senna + Docusate [Senna Plus Tablet] 1 tab PO BID tablet Acetaminophen [Tylenol] 500 mg PO Q6H PRN tablet PRN Reason: Fever Ascorbic Acid [Vitamin C] 500 mg PO WB tablet Furosemide [Lasix] 20 mg PO 0900,1500 #30 tab Potassium Chloride [K-Dur] 20 meq PO WB #30 tab Continue Metaxalone 800 mg PO TIDPRN #0 Hydroxychloroquine [Plaquenil] 200 mg PO BID #0 Cetirizine HCl 5 mg PO HS #0 Calcium Carbonate/Vitamin D3 [Calcium 600 + Vit D 400 Softgl] 1 cap PO DAILY #0 Folic Acid 1 tab PO DAILY #0 tab Amlodipine Besylate 5 mg PO HS #0 tab cycloSPORINE [Restasis] 1 drop BOTH EYES DAILY #0 drop Estradiol Vag Cream [Estrace Vag Cream] 1 applic VAGINAL HS Fluticasone Nasal [place] [Flonase] 2 inh NS HS Quetiapine [SEROquel] 200 mg PO HS Vitamin E 400 unit PO DAILY Cholecalciferol (Vitamin D3) [Vitamin D3] 1,000 unit PO DAILY Citalopram Hydrobromide [Citalopram HBr] 40 mg PO HS #0 Biotin 1 cap PO DAILY #0 Multivitamin [Multi-Day Vitamins] 1 tab PO DAILY #0 tab Omeprazole 20 mg PO DAILY No Action Guaifenesin/Dextromethorphan [Mucinex Dm ER 1,200-60 mg Tab] 1 tab PO BID metHOTREXate sodium [Methotrexate] 6 tab PO WEEKLY - Discharge Packet/Instructions *Diet: regular *Activity: as tolerated *Pain Management/Treatment: [place] 7.5/325 - 1-2 tab every 6 hours as needed for pain. Tylenol 500mg - 1 tab every 6 hours as needed for pain. Rest, ice, elevate leg. *Wound Care: Keep the incision and dressing dry. Notify Dr García of any drainage or wound concerns. Additional Instructions: Follow up with Dr. Hernandez in her office in 3-4 week. Call in AM to schedule appointment. Follow up with Dr. Morrow with regard to restarting your methotrexate. Follow up with Dr. García as directed. Return to the infusion center daily for antibiotic treatment x 6 weeks (03/29/17). Weekly CBC with diff, CMP, Sed rate and CRP - beginning 02/12/17; results to be faxed to Dr. Hernandez at [phone]. Rest, ice and elevate knee. Monitor incision site closely for signs of increased redness, swelling, discharge or other concerns symptoms. *Expected Signs/Symptoms: Continued improvement with decrease in pain, swelling and redness. *Notify Physician if: Uncontrolled pain, fever > 101, Drainage from the incision. *During Business Hours Contact: Dr. García or the on-call physician - [phone]. *After Business Hours Contact: the on-call physican or present to the emergency room. *Pending Lab/Results: No Pending Lab - Referrals/Follow Up *Referrals/Follow Up: Estuardo Brewer PA [Physician [employer]] - 02/16/17 8:30 am Alise Hernandez MD [Physician] - 3 Weeks - Patient Handouts Patient Handouts: Wound Infection (DC), [facility] Postop Instructions - Dismissal Complete Discharge Instructions are:: Complete <Johnny Barbour - Last Filed: 02/10/17 17:12> Discharge Information Date of admission: 02/03/17 23:56 Attending Physician: Johnny Barbour MD Primary care physician: Zaid Moraes II, MD Consults: 02/04/17 09:30 Physician Consult [CONS] Routine Consulting Provider: Alise Hernandez Reason For Exam: Suspected infected L TKA Ordering Provider has Notified Room Service Waiter: Yes - Discharge Diagnosis (1) Prosthetic joint infection Status: Acute - Laboratory Labs: 02/10/17 04:03 02/10/17 04:03 - Microbiology Microbiology 02/09/17 13:05 Aspirate, Left Knee Gram Stain - Final 02/09/17 13:05 Aspirate, Left Knee Body Fluid Culture - Preliminary No Growth After 1 Day 02/05/17 18:44 Peripheral/Iv Start Blood Culture - Preliminary No Growth After 4 Days 02/05/17 18:47 Peripheral/Iv Start Blood Culture - Preliminary No Growth After 4 Days 02/04/17 12:45 Knee, Left Intraop Tissue Gram Stain - Final 02/04/17 12:45 Knee, Left Intraop Tissue Surgical Culture - Final Streptococcus pneumoniae 02/04/17 07:49 Synovial Fluid, Left Knee Gram Stain - Final 02/04/17 07:49 Synovial Fluid, Left Knee Body Fluid Culture - Final Streptococcus pneumoniae 02/04/17 12:45 Knee, Left Intraop Tissue Gram Stain - Final 02/04/17 12:45 Knee, Left Intraop Tissue Surgical Culture - Final Streptococcus pneumoniae 02/04/17 12:45 Knee, Lt Intraop Site Gram Stain - Final 02/04/17 12:45 Knee, Lt Intraop Site Surgical Culture - Final Streptococcus pneumoniae Objective Vital signs: Temperature 98.2 F 02/10/17 11:48 Pulse Rate 85 02/10/17 11:48 Respiratory Rate 18 02/10/17 11:48 Blood Pressure 138/82 02/10/17 11:48 Pulse Oximetry 97 02/10/17 11:48 Height/Weight/BMI: Height 1.65 m Weight 76.1 kg Body Mass Index 28.1 Hospital Course This is a general summary of the patient's hospital course. For more details refer to the complete medical record. Attestation Narriative - Attestation Attestation Narrative: 02/10/17 17:11 I have independently interviewed and examined patient prior to discharge. See my progress note from today for details. Medically stable for discharge to home.
== END 2017-02-10 15:35 | disposition home or self-care (01) | DRG 486 ==
LOC: ED 22:55 → SRG 23:56 → SUATTDRO 23:56 → SRG 02-04 00:25
PROVIDERS: ADMIT Emergency Medicine; ATTEND Hospitalist

== ENCOUNTER 2017-02-12 16:51 | Inpatient (IN) ==
--- NOTE | 2017-02-12 17:30 | Emergency Department Report ---
Altered Mental Status HPI - General Chief Complaint: Altered Mental Status Stated Complaint: confusion, Time Seen by Provider: 02/12/17 17:00 Source: patient Mode of arrival: ambulatory Limitations: no limitations - History of Present Illness HPI narrative: She was dismissed from [facility] on 02/10/17. Had been admitted for surgery due to infected left knee post joint replacement. Had the joint replacement early this year. Dr García was her surgeon. She was set up for daily IV antibiotic infusion. Came in yesterday afternoon and had her infusion. Her states that within 90 minutes of the infusion she started having some confusion. Today this has gotten much worse. She has not had a fever or any other symptoms. Had been doing well at home until yesterday. She does have a PICC line in place in the right upper arm. MD complaint: altered mental status Onset (ago): day(s) (started yesterday) Timing confirmed by: spouse Severity: moderate Consistency of symptoms: getting worse Associated symptoms: denies other symptoms - Related Data Home Medications Medication Instructions Recorded Confirmed Citalopram Hydrobromide 40 mg PO HS #0 10/12/09 02/12/17 [Citalopram HBr] Hydroxychloroquine [Plaquenil] 200 mg PO BID #0 10/12/09 02/12/17 Cetirizine HCl 5 mg PO HS #0 03/13/11 02/12/17 Amlodipine Besylate 5 mg PO HS #0 tab 04/17/16 02/12/17 Folic Acid 1 mg PO DAILY #0 tab 04/17/16 02/12/17 Multivitamin [Multi-Day Vitamins] 1 tab PO WS #0 tab 04/17/16 02/12/17 cycloSPORINE [Restasis] 1 drop BOTH EYES DAILY #0 drop 04/17/16 02/12/17 Estradiol Vag Cream [Estrace Vag 1 applic VAGINAL HS 10/03/16 02/12/17 Cream] Fluticasone Nasal [place] [Flonase] 2 spray EA NOSTRIL DAILY 10/03/16 02/12/17 Omeprazole 20 mg PO NOON 10/03/16 02/12/17 Quetiapine [SEROquel] 200 mg PO HS 10/03/16 02/12/17 Previous Rx's Medication Instructions Recorded Acetaminophen [Tylenol] 500 mg PO Q6H PRN tablet 02/10/17 Ascorbic Acid [Vitamin C] 500 mg PO WB tablet 02/10/17 Aspirin Chewable [ASA] 81 mg PO BID tab.chew 02/10/17 Docusate Sodium [Colace] 100 mg PO BID PRN capsule 02/10/17 Ferrous Sulfate [Feosol] 324 mg PO WB tablet 02/10/17 Furosemide [Lasix] 20 mg PO 0900,1500 #30 tab 02/10/17 Hydrocodone/APAP 7.5/325 [[place] 1 - 2 tab PO Q6H PRN #30 tab 02/10/17 7.5/325] PEG 3350 17gm PACKET [Miralax] 17 gm PO DAILY packet 02/10/17 Potassium Chloride [K-Dur] 20 meq PO WB #30 tab 02/10/17 Senna + Docusate [Senna Plus 1 tab PO BID tablet 02/10/17 Tablet] Allergies Allergy/AdvReac Type Severity Reaction Status Date / Time No Known Drug Allergies Allergy Unknown Verified 02/12/17 17:12 Review of Systems Constitutional: Denies: fever, chills, weakness Eyes: Denies: eye pain, vision change ENT: Denies: ear pain, throat pain, congestion Cardiovascular: Denies: chest pain, palpitations, dyspnea on exertion, edema Respiratory: Denies: cough, dyspnea, wheezes Gastrointestinal: Denies: abdominal pain, nausea, vomiting, diarrhea Neurological: Denies: headache, weakness, numbness, paresthesias Psychiatric: Reports: other (confusion) [facility] Patient Stated Medical History Cerebrovascular Accident No Paralysis No Seizures No Syncope No Angina No Cardiac Arrhythmia No Congestive Heart Failure No Coronary Artery Disease No Heart Murmur No Hypertension Yes Hypotension No Myocardial Infarction No Rheumatic Fever No Valvular Heart Disease No Other Cardiology No Asthma No Bronchitis No Chronic Obstructive Pulmonary No Disease (COPD) Pneumonia No Pulmonary Edema No Pulmonary Embolism No Sleep Apnea No Tuberculosis No Other Respiratory No Diabetes Mellitus Type 1 No Diabetes Mellitus Type 2 No Cirrhosis No Gastroesophageal Reflux No Disease Gastrointestinal Bleeding No Hepatitis No Hiatal Hernia No Obstructive Bowel No Ulcer No Other GI No Hx Renal Disease No Anemia Yes Osteoarthritis No Other Musculoskeletal No Anesthesia Reactions No Blood Transfusions No Chemotherapy No Malignant Hyperthermia No Other No Depression No Post Menopausal Yes Now No Clinic Medical History (Last Reviewed 12/18/16 @ 16:53 by Latonia Guerra) Knee pain, left (Acute Medical) Rheumatoid arthritis (Acute Medical) Hypertension (Acute Medical) GERD (gastroesophageal reflux disease) (Acute Medical) Prosthetic joint infection (Acute Medical) Adult idiopathic generalized osteoporosis (Acute Medical) Anxiety (Acute Medical) Depression (Acute Medical) Discoid lupus (Acute Medical) GERD (gastroesophageal reflux disease) (Acute Medical) Hypertension (Acute Medical) Osteoarthritis (Acute Medical) Headache (Inactive Medical) Hypertension (Inactive Medical) Surgical History: Bilateral breast augmentation, Age 45. TKA, left 2017. Bilateral exchange of saline implants to [place] [employer] breast implants 395 cc tall height, moderate plus profile 10/06/2016 Family History: Family History (Last Reviewed 12/18/16 @ 16:53 by Latonia Guerra) Father Hypertension Coronary artery disease Stroke Paternal Grandmother Diabetes Maternal Grandmother Breast cancer Mother Rheumatoid arthritis Osteoporosis Hypertension Hypercholesterolemia Heart disease Maternal Aunt Breast cancer Maternal Uncle Diabetes - Social History Smoking status: Never smoker Physical Exam - Limitations Limitations: no limitations - General General appearance: alert, in no apparent distress - Normal Exams: ENMT:: No facial trauma, nasal exudates, pharyngeal erythema, or exudates are noted Neck:: Full range of motion, without adenopathy, JVD, bruits or thyromegaly Chest/Respirations:: Clear all aleman, with good airflow, and symmetry bilaterally Cardiovascular:: Regular rate and rhythm, without murmur or gallop, Pulses 2+ all extremities, capillary refill, <2 seconds all extremities Abdomen:: Bowel sounds positive, soft, non-tender, non-distended, no hepatosplenomegaly, masses or bruits noted Lymphatic:: No lymphadenopathy, or lymphedema noted Integumentary:: No rashes, hives, or bruising noted Neurological:: Patient is alert, and oriented Psychiatric:: Patient exhibits, appropriate attention, emotion and affect Course Vital Signs Temperature 97.9 F 02/12/17 17:04 Pulse Rate 108 H 02/12/17 17:04 Respiratory Rate 18 02/12/17 17:04 Blood Pressure 160/84 H 02/12/17 17:04 Pulse Oximetry 100 02/12/17 17:04 Temperature 97.9 F 02/12/17 17:04 Pulse Rate 108 H 02/12/17 17:04 Respiratory Rate 18 02/12/17 17:04 Blood Pressure 160/84 H 02/12/17 17:04 Pulse Oximetry 100 02/12/17 17:04 Altered Mental Status - MDM Narrative Medical decision making narrative: Noted increase in WBC since dismissal labs. Ct of head is negative. UA is negative. CMP is unremarkable. Lactate and Procalcitonin in Er are negative as well. Did give Rocephin 2G IV in Er as per her OP orders. NS 1 liter infused in ER as well. Ativan was given IV for CT and upon return she is more alert and is more clear. She does remain confused and does not recall anything from earlier today. She does know she is at [facility]. Did call and discuss findings with Dr García. Her knee exam is unremarkable at this time as well. Did discuss findings with Dr. Hernandez per his request. She does feel that the Rocephin is the appropriate antibiotic. Does recommend continuing with the treatment plan. Discussed HPI, exam, and labs/radiology with Dr Gu who will accept for admission for the encephalopathy. - Differential Diagnosis Likely: altered mental status, delirium, hyponatremia, subarachnoid hemorrhage, sepsis - Lab Data Attestation: I reviewed the patient's lab results. Result diagrams: 02/12/17 17:09 02/12/17 17:48 - Radiology Data Attestation: I reviewed the patient's radiology results. CT head: No acute findings Xray chest: no acute cardiopulmonary process Disposition Clinical Impression: Altered mental status Qualifiers: Altered mental status type: unspecified Qualified Code(s): R41.82 - Altered mental status, unspecified Disposition: 02 To OBS [facility] Condition: Stable Prescriptions: No Action Hydroxychloroquine [Plaquenil] 200 mg PO BID #0 Cetirizine HCl 5 mg PO HS #0 Folic Acid 1 mg PO DAILY #0 tab Amlodipine Besylate 5 mg PO HS #0 tab cycloSPORINE [Restasis] 1 drop BOTH EYES DAILY #0 drop Estradiol Vag Cream [Estrace Vag Cream] 1 applic VAGINAL HS Fluticasone Nasal [place] [Flonase] 2 spray EA NOSTRIL DAILY Quetiapine [SEROquel] 200 mg PO HS Aspirin Chewable [ASA] 81 mg PO BID tab.chew Docusate Sodium [Colace] 100 mg PO BID PRN capsule PRN Reason: Constipation Ferrous Sulfate [Feosol] 324 mg PO WB tablet Hydrocodone/APAP 7.5/325 [[place] 7.5/325] 1 - 2 tab PO Q6H PRN #30 tab PRN Reason: Pain PEG 3350 17gm PACKET [Miralax] 17 gm PO DAILY packet Senna + Docusate [Senna Plus Tablet] 1 tab PO BID tablet Citalopram Hydrobromide [Citalopram HBr] 40 mg PO HS #0 Multivitamin [Multi-Day Vitamins] 1 tab PO WS #0 tab Omeprazole 20 mg PO NOON Acetaminophen [Tylenol] 500 mg PO Q6H PRN tablet PRN Reason: Fever Ascorbic Acid [Vitamin C] 500 mg PO WB tablet Furosemide [Lasix] 20 mg PO 0900,1500 #30 tab Potassium Chloride [K-Dur] 20 meq PO WB #30 tab Referrals: Zaid Moraes II, MD [Primary Care Provider] - Time of Disposition: 19:52 - Seen By: thomas
[2017-02-12] MEDS ORDERED: NS 1,000 ML IV ONE (17:49)
[2017-02-12] MEDS ORDERED: CEFTRIAXONE (ER USE ONLY) 1 GM in NS 100 ML IV ONE (18:15)
[2017-02-12] MEDS ORDERED: CEFTRIAXONE 2 GM in NS 100 ML IV ONE (18:20)
[2017-02-12] MEDS ORDERED: DOCUSATE SODIUM 100 MG CAPSULE PO PRN (21:03)
[2017-02-12] MEDS ORDERED: ONDANSETRON 4 MG/2 ML INJECTION IVP PRN (21:03)
[2017-02-12 21:10] VITALS: BMI 27.4
[2017-02-12] MEDS: NS 1,000 ML IV SCH (21:21)
[2017-02-12] MEDS ORDERED: LEVOFLOXACIN PB 750 MG/150 ML BAG IV SCH (23:30)
--- NOTE | 2017-02-12 23:33 | History & Physical Report ---
History of Present Illness Date: 02/13/17 Chief complaint: Confusion HPI: 66 yo F with recent hospitalization for a left prosthetic knee infection D/C on 02/10/17 presented tot he ED with reports of confusion. Had the joint replacement early this year. Dr García was her surgeon. She developed an infection in her knee and was admitted and taken to OR for a wash out. CX taken that grew strep. pneumo. patient was D/C and set up for daily infusions of ceftriaxone. Came in yesterday afternoon and had her infusion. Her states that within 90 minutes of the infusion she started having some confusion. Patient reports increased anxiety, reports generalized confusion. Today this has gotten much worse. She has not had a fever or any other symptoms. Patient presented for her outpatient infusion today and was sent to the ED for evaluation. Review of Systems ROS unobtainable: due to mental status [facility] Patient Stated Medical History Cerebrovascular Accident No Paralysis No Seizures No Syncope No Angina No Cardiac Arrhythmia No Congestive Heart Failure No Coronary Artery Disease No Heart Murmur No Hypertension Yes Hypotension No Myocardial Infarction No Rheumatic Fever No Valvular Heart Disease No Other Cardiology No Asthma No Bronchitis No Chronic Obstructive Pulmonary No Disease (COPD) Pneumonia No Pulmonary Edema No Pulmonary Embolism No Sleep Apnea No Tuberculosis No Other Respiratory No Diabetes Mellitus Type 1 No Diabetes Mellitus Type 2 No Cirrhosis No Gastroesophageal Reflux No Disease Gastrointestinal Bleeding No Hepatitis No Hiatal Hernia No Obstructive Bowel No Ulcer No Other GI No Hx Renal Disease No Anemia Yes Osteoarthritis No Other Musculoskeletal No Anesthesia Reactions No Blood Transfusions No Chemotherapy No Malignant Hyperthermia No Other No Depression No Post Menopausal Yes Now No Clinic Medical History (Last Reviewed 12/18/16 @ 16:53 by Latonia Guerra) Knee pain, left (Acute Medical) Rheumatoid arthritis (Acute Medical) Hypertension (Acute Medical) GERD (gastroesophageal reflux disease) (Acute Medical) Prosthetic joint infection (Acute Medical) Altered mental status (Acute Medical) Adult idiopathic generalized osteoporosis (Acute Medical) Anxiety (Acute Medical) Depression (Acute Medical) Discoid lupus (Acute Medical) GERD (gastroesophageal reflux disease) (Acute Medical) Hypertension (Acute Medical) Osteoarthritis (Acute Medical) Headache (Inactive Medical) Hypertension (Inactive Medical) Surgical History: Bilateral breast augmentation, Age 45. TKA, left 2016. Bilateral exchange of saline implants to [place] [employer] breast implants 395 cc tall height, moderate plus profile 10/06/2016 Family History: Family History (Last Reviewed 12/18/16 @ 16:53 by Latonia Guerra) Father Hypertension Coronary artery disease Stroke Paternal Grandmother Diabetes Maternal Grandmother Breast cancer Mother Rheumatoid arthritis Osteoporosis Hypertension Hypercholesterolemia Heart disease Maternal Aunt Breast cancer Maternal Uncle Diabetes - Social History Smoking status: Never smoker Medications Home Medications Medication Instructions Recorded Confirmed Type Citalopram Hydrobromide 40 mg PO HS #0 10/12/09 02/12/17 History [Citalopram HBr] Hydroxychloroquine [Plaquenil] 200 mg PO BID #0 10/12/09 02/12/17 History Cetirizine HCl 5 mg PO HS #0 03/13/11 02/12/17 History Amlodipine Besylate 5 mg PO HS #0 tab 04/17/16 02/12/17 History Folic Acid 1 mg PO DAILY #0 tab 04/17/16 02/12/17 History Multivitamin [Multi-Day Vitamins] 1 tab PO WS #0 tab 04/17/16 02/12/17 History cycloSPORINE [Restasis] 1 drop BOTH EYES DAILY #0 drop 04/17/16 02/12/17 History Estradiol Vag Cream [Estrace Vag 1 applic VAGINAL HS 10/03/16 02/12/17 History Cream] Fluticasone Nasal [place] [Flonase] 2 spray EA NOSTRIL DAILY 10/03/16 02/12/17 History Omeprazole 20 mg PO NOON 10/03/16 02/12/17 History Quetiapine [SEROquel] 200 mg PO HS 10/03/16 02/12/17 History Allergies Allergy/AdvReac Type Severity Reaction Status Date / Time No Known Drug Allergies Allergy Unknown Verified 02/12/17 17:12 Exam Vital Signs: Temperature 98 F 02/12/17 21:05 Pulse Rate 94 02/12/17 21:05 Respiratory Rate 18 02/12/17 21:05 Blood Pressure 148/81 H 02/12/17 21:05 Pulse Oximetry 97 02/12/17 21:05 Height/Weight/BMI: Height 1.65 m Weight 74.9 kg Body Mass Index 27.4 - Constitutional Present: mild distress, disheveled - Routine Respiratory Exam Present: CTA bilaterally. Absent: wheezes - Routine Cardiovascular Exam Present: RRR. Absent: murmur - Routine Abdominal Exam Present: soft, normoactive bowel sounds, non distended. Absent: tenderness - Routine Skin Exam Present: dry, warm - Routine Neurological Exam Present: altered mental status (not alert to place, time or situation) - Routine Psychiatric Exam Present: agitated Results - Labs CBC & Chem 7: 02/13/17 04:29 02/13/17 04:29 Assessment and Plan (1) Rheumatoid arthritis Current visit: No Status: Acute (2) Hypertension Current visit: No Status: Acute (3) GERD (gastroesophageal reflux disease) Current visit: No Status: Acute (4) Prosthetic joint infection Current visit: No Status: Acute (5) Altered mental status Current visit: Yes Status: Acute Assessment and Plan: Patients AMS could be due to hospital acquired PNA, vs polypharmacy vs sepsis from her right knee infection. Will widen ABX to add VANC/levaquin. repeat blood CX pending. check UDS. Patient started on IVF, reports symptoms have improved after IVF and ativan in the ED. will continue this overnight. Consult ortho, and ID in AM. CT head negative in the ED. Demetra Gu's note reviewed. Mrs. Armstrong interviewed and examined. Old records reviewed. CC: AMS HPI: Mrs. Armstrong is a 66 yo recently hospitalized with a left prosthetic knee infection. She was dismissed on 02/10/17 on Rocephin. Her provides most of the history; she is minimally cooperative and dose not know she is in the hospital. He says she has been confused and hallucinating for the past 2 days now. He says she was taking one [place] at bedtime and only Tylenol the rest of the time. He says she has c/o a headache that seems sinus related. She has not slept for 4 days. She was given Vanco in the ER and started on Levaquin. Her says her knee looks a little more red. He says there has not been any drainage. PH/FH/SH: agree with above. ROS: unable to obtain from patient as she did not answer questions. Her added that she had not eaten since lunch yesterday and her appetite was declining before that. EXAM 96.0 156/83 HR 95 RR 18 96% RA Gen: restless, minimally cooperative HEENT: nc/at, perrl, anicteric, mmm Lungs: ctab CV: rrr w/o m,r,g Abd: s/nt/nd +bs ext: trace edema left LLE. Erythema along the incision inferior to the patella. No drainage. Assessment toxic-metabolic encephalopathy left prosthetic knee infection with strep pneumoniae HTN insomnia RA on plaquenil/mtx GERD mood disorder Plan Admit as inpatient. Her is having to sit by the bed to keep her calm. Will start haldol scheduled and prn. Increase available Ativan. Infection could be playing a role but CRP has continued to trend down. Case d/w Drs. García and David. Both are consulted. Will restart ceftriaxone and dc Levaquin. Lack of sleep and/or pain control might be the biggest issue. [place] and iv morphine available. Home medications resumed. DVT Prophylaxis: Lovenox GI Prophylaxis: Protonix Resuscitation Status: Full Code Hospital Course Summary Disclaimer: The visit summary below is not to be considered part of the above Progress Note. Hospital Course: 02/13/17 12:55 Admit as inpatient. Her is having to sit by the bed to keep her calm. Will start haldol scheduled and prn. Increase available Ativan. Infection could be playing a role but CRP has continued to trend down. Case d/w Drs. García and David. Both are consulted. Will restart ceftriaxone and dc Levaquin. Lack of sleep and/or pain control might be the biggest issue. [place] and iv morphine available. Home medications resumed.
--- NOTE | 2017-02-13 08:21 | XRay Report ---
Indication: confusion PROCEDURE: XR chest 1V: Encounter: Initial Comparison: February 09, 2017 FINDINGS: Right PICC line remains in place. The lungs are clear. There is no abnormal airspace opacity, pleural effusion or pneumothorax identified. The heart size, pulmonary vasculature and mediastinum are within normal limits. IMPRESSION: No acute cardiopulmonary abnormality. .
--- NOTE | 2017-02-13 08:22 | CT Scan Report ---
Indication: confusion PROCEDURE: CT head/brain wo con: Encounter: Initial Comparison: February 01, 2017 Technique: Axial CT images through the head were performed without contrast. Iterative Reconstruction dose reducing technique was utilized. FINDINGS: The ventricles are of normal size, shape, and contour for the patient's age. There are scattered areas of low attenuation in the white matter which most likely represent changes from chronic microvascular ischemia. The brainstem, cerebellum, and cerebral hemispheres otherwise have a normal morphology and CT attenuation. There is no evidence of midline displacement. No hemorrhage, signs of acute territorial stroke, mass effect, mass lesions, or edema is evident. The visualized portions of the skull base, midface, and calvarium demonstrate no abnormality. The paranasal sinuses are well aerated and free of significant disease. The tympanic and mastoid cavities appear normal. IMPRESSION: No acute intracranial abnormality or hemorrhage. Stable head CT. There is a preliminary report by virtual radi[facility]. .
[2017-02-13] MEDS: NS 1,000 ML IV SCH ×2 (09:26→21:31)
[2017-02-13] MEDS ORDERED: DOCUSATE SODIUM 100 MG CAPSULE PO PRN (11:23)
[2017-02-13] MEDS ORDERED: MORPHINE SULFATE 4mg INJECTION IVP PRN (11:28)
[2017-02-13] MEDS ORDERED: HALOPERIDOL 5 MG/ML INJECTION IVP PRN (11:47)
[2017-02-13] MEDS: HYDROCODONE/APAP 7.5 MG/325 MG TABLET PO PRN ×2 (11:56→18:48)
[2017-02-13] MEDS ORDERED: NON-FORMULARY MEDICATION 1 EACH EACH (Omeprazole [Omeprazole] 20 MG) PO SCH (12:00)
[2017-02-13] MEDS: FLUTICASONE NASAL SPRAY 50mcg EA NOSTRIL SCH (12:46)
[2017-02-13] MEDS: CEFTRIAXONE 2 GM in NS 100 ML IV SCH (12:46)
[2017-02-13] MEDS: CycloSPORINE 0.05% EYE DROPS 4ml EACH EYE SCH (12:48)
--- NOTE | 2017-02-13 13:28 | Orthopedic Progress Note ---
Date: Subjective/Severity of Illness: Mrs. Sandra was admitted last night for increased confusion. She is confused morning when I speak to her does not know why exactly she is in the hospital. She does tell me that her knee feels okay and does not have increased pain and she's been ambulating well. Orthopedic Objective Vital signs: Temperature 96.0 F L 02/13/17 07:34 Pulse Rate 95 02/13/17 08:22 Respiratory Rate 18 02/13/17 08:22 Blood Pressure 156/83 H 02/13/17 07:34 Pulse Oximetry 96 02/13/17 08:22 Height and Weight: Height 5 ft 5 in Weight 74.5 kg Body Mass Index 27.4 - Constitutional General Appearance: Present: cooperative, no acute distress Comments: Confused - Respiratory Exam Present: non-labored - Cardiovascular Exam Present: pedal pulses intact Capillary Refill: < 2-3 Seconds - Extremities Exam Absent: calf tenderness - Integumentary Exam Comments: Her left knee incision remains clean dry and intact. There is some mild erythema which may be reactive. The knee is stable no skin motion. Swelling is minimal. - Neurological Exam Present: no deficits. Absent: intact to light touch - Psychiatric Exam Present: alert - Labs Result Diagrams: 02/13/17 04:29 02/13/17 04:29 Abnormal lab results 02/13/17 02/13/17 02/13/17 Range/Units 04:23 04:29 04:29 WBC 15.2 H (4.5-11.0) T/MM3 RBC 3.02 L (4.00-5.20) M/MM3 Hgb 9.0 L D (12-16) GM/DL Hct 27.8 L D (36-46) % Plt Count 655 H (130-400) T/MM3 MPV 8.6 L (9.4-12.4) UM3 Neutrophils % (Manual) 91.0 H (33-66) % Lymphocytes % (Manual) 4.0 L (23-45) % Neutrophils # (Manual) 13.8 H (1.8-7.7) T/MM3 Lymphocytes # (Manual) 0.6 L (1-4.8) T/MM3 Calculated Osmolality 258 L (261-280) MOSM/KG AST 42 H (14-36) U/L ALT 61 H (9-52) U/L Alkaline Phosphatase 182 H (38-126) U/L C-Reactive Protein 35.1 H (0-9) MG/L Albumin 3.2 L (3.5-5.0) G/DL Albumin/Globulin Ratio 1.0 L (1.1-2.2) RATIO H & H 02/13/17 Range/Units 04:29 Hgb 9.0 L D (12-16) GM/DL Hct 27.8 L D (36-46) % Orthopedic Assessment and Plan (1) Prosthetic joint infection Status: Acute Qualifiers: Encounter type: subsequent encounter Qualified Code(s): T84.50XD - Infection and inflammatory reaction due to unspecified internal joint prosthesis , subsequent encounter Assessment and Plan: Her exam findings as well as her CRP continues to normalize. I do not suspect her confusion is coming from a recurrence of her knee infection. If her CRP starts trend up then I think another aspiration would be indicated. At this time I would continue current treatment with antibiotics per Dr. Hernandez and medical management per the hospitalist team. We will follow along to evaluate her knee. Hospital Course Summary Disclaimer: The visit summary below is not to be considered part of the above Progress Note. Hospital Course: 02/13/17 12:55 Admit as inpatient. Her is having to sit by the bed to keep her calm. Will start haldol scheduled and prn. Increase available Ativan. Infection could be playing a role but CRP has continued to trend down. Case d/w Drs. García and David. Both are consulted. Will restart ceftriaxone and dc Levaquin. Lack of sleep and/or pain control might be the biggest issue. [place] and iv morphine available. Home medications resumed.
[2017-02-13] MEDS: HALOPERIDOL 1 MG TABLET PO SCH ×3 (14:04→21:33)
[2017-02-13] MEDS: FUROSEMIDE 20 MG TABLET PO SCH (14:52)
[2017-02-13] MEDS ORDERED: NON-FORMULARY MEDICATION 1 EACH EACH (Multivitamin [Multi-Day Vitamins] 1 TAB) PO SCH (17:30)
[2017-02-13] MEDS ORDERED: CETIRIZINE HCL 5 MG PO SCH (21:00)
[2017-02-13] MEDS: SENNA + DOCUSATE TABLET PO SCH (21:33)
[2017-02-13] MEDS: CITALOPRAM 40 MG TABLET PO SCH (21:33)
[2017-02-13] MEDS: AMLODIPINE 5 MG TABLET PO SCH (21:33)
[2017-02-13] MEDS: HYDROXYCHLOROQUINE 200 MG TABLET PO SCH (21:33)
[2017-02-13] MEDS: ASPIRIN 81 MG CHEWABLE TABLET PO SCH (21:33)
[2017-02-13] MEDS: ESTRADIOL 0.01% VAGINAL CREAM 42.5gm VAGINAL SCH (21:34)
[2017-02-13] MEDS: QUETIAPINE 200 MG TABLET PO SCH (21:34)
[2017-02-14] MEDS ORDERED: FALL RISK - PHARMACY CONSULT MC ONE (01:34)
[2017-02-14] MEDS: OMEPRAZOLE 20 MG CAPSULE PO SCH (06:44)
[2017-02-14] MEDS: HALOPERIDOL 1 MG TABLET PO SCH ×3 (08:08→21:25)
[2017-02-14] MEDS: NS 1,000 ML IV SCH ×2 (08:08→17:29)
[2017-02-14] MEDS ORDERED: CETIRIZINE 10 MG TABLET PO SCH (09:00)
--- NOTE | 2017-02-14 09:29 | Progress Note ---
<Puja Gonsalves V - Last Filed: 02/14/17 09:26> - Date 02/14/17 Subjective: Nona is seen this morning while sleeping in bed, her is at her bedside. She does arouse during examination, she is alert and orientated to place however not date. Her feels that her confusion is improved this morning compared to days prior. She was able to get sleep with scheduled Haldol. On exam she denies having pain, Does report "twitching" intermittently. Vital signs stable. Objective Vital signs: Temperature 98.7 F 02/14/17 07:22 Pulse Rate 90 02/14/17 07:22 Respiratory Rate 18 02/14/17 07:22 Blood Pressure 131/72 02/14/17 07:22 Pulse Oximetry 94 02/14/17 07:22 Height/Weight/BMI: Height 1.65 m Weight 73 kg Body Mass Index 27.4 - Constitutional Present: no acute distress, well nourished, well developed - Routine HEENT Exam Eye: Present: EOMI ENT: Present: mucous membranes moist - Routine Respiratory Exam Present: CTA bilaterally. Absent: wheezes - Routine Cardiovascular Exam Present: RRR, S1, S2. Absent: murmur - Routine Abdominal Exam Present: soft, normoactive bowel sounds, non distended. Absent: tenderness - Routine Extremities Exam Present: full ROM - Routine Back/Spine/Pelvis Exam Back/Spine: Present: full ROM - Routine Skin Exam Present: intact, dry, warm - Routine Neurological Exam Present: alert, CN II-XII intact, altered mental status - Routine Lymphatic Exam Lymphatic: Absent: adenopathy - Routine Psychiatric Exam Present: cooperative Results - Labs CBC & Chem 7: 02/13/17 04:29 02/13/17 04:29 Assessment and Plan (1) Rheumatoid arthritis Current visit: No Status: Acute (2) Hypertension Current visit: No Status: Acute (3) GERD (gastroesophageal reflux disease) Current visit: No Status: Acute (4) Prosthetic joint infection Current visit: No Status: Acute (5) Altered mental status Current visit: Yes Status: Acute Assessment and Plan: Impression Toxic-metabolic encephalopathy 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 Continue on Rocephin IV for antimicrobial coverage. Levaquin was discontinued ( as this can cause encephalopathy) Continue with [place] for pain control. Monitor blood pressure- Currently on Norvasc and Lasix. Appreciated consultation by Dr García. monitor CRP which is trending down. Once medically improved consider PT/OT consult and ambulation with nursing staff to avoid weakness from acute illness Will recheck CBC, CRP and BMP today as ordered and planned for 10 am Discuss plan on care with attending, Dr Pierre. Hospital Course Summary Disclaimer: The visit summary below is not to be considered part of the above Progress Note. Hospital Course: 02/13/17 12:55 Admit as inpatient. Her is having to sit by the bed to keep her calm. Will start haldol scheduled and prn. Increase available Ativan. Infection could be playing a role but CRP has continued to trend down. Case d/w Drs. García and David. Both are consulted. Will restart ceftriaxone and dc Levaquin. Lack of sleep and/or pain control might be the biggest issue. [place] and iv morphine available. Home medications resumed. 02/14/17 -Plan Scheduled Haldol QID has helped with confusion and hallucinations. Continue on Rocephin IV for antimicrobial coverage. Levaquin was discontinued ( as this can cause encephalopathy) Continue with [place] for pain control. Monitor blood pressure- Currently on Norvasc and Lasix. Appreciated consultation by Dr García. monitor CRP which is trending down. Once medically improved consider PT/OT consult and ambulation with nursing staff to avoid weakness from acute illness Will recheck CBC, CRP and BMP today as ordered and planned for 10 am Discuss plan on care with attending, Dr Pierre. <Sumit Pierre - Last Filed: 02/14/17 15:37> - Date 02/14/17 Objective Vital signs: Temperature 98.7 F 02/14/17 07:22 Pulse Rate 90 02/14/17 07:22 Respiratory Rate 18 02/14/17 07:22 Blood Pressure 131/72 02/14/17 07:22 Pulse Oximetry 94 02/14/17 07:22 Height/Weight/BMI: Height 5 ft 5 in Weight 73 kg Body Mass Index 27.4 Results - Labs CBC & Chem 7: 02/14/17 10:02 02/14/17 10:02 Assessment and Plan (1) Rheumatoid arthritis Current visit: No Status: Acute (2) Hypertension Current visit: No Status: Acute (3) GERD (gastroesophageal reflux disease) Current visit: No Status: Acute (4) Prosthetic joint infection Current visit: No Status: Acute (5) Altered mental status Current visit: Yes Status: Acute Assessment and Plan: S: Pt was oriented x3 this am but was somnolent. Pt denied any n/v/d, f/c, cp or sob. Pt reported her pain was well controlled in knee. O: Gen: oriented x3, somnolent Cards: RRR, no murmurs Lungs: CTAB, no wheezes Abd: Soft, non-tender Ext: no edema or cyanosis A/P: Delirium -Unclear etiology, medication vs. infection? -Haldol has seemed to help but pt is very drowsy so will go down to BID dosing -basic labs, UDS, UA unremarkable -Will try to clean out med list and minimize meds that could effect mentation -But pt has complex home med list-->Plaquenil, seroquel, citalopram, hydrocodone -Concern for QT prolongation with current meds, will do ecg Left Knee infection -s/p knee replacement 03/2016 and debridement 01/2017 -Strep pna cx positive from knee, possibly seeded from pna episode -On Rocephin per ID - from ID following, from ortho following HTN -Cont home amlodipine Insomnia -Cont. seroquel DVT ppx -SCDs Hospital Course Summary Disclaimer: The visit summary below is not to be considered part of the above Progress Note.
[2017-02-14] MEDS: MULTI-VITAMIN + MINERAL TABLET PO SCH (09:45)
[2017-02-14] MEDS: HYDROXYCHLOROQUINE 200 MG TABLET PO SCH ×2 (09:45→17:29)
[2017-02-14] MEDS: CycloSPORINE 0.05% EYE DROPS 4ml EACH EYE SCH (09:50)
[2017-02-14] MEDS: ASPIRIN 81 MG CHEWABLE TABLET PO SCH ×2 (09:50→21:23)
[2017-02-14] MEDS: FOLIC ACID 1 MG TABLET PO SCH (09:50)
[2017-02-14] MEDS: FERROUS SULFATE 324 MG TABLET PO SCH (09:51)
[2017-02-14] MEDS: ASCORBIC ACID 500 MG TABLET PO SCH (09:51)
[2017-02-14] MEDS: FUROSEMIDE 20 MG TABLET PO SCH ×2 (09:51→14:49)
[2017-02-14] MEDS: SENNA + DOCUSATE TABLET PO SCH ×2 (09:51→21:24)
[2017-02-14] MEDS: POLYETHYL GLYCOL 3350 17gm PACKET PO SCH (09:52)
[2017-02-14] MEDS: FLUTICASONE NASAL SPRAY 50mcg EA NOSTRIL SCH (09:52)
--- NOTE | 2017-02-14 10:14 | Orthopedic Progress Note ---
Date: Subjective/Severity of Illness: Nona has no complaints, pain is controlled. She has been up with PT. No new labs at the time of rounding. Orthopedic Objective PO Vital signs: Temperature 98.7 F 02/14/17 07:22 Pulse Rate 90 02/14/17 07:22 Respiratory Rate 18 02/14/17 07:22 Blood Pressure 131/72 02/14/17 07:22 Pulse Oximetry 94 02/14/17 07:22 Height and Weight: Height 5 ft 5 in Weight 160 lb 14.999 oz Body Mass Index 27.4 - Constitutional General Appearance: Present: alert, orientated x3, cooperative, no acute distress - Respiratory Exam Present: non-labored - Cardiovascular Exam Present: pedal pulses intact - Extremities Exam Extremities: Present: pulses intact Comments: nonpainful ROM of the knee, erythema present, no drainage. - Knee Exam Knee Exam: Absent: painful ROM - Surgical Site Incision: clean, dry, intact, gil present, no drainage - Integumentary Exam Present: dry, intact, erythema - Lymphatic Lymphatic: Absent: adenopathy - Neurological Exam Present: no deficits. Absent: intact to light touch - Psychiatric Exam Present: alert - Labs Result Diagrams: 02/13/17 04:29 02/13/17 04:29 Abnormal lab results 02/13/17 Range/Units 04:23 C-Reactive Protein 35.1 H (0-9) MG/L H & H 02/13/17 Range/Units 04:29 Hgb 9.0 L D (12-16) GM/DL Hct 27.8 L D (36-46) % Orthopedic Assessment and Plan (1) Prosthetic joint infection Status: Acute Qualifiers: Encounter type: subsequent encounter Qualified Code(s): T84.50XD - Infection and inflammatory reaction due to unspecified internal joint prosthesis , subsequent encounter Assessment and Plan: new labs were ordered. continue present care. Hospital Course Summary Disclaimer: The visit summary below is not to be considered part of the above Progress Note. Hospital Course: 02/13/17 12:55 Admit as inpatient. Her is having to sit by the bed to keep her calm. Will start haldol scheduled and prn. Increase available Ativan. Infection could be playing a role but CRP has continued to trend down. Case d/w Drs. García and David. Both are consulted. Will restart ceftriaxone and dc Levaquin. Lack of sleep and/or pain control might be the biggest issue. [place] and iv morphine available. Home medications resumed. 02/14/17 -Plan Scheduled Haldol QID has helped with confusion and hallucinations. Continue on Rocephin IV for antimicrobial coverage. Levaquin was discontinued ( as this can cause encephalopathy) Continue with [place] for pain control. Monitor blood pressure- Currently on Norvasc and Lasix. Appreciated consultation by Dr García. monitor CRP which is trending down. Once medically improved consider PT/OT consult and ambulation with nursing staff to avoid weakness from acute illness Will recheck CBC, CRP and BMP today as ordered and planned for 10 am Discuss plan on care with attending, Dr Pierre.
[2017-02-14] MEDS: CEFTRIAXONE 2 GM in NS 100 ML IV SCH (12:34)
[2017-02-14] MEDS: CITALOPRAM 40 MG TABLET PO SCH (21:23)
[2017-02-14] MEDS: QUETIAPINE 200 MG TABLET PO SCH (21:23)
[2017-02-14] MEDS: AMLODIPINE 5 MG TABLET PO SCH (21:24)
[2017-02-14] MEDS: ESTRADIOL 0.01% VAGINAL CREAM 42.5gm VAGINAL SCH (21:25)
[2017-02-15] MEDS: NS 1,000 ML IV SCH ×2 (03:37→12:53)
[2017-02-15] MEDS: OMEPRAZOLE 20 MG CAPSULE PO SCH (06:38)
[2017-02-15] MEDS: ACETAMINOPHEN 500 MG TABLET PO PRN ×2 (06:38→18:29)
[2017-02-15] MEDS: ASPIRIN 81 MG CHEWABLE TABLET PO SCH ×2 (09:08→21:21)
[2017-02-15] MEDS: ASCORBIC ACID 500 MG TABLET PO SCH (09:09)
[2017-02-15] MEDS: FUROSEMIDE 20 MG TABLET PO SCH ×2 (09:09→15:04)
[2017-02-15] MEDS: HYDROXYCHLOROQUINE 200 MG TABLET PO SCH ×2 (09:09→17:14)
[2017-02-15] MEDS: SENNA + DOCUSATE TABLET PO SCH ×2 (09:09→21:23)
[2017-02-15] MEDS: FERROUS SULFATE 324 MG TABLET PO SCH (09:09)
[2017-02-15] MEDS: FOLIC ACID 1 MG TABLET PO SCH (09:09)
[2017-02-15] MEDS: MULTI-VITAMIN + MINERAL TABLET PO SCH (09:09)
[2017-02-15] MEDS: HALOPERIDOL 1 MG TABLET PO SCH (09:10)
[2017-02-15] MEDS: CycloSPORINE 0.05% EYE DROPS 4ml EACH EYE SCH (09:10)
[2017-02-15] MEDS: POLYETHYL GLYCOL 3350 17gm PACKET PO SCH (09:10)
[2017-02-15] MEDS: FLUTICASONE NASAL SPRAY 50mcg EA NOSTRIL SCH (09:11)
--- NOTE | 2017-02-15 09:27 | Orthopedic Progress Note ---
Date: Subjective/Severity of Illness: Nona has no complaints, pain is controlled. She is A&O X3 today. WBC count, CRP continue to improve. She is afebrile. Orthopedic Objective PO Vital signs: Temperature 97.0 F 02/15/17 08:00 Pulse Rate 88 02/15/17 08:00 Respiratory Rate 18 02/15/17 08:00 Blood Pressure 140/73 H 02/15/17 08:00 Pulse Oximetry 99 02/15/17 08:00 Height and Weight: Height 5 ft 5 in Weight 163 lb 2.273 oz Body Mass Index 27.4 - Constitutional General Appearance: Present: alert, orientated x3, cooperative, no acute distress - Respiratory Exam Present: non-labored - Cardiovascular Exam Present: pedal pulses intact - Extremities Exam Extremities: Present: pulses intact - Knee Exam Knee Exam: Absent: painful ROM - Surgical Site Incision: clean, dry, intact, gil present, no drainage (Their is one area in the proximal incision, raised area, no drainage, no obvious pustule.) - Integumentary Exam Present: dry, intact, erythema - Lymphatic Lymphatic: Absent: adenopathy - Neurological Exam Present: no deficits. Absent: intact to light touch - Psychiatric Exam Present: alert - Labs Result Diagrams: 02/15/17 04:01 02/15/17 04:01 Abnormal lab results 02/14/17 02/14/17 02/15/17 Range/Units 10:02 10:02 04:01 RBC 3.10 L (4.00-5.20) M/MM3 Hgb 9.3 L (12-16) GM/DL Hct 29.0 L (36-46) % Plt Count 636 H (130-400) T/MM3 MPV 8.1 L (9.4-12.4) UM3 Immature Gran % (Auto) 1.5 H (0.0-0.5) % Neut % (Auto) 78.3 H (33-66) % Lymph % (Auto) 10.5 L (23-45) % Rock % (Auto) (0-9.0) % Lymph # (Auto) 0.9 L (1-4.8) T/MM3 Rock # (Auto) (0-0.8) T/MM3 Abs Immat Gran (auto) 0.13 H (0.00-0.03) T/MM3 Potassium 3.3 L (3.6-5) MEQ/L Glucose 130 H (65-110) MG/DL ALT 57 H (9-52) U/L Alkaline Phosphatase 145 H (38-126) U/L C-Reactive Protein 39.1 H 20.6 H (0-9) MG/L Total Protein 6.0 L (6.3-8.2) G/DL Albumin 3.1 L (3.5-5.0) G/DL 02/15/17 Range/Units 04:01 RBC 2.92 L (4.00-5.20) M/MM3 Hgb 8.7 L (12-16) GM/DL Hct 27.5 L (36-46) % Plt Count 613 H (130-400) T/MM3 MPV 8.6 L (9.4-12.4) UM3 Immature Gran % (Auto) 1.2 H (0.0-0.5) % Neut % (Auto) 68.6 H (33-66) % Lymph % (Auto) 17.0 L (23-45) % Rock % (Auto) 10.8 H (0-9.0) % Lymph # (Auto) (1-4.8) T/MM3 [place] # (Auto) 0.9 H (0-0.8) T/MM3 Abs Immat Gran (auto) 0.10 H (0.00-0.03) T/MM3 Potassium (3.6-5) MEQ/L Glucose (65-110) MG/DL ALT (9-52) U/L Alkaline Phosphatase (38-126) U/L C-Reactive Protein (0-9) MG/L Total Protein (6.3-8.2) G/DL Albumin (3.5-5.0) G/DL H & H 02/13/17 02/14/17 02/15/17 Range/Units 04:29 10:02 04:01 Hgb 9.0 L D 9.3 L 8.7 L (12-16) GM/DL Hct 27.8 L D 29.0 L 27.5 L (36-46) % Orthopedic Assessment and Plan (1) Prosthetic joint infection Status: Acute Qualifiers: Encounter type: subsequent encounter Qualified Code(s): T84.50XD - Infection and inflammatory reaction due to unspecified internal joint prosthesis , subsequent encounter Assessment and Plan: Labs have improved as well as mental status. Continue current care. Clinically, I think the incision area looks a little more erythemic today. If things change repeat aspiration may be considered. Hospital Course Summary Disclaimer: The visit summary below is not to be considered part of the above Progress Note. Hospital Course: 02/13/17 12:55 Admit as inpatient. Her is having to sit by the bed to keep her calm. Will start haldol scheduled and prn. Increase available Ativan. Infection could be playing a role but CRP has continued to trend down. Case d/w Drs. García and David. Both are consulted. Will restart ceftriaxone and dc Levaquin. Lack of sleep and/or pain control might be the biggest issue. [place] and iv morphine available. Home medications resumed. 02/14/17 -Plan Scheduled Haldol QID has helped with confusion and hallucinations. Continue on Rocephin IV for antimicrobial coverage. Levaquin was discontinued ( as this can cause encephalopathy) Continue with [place] for pain control. Monitor blood pressure- Currently on Norvasc and Lasix. Appreciated consultation by Dr García. monitor CRP which is trending down. Once medically improved consider PT/OT consult and ambulation with nursing staff to avoid weakness from acute illness Will recheck CBC, CRP and BMP today as ordered and planned for 10 am Discuss plan on care with attending, Dr Pierer.
--- NOTE | 2017-02-15 11:34 | Progress Note ---
- Date 02/15/17 Subjective: Pt is alert and oriented x3. Reports she is feeling better. Denies any n/v/d, f/ c. Anxiety is better as well. Objective Vital signs: Temperature 97.0 F 02/15/17 08:00 Pulse Rate 88 02/15/17 08:00 Respiratory Rate 18 02/15/17 08:00 Blood Pressure 140/73 H 02/15/17 08:00 Pulse Oximetry 99 02/15/17 08:00 Height/Weight/BMI: Height 5 ft 5 in Weight 74 kg Body Mass Index 27.4 - Constitutional Present: no acute distress - Routine HEENT Exam Head: Present: normocephalic, atraumatic Eye: Present: EOMI ENT: Present: mucous membranes moist - Routine Respiratory Exam Present: CTA bilaterally. Absent: dyspnea - Routine Cardiovascular Exam Present: RRR, no murmur - Routine Abdominal Exam Present: soft, non distended, non tender - Routine Extremities Exam Present: no edema. Absent: cyanosis, clubbing - Routine Skin Exam Present: intact, dry. Absent: erythema - Routine Neurological Exam Present: alert, oriented X3 - Routine Psychiatric Exam Present: normal affect Results - Labs CBC & Chem 7: 02/15/17 04:01 02/15/17 04:01 Assessment and Plan (1) Rheumatoid arthritis Current visit: No Status: Acute (2) Hypertension Current visit: No Status: Acute (3) GERD (gastroesophageal reflux disease) Current visit: No Status: Acute (4) Prosthetic joint infection Current visit: No Status: Acute (5) Altered mental status Current visit: Yes Status: Acute Assessment and Plan: Delirium -Much improved -Unclear etiology, medication vs. infection? -Cont. to titrate Haldol down-->will change to daily today -basic labs, UDS, UA unremarkable, ecg with 430 qtc yesterday -Will try to clean out med list and minimize meds that could effect mentation -But pt has complex home med list-->Plaquenil, seroquel, citalopram, hydrocodone Left Knee infection -s/p knee replacement 03/2016 and debridement 01/2017 -Strep pna cx positive from knee, possibly seeded from pna episode -On Rocephin per ID - from ID following, from ortho following Normocytic Anemia -Hgb-->10.7-->9-->9.3-->8.7 -Likely 2/2 dilution and blood draws and underlying iron deficiency -On iron supplements, cont. to monitor -No active bleeding suspected Transaminitis -Mild, infection vs. meds -Will do liver US -Trending down HTN -Cont home amlodipine Insomnia -Cont. seroquel DVT ppx -SCDs Hospital Course Summary Disclaimer: The visit summary below is not to be considered part of the above Progress Note. Hospital Course: 02/13/17 12:55 Admit as inpatient. Her is having to sit by the bed to keep her calm. Will start haldol scheduled and prn. Increase available Ativan. Infection could be playing a role but CRP has continued to trend down. Case d/w Drs. García and David. Both are consulted. Will restart ceftriaxone and dc Levaquin. Lack of sleep and/or pain control might be the biggest issue. [place] and iv morphine available. Home medications resumed. 02/14/17 -Plan Scheduled Haldol QID has helped with confusion and hallucinations. Continue on Rocephin IV for antimicrobial coverage. Levaquin was discontinued ( as this can cause encephalopathy) Continue with [place] for pain control. Monitor blood pressure- Currently on Norvasc and Lasix. Appreciated consultation by Dr García. monitor CRP which is trending down. Once medically improved consider PT/OT consult and ambulation with nursing staff to avoid weakness from acute illness Will recheck CBC, CRP and BMP today as ordered and planned for 10 am Discuss plan on care with attending, Dr Pierre. 02/15/17 11:34 Pt doing well and has improved from admission. Delirium is mostly resolved although etiology still unclear. Will cont. to trend down haldol as pt is already on multiple meds that can prolong QT and cause sedation so it would be best not to send pt home on haldol. Ortho is following and knee infection is improving. Will encourage ambulation today and hope to target discharge in the next 1-2 days.
[2017-02-15] MEDS: CEFTRIAXONE 2 GM in NS 100 ML IV SCH (13:20)
[2017-02-15] MEDS: AMLODIPINE 5 MG TABLET PO SCH (21:21)
[2017-02-15] MEDS: QUETIAPINE 200 MG TABLET PO SCH (21:22)
[2017-02-15] MEDS: ESTRADIOL 0.01% VAGINAL CREAM 42.5gm VAGINAL SCH (21:23)
[2017-02-15] MEDS: CITALOPRAM 40 MG TABLET PO SCH (21:27)
[2017-02-15] MEDS: HYDROCODONE/APAP 7.5 MG/325 MG TABLET PO PRN (22:45)
[2017-02-16] MEDS: NS 1,000 ML IV SCH ×3 (00:11→22:01)
[2017-02-16] MEDS: OMEPRAZOLE 20 MG CAPSULE PO SCH (05:35)
[2017-02-16] MEDS ORDERED: HALOPERIDOL 1 MG TABLET PO SCH (09:00)
[2017-02-16] MEDS: ASPIRIN 81 MG CHEWABLE TABLET PO SCH ×2 (09:16→20:23)
[2017-02-16] MEDS: POLYETHYL GLYCOL 3350 17gm PACKET PO SCH (09:16)
[2017-02-16] MEDS: CycloSPORINE 0.05% EYE DROPS 4ml EACH EYE SCH (09:16)
[2017-02-16] MEDS: FUROSEMIDE 20 MG TABLET PO SCH ×2 (09:17→14:05)
[2017-02-16] MEDS: FOLIC ACID 1 MG TABLET PO SCH (09:17)
[2017-02-16] MEDS: SENNA + DOCUSATE TABLET PO SCH ×2 (09:17→20:25)
[2017-02-16] MEDS: FERROUS SULFATE 324 MG TABLET PO SCH (09:17)
[2017-02-16] MEDS: ASCORBIC ACID 500 MG TABLET PO SCH (09:17)
[2017-02-16] MEDS: MULTI-VITAMIN + MINERAL TABLET PO SCH (09:17)
[2017-02-16] MEDS: HYDROXYCHLOROQUINE 200 MG TABLET PO SCH ×2 (09:18→17:17)
[2017-02-16] MEDS: FLUTICASONE NASAL SPRAY 50mcg EA NOSTRIL SCH (09:27)
--- NOTE | 2017-02-16 09:56 | Progress Note ---
<Yareli Hagan D - Last Filed: 02/16/17 09:51> - Date 02/16/17 Subjective: Nona has cleared mentally. She and her Henrique have seen increasing redness, especially going down the incision. Her knee feels stiff at times. No fever/chills. No SOA. Occasionally has a headache, described as pressure to the back of her head. She's been ambulating in the halls. Appetite is ok; no n/v. BM yest. Objective Vital signs: Temperature 98.6 F 02/16/17 07:23 Pulse Rate 86 02/16/17 07:23 Respiratory Rate 16 02/16/17 07:23 Blood Pressure 144/79 H 02/16/17 07:23 Pulse Oximetry 96 02/16/17 07:23 Height/Weight/BMI: Height 1.65 m Weight 73.6 kg Body Mass Index 27.4 - Constitutional Present: no acute distress, well nourished, well developed, thin - Routine HEENT Exam Eye: Absent: conjunctival icterus ENT: Present: mucous membranes moist - Routine Respiratory Exam Present: CTA bilaterally - Routine Cardiovascular Exam Present: RRR, S1, S2 - Routine Abdominal Exam Present: soft, normoactive bowel sounds - Routine Extremities Exam Present: edema (trace left leg), joint swelling (left knee) - Routine Musculoskeletal Exam Musculoskeletal: Present: other (left knee - effusion; erythema reportedly spreading, now to distal end of incision; there is also a new area of soft swelling to incision ie abscess) - Routine Skin Exam Present: dry, warm - Routine Neurological Exam Present: alert, oriented X3 - Routine Psychiatric Exam Present: normal affect, normal thought process, cooperative Results - Labs CBC & Chem 7: 02/16/17 04:26 02/16/17 04:26 Assessment and Plan (1) Rheumatoid arthritis Current visit: No Status: Acute (2) Hypertension Current visit: No Status: Acute (3) GERD (gastroesophageal reflux disease) Current visit: No Status: Acute (4) Prosthetic joint infection Current visit: No Status: Acute (5) Altered mental status Current visit: Yes Status: Acute Assessment and Plan: Delirium -Much improved -Unclear etiology, medication vs. infection vs. sleep deprivation -Cont. to titrate Haldol down-->will change to daily today -basic labs, UDS, UA unremarkable, ecg with 430 qtc yesterday -Will try to clean out med list and minimize meds that could effect mentation -But pt has complex home med list-->Plaquenil, seroquel, citalopram, hydrocodone Left Knee infection -increased erythema 02/16/17 -s/p knee replacement 03/2016 and debridement 01/2017 -Strep pna cx positive from knee, possibly seeded from pna episode -On Rocephin per ID - from ID following, from ortho following -WBC nml; CRP trending down; ESR pending -d/w Dr. Hernandez - recommending either repeat aspiration vs removal of hardware + spacer Normocytic Anemia -Hgb-->10.7-->9-->9.3-->8.7 -Likely 2/2 dilution and blood draws and underlying iron deficiency -On iron supplements, cont. to monitor -No active bleeding suspected Thrombocytosis, reactive -822 on admit; decreased to 613 on 02/15 --> 663 02/16 Transaminitis -Mild, improving; infection vs. meds -liver US pending -Trending down HTN -Cont home amlodipine Insomnia -Cont. seroquel DVT ppx -SCDs DVT Prophylaxis: SCD's GI Prophylaxis: other (Prilosec) Resuscitation Status: Full Code Hospital Course Summary Disclaimer: The visit summary below is not to be considered part of the above Progress Note. Hospital Course: 02/13/17 12:55 Admit as inpatient. Her is having to sit by the bed to keep her calm. Will start haldol scheduled and prn. Increase available Ativan. Infection could be playing a role but CRP has continued to trend down. Case d/w Drs. García and David. Both are consulted. Will restart ceftriaxone and dc Levaquin. Lack of sleep and/or pain control might be the biggest issue. [place] and iv morphine available. Home medications resumed. 02/14/17 -Plan Scheduled Haldol QID has helped with confusion and hallucinations. Continue on Rocephin IV for antimicrobial coverage. Levaquin was discontinued ( as this can cause encephalopathy) Continue with [place] for pain control. Monitor blood pressure- Currently on Norvasc and Lasix. Appreciated consultation by Dr García. monitor CRP which is trending down. Once medically improved consider PT/OT consult and ambulation with nursing staff to avoid weakness from acute illness Will recheck CBC, CRP and BMP today as ordered and planned for 10 am Discuss plan on care with attending, Dr Pierre. 02/15/17 11:34 Pt doing well and has improved from admission. Delirium is mostly resolved although etiology still unclear. Will cont. to trend down haldol as pt is already on multiple meds that can prolong QT and cause sedation so it would be best not to send pt home on haldol. Ortho is following and knee infection is improving. Will encourage ambulation today and hope to target discharge in the next 1-2 days. 02/16/17 10:06 Delirium much improved; no other source for infection. Could be r/t sleep deprivation vs med effect. Increased erythema to left knee, though WBC nml and CRP trending down. Plt still elevated. <Sumit Pierre - Last Filed: 02/16/17 18:00> - Date 02/16/17 Objective Vital signs: Temperature 98.0 F 02/16/17 15:00 Pulse Rate 84 02/16/17 15:00 Respiratory Rate 16 02/16/17 15:00 Blood Pressure 133/82 02/16/17 15:00 Pulse Oximetry 99 02/16/17 15:00 Height/Weight/BMI: Height 5 ft 5 in Weight 73.6 kg Body Mass Index 27.4 Results - Labs CBC & Chem 7: 02/16/17 04:26 02/16/17 04:26 Microbiology Results: Microbiology 02/16/17 16:00 Aspirate, Left Knee Gram Stain - Final 02/16/17 16:00 Aspirate, Left Knee Body Fluid Culture - Preliminary Culture Initiated - Results Pending Assessment and Plan (1) Rheumatoid arthritis Current visit: No Status: Acute (2) Hypertension Current visit: No Status: Acute (3) GERD (gastroesophageal reflux disease) Current visit: No Status: Acute (4) Prosthetic joint infection Current visit: No Status: Acute (5) Altered mental status Current visit: Yes Status: Acute Assessment and Plan: S: Pt reports knee is a bit more swollen. Denies any n/v/d, f/c, cp or sob. O: Gen: alert and oriented Cards: RRR without murmurs Lungs: CTAB, no wheezes Abd: not distended, soft Skin: dry, intact A/P: Pt's delirium has resolved but the knee doesn't seem to be getting better. Will await recs from and on further management of knee infection. Hospital Course Summary Disclaimer: The visit summary below is not to be considered part of the above Progress Note.
--- NOTE | 2017-02-16 09:57 | Infectious Disease Consult ---
Infectious Disease Consult Date of Consultation: 02/16/17 Requesting Physician: Rikki Villar IV Reason for Consultation: antibiotic recs History of Present Illness: Mrs. Armstrong is a 66 y/o woman who was recently admitted with septic L TKA. She was taken to the OR and underwent I&D on 02/14. Synovial fluid cultures grew PCN-sensitive S. pneumoniae. Blood cultures were negative. She had a subtle infiltrate on CXR. Her antibiotics were narrowed to ceftriaxone. She had some purulence expressed from her incision on 02/08. Her knee was aspirated again on 02/09 and the WBCs had decreased from 111,000 to 330. RBCs had increased from 30,000 to 371,000. The gram stain and culture were negative. She was discharge home on 02/11. She was brought back to the ED by her on 02/12/17 for confusion. She was noted to have leukocytosis of 18K and platelets were 800K. UA, CXR and CT head were negative. Blood cultures were negative. She was admitted. I discussed her case with Dr. Villar last Thursday. The ceftriaxone was changed to levaquin, but I recommended returning to ceftriaxone due to concern that levaquin would exacerbate delirium. She also didn't sleep for about 3 nights per report. Her meds have been looked at closely by the hospitalists. Her knee incision is still red, and her thinks that the redness is spreading. Her mental status appears back to baseline. She hasn't had fever, but she actually never had fever during the last hospitalization. She's had a couple of temps of 96. She is able to walk on her knee. Medications Home Medications Medication Instructions Recorded Confirmed Type Citalopram Hydrobromide 40 mg PO HS #0 10/12/09 02/12/17 History [Citalopram HBr] Hydroxychloroquine [Plaquenil] 200 mg PO BID #0 10/12/09 02/12/17 History Cetirizine HCl 5 mg PO HS #0 03/13/11 02/12/17 History Amlodipine Besylate 5 mg PO HS #0 tab 04/17/16 02/12/17 History Folic Acid 1 mg PO DAILY #0 tab 04/17/16 02/12/17 History Multivitamin [Multi-Day Vitamins] 1 tab PO WS #0 tab 04/17/16 02/12/17 History cycloSPORINE [Restasis] 1 drop BOTH EYES DAILY #0 drop 04/17/16 02/12/17 History Estradiol Vag Cream [Estrace Vag 1 applicatio VG HS 10/03/16 02/12/17 History Cream] Fluticasone Nasal [place] [Flonase] 2 spray EA NOSTRIL DAILY 10/03/16 02/12/17 History Omeprazole 20 mg PO NOON 10/03/16 02/12/17 History Quetiapine [SEROquel] 200 mg PO HS 10/03/16 02/12/17 History Allergies Allergy/AdvReac Type Severity Reaction Status Date / Time No Known Drug Allergies Allergy Unknown Verified 02/12/17 17:12 [facility] Patient Stated Medical History Cerebrovascular Accident No Paralysis No Seizures No Syncope No Angina No Cardiac Arrhythmia No Congestive Heart Failure No Coronary Artery Disease No Heart Murmur No Hypertension Yes Hypotension No Myocardial Infarction No Rheumatic Fever No Valvular Heart Disease No Other Cardiology No Asthma No Bronchitis No Chronic Obstructive Pulmonary No Disease (COPD) Pneumonia No Pulmonary Edema No Pulmonary Embolism No Sleep Apnea No Tuberculosis No Other Respiratory No Diabetes Mellitus Type 1 No Diabetes Mellitus Type 2 No Cirrhosis No Gastroesophageal Reflux No Disease Gastrointestinal Bleeding No Hepatitis No Hiatal Hernia No Obstructive Bowel No Ulcer No Other GI No Hx Renal Disease No Anemia Yes Osteoarthritis No Other Musculoskeletal No Anesthesia Reactions No Blood Transfusions No Chemotherapy No Malignant Hyperthermia No Other No Depression No Post Menopausal Yes Now No Clinic Medical History (Last Reviewed 12/18/16 @ 16:53 by Latonia Guerra) Knee pain, left (Acute Medical) Rheumatoid arthritis (Acute Medical) Hypertension (Acute Medical) GERD (gastroesophageal reflux disease) (Acute Medical) Prosthetic joint infection (Acute Medical) Altered mental status (Acute Medical) Adult idiopathic generalized osteoporosis (Acute Medical) Anxiety (Acute Medical) Depression (Acute Medical) Discoid lupus (Acute Medical) GERD (gastroesophageal reflux disease) (Acute Medical) Hypertension (Acute Medical) Osteoarthritis (Acute Medical) Headache (Inactive Medical) Hypertension (Inactive Medical) Surgical History: Bilateral breast augmentation, Age 45. TKA, left 2016. Bilateral exchange of saline implants to [place] [employer] breast implants 395 cc tall height, moderate plus profile 10/06/2016 Family History: Family History (Last Reviewed 12/18/16 @ 16:53 by Latonia Guerra) Father Hypertension Coronary artery disease Stroke Paternal Grandmother Diabetes Maternal Grandmother Breast cancer Mother Rheumatoid arthritis Osteoporosis Hypertension Hypercholesterolemia Heart disease Maternal Aunt Breast cancer Maternal Uncle Diabetes - Social History Smoking status: Never smoker Housing: house Household members: spouse Review of Systems All systems PM: 10-point ROS was reviewed, no additional remarkable complaints except - Constitutional Constitutional: Present: headache(s) (mild, improved). Absent: chills, fever(s) - Respiratory Respiratory: Absent: cough, dyspnea - Gastrointestinal Gastrointestinal: Absent: diarrhea, nausea, vomiting - Genitourinary Genitourinary: Absent: dysuria - Musculoskeletal Musculoskeletal: Present: joint swelling (L knee), stiffness (L knee) - Integumentary/Breasts Integumentary: Present: erythema (L knee). Absent: rash - Neurological Neurological: Present: confusion (now improved) Exam Vital Signs: Temperature 98.6 F 02/16/17 07:23 Pulse Rate 86 02/16/17 07:23 Respiratory Rate 16 02/16/17 07:23 Blood Pressure 144/79 H 02/16/17 07:23 Pulse Oximetry 96 02/16/17 07:23 Height/Weight/BMI: Height 1.65 m Weight 73.6 kg Body Mass Index 27.4 - Constitutional Present: no acute distress, well nourished, well developed - Routine HEENT Exam Head: Present: normocephalic, atraumatic Eye: Present: EOMI, PERRL ENT: Present: mucous membranes moist, oropharynx clear, dentition normal - Routine Neck Exam Present: supple - Routine Respiratory Exam Present: CTA bilaterally - Routine Cardiovascular Exam Present: RRR. Absent: murmur - Routine Abdominal Exam Present: soft, normoactive bowel sounds, non distended. Absent: tenderness - Routine Extremities Exam Present: edema (trace LLE). Absent: cyanosis, clubbing Comments: RUE PICC site ok - Detailed Lower Extremity Exam Knee: Left joint effusion, Left erythema, Left warmth, Left decreased ROM ( slight) - Routine Skin Exam Present: erythema (over L knee incision). Absent: rash Comments: L knee incision appears intact, but there is an area of localized swelling along the incision with erythema. - Routine Neurological Exam Present: alert, oriented X3, CN II-XII intact. Absent: motor deficit - Routine Psychiatric Exam Present: normal affect Results - Labs CBC & Chem 7: 02/16/17 04:26 11/20/17 04:26 Impression: AMS/delirium, now improved. Etiology unclear - ? lack of sleep +/- meds, infection, etc. Prosthetic joint infection L knee, s/p I&D with spacer exchange, placement of antibiotic beads 02/04/17, cultures with S. pneumoniae. Leukocytosis, improving RA on plaquenil/MTX HTN GERD Recommendation: Recommend continuing with the Ceftriaxone. Recommend repeat aspiration of the knee vs surgical I&D with explantation. Discussed with Dr. García, and Dr. Solorzano.
[2017-02-16] MEDS: CEFTRIAXONE 2 GM in NS 100 ML IV SCH (12:59)
--- NOTE | 2017-02-16 14:00 | Ultrasound Report ---
EXAM: US liver LOCATION OF DICTATION: [facility] [place] COMPARISON: None available. HISTORY: Transaminitis FINDINGS: PANCREAS: Unremarkable. What is able to be seen of the head and body of the pancreas appears unremarkable. The tail of the pancreas is not well visualized and is not able to be evaluated. AORTA/IVC: Unremarkable. No evidence for aneurysm. LIVER: 13.4 cm in length. Normal in echotexture, size, and appearance. No intrahepatic ductal dilatation. No lesions are seen. The main portal vein has normal color Doppler flow and direction. GALLBLADDER: Unremarkable. No evidence for gallstones, gallbladder wall thickening, or pericholecystic fluid. The patient is not tender over the gallbladder with transducer pressure. CBD: Unremarkable. Normal in caliber. No intra or extrahepatic ductal dilatation. Normal for age. . 6.1 mm. RIGHT KIDNEY: Unremarkable. Normal in echotexture, size, appearance, and color Doppler flow without hydronephrosis. 10.1 x 3.9 x 5.4 cm. COMMENTS: None. IMPRESSION: 1. Unremarkable exam without evidence for cholelithiasis or other signs of acute or chronic cholecystitis. 2. Unremarkable appearance to the liver. .
[2017-02-16] MEDS: ACETAMINOPHEN 500 MG TABLET PO PRN (14:05)
[2017-02-16] MEDS: HYDROCODONE/APAP 7.5 MG/325 MG TABLET PO PRN (20:23)
[2017-02-16] MEDS: AMLODIPINE 5 MG TABLET PO SCH (20:25)
[2017-02-16] MEDS: ESTRADIOL 0.01% VAGINAL CREAM 42.5gm VAGINAL SCH (20:25)
[2017-02-16] MEDS: CITALOPRAM 40 MG TABLET PO SCH (20:25)
[2017-02-16] MEDS: QUETIAPINE 200 MG TABLET PO SCH (20:26)
[2017-02-17] MEDS: ACETAMINOPHEN 500 MG TABLET PO PRN ×2 (01:01→09:52)
[2017-02-17] MEDS: OMEPRAZOLE 20 MG CAPSULE PO SCH (06:22)
--- NOTE | 2017-02-17 07:09 | Operative Note ---
Orthopedic Procedures - Joint Aspiration/Injection Joint Aspiration/Injection 1 Side of body: left Joint aspirated: knee (superficial to capsule) Skin prep: Chlorhexidine Local anesthesia used: other (ethyl chloride spray) Needle size used: 18G Fluid obtained: bloody Patient tolerated procedure: well Complications: none Additional comments: Aspirate was not deep to capsule.
--- NOTE | 2017-02-17 07:18 | Orthopedic Progress Note ---
Date: Subjective/Severity of Illness: Nona was seen yesterday for concerns of recurrent infection in her L TKA. Her WBC and CRP have steadily been improving and she is afebrile. However, the wound has a concerning appearance and there is localized fluid in the SQ tissues with mild erythema. Dr García aspirated this SQ fluid and sent it for gram stain, cell count and C&S. The gram stain showed GM pos cocci in pairs. Culture is still pending. The synovial fluid was not tested with this last aspirate. Orthopedic Objective PO Vital signs: Temperature 97.1 F 02/17/17 00:00 Pulse Rate 82 02/17/17 00:00 Respiratory Rate 16 02/17/17 00:00 Blood Pressure 156/82 H 02/17/17 00:00 Pulse Oximetry 95 02/17/17 00:00 Height and Weight: Height 5 ft 5 in Weight 162 lb 4.163 oz Body Mass Index 27.4 - Constitutional General Appearance: Present: alert, orientated x3, cooperative, no acute distress - Respiratory Exam Present: non-labored - Cardiovascular Exam Present: pedal pulses intact - Extremities Exam Extremities: Present: pulses intact - Knee Exam Knee Exam: Absent: painful ROM - Surgical Site Incision: clean, dry, intact, gil present, erythema (Mild), no drainage ( Their is one area in the proximal incision, raised area, no drainage, no obvious pustule.), other (Localized fluid collection in SQ tissues.) - Integumentary Exam Present: dry, intact, erythema - Neurological Exam Present: no deficits - Psychiatric Exam Present: alert - Labs Result Diagrams: 02/17/17 04:19 02/17/17 04:19 Abnormal lab results 02/17/17 02/17/17 Range/Units 04:19 04:19 RBC 2.98 L (4.00-5.20) M/MM3 Hgb 9.0 L (12-16) GM/DL Hct 27.8 L (36-46) % Plt Count 646 H (130-400) T/MM3 MPV 8.5 L (9.4-12.4) UM3 Immature Gran % (Auto) 0.8 H (0.0-0.5) % Neut % (Auto) 68.5 H (33-66) % Lymph % (Auto) 19.8 L (23-45) % [place] % (Auto) 9.4 H (0-9.0) % Abs Immat Gran (auto) 0.06 H (0.00-0.03) T/MM3 Potassium 3.4 L (3.6-5) MEQ/L AST 40 H (14-36) U/L ALT 56 H (9-52) U/L Alkaline Phosphatase 148 H (38-126) U/L C-Reactive Protein 24.3 H (0-9) MG/L Albumin 3.4 L (3.5-5.0) G/DL H & H 02/13/17 02/14/17 02/15/17 Range/Units 04:29 10:02 04:01 Hgb 9.0 L D 9.3 L 8.7 L (12-16) GM/DL Hct 27.8 L D 29.0 L 27.5 L (36-46) % 02/16/17 02/17/17 Range/Units 04:26 04:19 Hgb 9.1 L 9.0 L (12-16) GM/DL Hct 28.6 L 27.8 L (36-46) % Orthopedic Assessment and Plan (1) Prosthetic joint infection Status: Acute Qualifiers: Encounter type: subsequent encounter Qualified Code(s): T84.50XD - Infection and inflammatory reaction due to unspecified internal joint prosthesis , subsequent encounter Assessment and Plan: GM positive cocci in aspirated SQ fluid collection. C&S still pending. Will plan repeat I&D with possible spacer exchange on 02/17/17. Dr García will discuss the procedure, risk and possible complications with Nona. Clear liquids after midnight and NPO after 10AM. Hospital Course Summary Disclaimer: The visit summary below is not to be considered part of the above Progress Note. Hospital Course: 02/13/17 12:55 Admit as inpatient. Her is having to sit by the bed to keep her calm. Will start haldol scheduled and prn. Increase available Ativan. Infection could be playing a role but CRP has continued to trend down. Case d/w Drs. García and David. Both are consulted. Will restart ceftriaxone and dc Levaquin. Lack of sleep and/or pain control might be the biggest issue. [place] and iv morphine available. Home medications resumed. 02/14/17 -Plan Scheduled Haldol QID has helped with confusion and hallucinations. Continue on Rocephin IV for antimicrobial coverage. Levaquin was discontinued ( as this can cause encephalopathy) Continue with [place] for pain control. Monitor blood pressure- Currently on Norvasc and Lasix. Appreciated consultation by Dr García. monitor CRP which is trending down. Once medically improved consider PT/OT consult and ambulation with nursing staff to avoid weakness from acute illness Will recheck CBC, CRP and BMP today as ordered and planned for 10 am Discuss plan on care with attending, Dr Pierre. 02/15/17 11:34 Pt doing well and has improved from admission. Delirium is mostly resolved although etiology still unclear. Will cont. to trend down haldol as pt is already on multiple meds that can prolong QT and cause sedation so it would be best not to send pt home on haldol. Ortho is following and knee infection is improving. Will encourage ambulation today and hope to target discharge in the next 1-2 days. 02/16/17 10:06 Delirium much improved; no other source for infection. Could be r/t sleep deprivation vs med effect. Increased erythema to left knee, though WBC nml and CRP trending down. Plt still elevated.
[2017-02-17] MEDS: FERROUS SULFATE 324 MG TABLET PO SCH (08:20)
[2017-02-17] MEDS: SENNA + DOCUSATE TABLET PO SCH ×2 (08:20→20:27)
[2017-02-17] MEDS: MULTI-VITAMIN + MINERAL TABLET PO SCH (08:20)
[2017-02-17] MEDS: FOLIC ACID 1 MG TABLET PO SCH (08:21)
[2017-02-17] MEDS: CycloSPORINE 0.05% EYE DROPS 4ml EACH EYE SCH (08:21)
[2017-02-17] MEDS: ASPIRIN 81 MG CHEWABLE TABLET PO SCH ×2 (08:21→20:27)
[2017-02-17] MEDS: HYDROXYCHLOROQUINE 200 MG TABLET PO SCH ×2 (08:21→20:53)
[2017-02-17] MEDS: ASCORBIC ACID 500 MG TABLET PO SCH (08:21)
[2017-02-17] MEDS: POLYETHYL GLYCOL 3350 17gm PACKET PO SCH (08:22)
[2017-02-17] MEDS: FLUTICASONE NASAL SPRAY 50mcg EA NOSTRIL SCH (08:27)
[2017-02-17] MEDS: FUROSEMIDE 20 MG TABLET PO SCH ×2 (08:45→16:30)
[2017-02-17] MEDS: NS 1,000 ML IV SCH ×2 (08:46→18:54)
[2017-02-17] MEDS: CEFTRIAXONE 2 GM in NS 100 ML IV SCH (11:45)
--- NOTE | 2017-02-17 11:59 | Progress Note ---
<Puja Gonsalves V - Last Filed: 02/17/17 11:49> - Date 02/17/17 Subjective: Nona is seen today in follow up. She has been up in the winkler today and ambulating several times. She does continue to have knee pain and notes that the erythema and warmth is more. Her cognition continues to improve and feels that she is at baseline. Appetite is good no difficulty with urination or bowel movements. Objective Vital signs: Temperature 96.4 F L 02/17/17 08:00 Pulse Rate 83 02/17/17 08:00 Respiratory Rate 16 02/17/17 08:00 Blood Pressure 148/88 H 02/17/17 08:00 Pulse Oximetry 96 02/17/17 08:00 Height/Weight/BMI: Height 1.65 m Weight 74.3 kg Body Mass Index 27.4 - Constitutional Present: no acute distress, well nourished, well developed - Routine HEENT Exam Eye: Present: EOMI ENT: Present: mucous membranes moist, dentition normal - Routine Respiratory Exam Present: CTA bilaterally. Absent: wheezes - Routine Cardiovascular Exam Present: RRR, S1, S2. Absent: murmur - Routine Abdominal Exam Present: soft, normoactive bowel sounds, non distended. Absent: tenderness - Routine Extremities Exam Present: pulses intact Comments: Knee erythema - Routine Skin Exam Present: intact, dry, warm - Routine Neurological Exam Present: alert, oriented X3, CN II-XII intact - Routine Lymphatic Exam Lymphatic: Absent: adenopathy - Routine Psychiatric Exam Present: cooperative Results - Labs CBC & Chem 7: 02/17/17 04:19 02/17/17 04:19 Microbiology Results: Microbiology 02/16/17 16:00 Aspirate, Left Knee Gram Stain - Final 02/16/17 16:00 Aspirate, Left Knee Body Fluid Culture - Preliminary Culture Initiated - Results Pending Assessment and Plan (1) Rheumatoid arthritis Current visit: No Status: Acute (2) Hypertension Current visit: No Status: Acute (3) GERD (gastroesophageal reflux disease) Current visit: No Status: Acute (4) Prosthetic joint infection Current visit: No Status: Acute (5) Altered mental status Current visit: Yes Status: Acute Assessment and Plan: Impression Left knee infection Delirium- Resolved Normocytic Anemia Thrombocytosis- ? Reactive Transaminitis HTN Insomnia Plan Delirium overall appears to be resolved. Exact etiology is unclear. Could be multifactorial including medications versus infection. Haldol discontinued. Left knee does reveal continued redness with warmth. Planning for washout by orthopedic team this afternoon. Continue on Rocephin 2 grams IV daily Patient has been followed by Dr. Hernandez with infectious disease. Continue to monitor blood pressure, slightly elevated overnight, continue on Norvasc, and Lasix. Mild Hypokalemia, Continue with PO replacement Thrombocytosis - possible reactive as well as transaminitis. Will continue to follow Fe Weinstein for bowel motivation Discuss further plan of care with attending, Dr Pierre Hospital Course Summary Disclaimer: The visit summary below is not to be considered part of the above Progress Note. Hospital Course: 02/13/17 12:55 Admit as inpatient. Her is having to sit by the bed to keep her calm. Will start haldol scheduled and prn. Increase available Ativan. Infection could be playing a role but CRP has continued to trend down. Case d/w Drs. García and David. Both are consulted. Will restart ceftriaxone and dc Levaquin. Lack of sleep and/or pain control might be the biggest issue. Beecher and iv morphine available. Home medications resumed. 02/14/17 -Plan Scheduled Haldol QID has helped with confusion and hallucinations. Continue on Rocephin IV for antimicrobial coverage. Levaquin was discontinued ( as this can cause encephalopathy) Continue with Beecher for pain control. Monitor blood pressure- Currently on Norvasc and Lasix. Appreciated consultation by Dr García. monitor CRP which is trending down. Once medically improved consider PT/OT consult and ambulation with nursing staff to avoid weakness from acute illness Will recheck CBC, CRP and BMP today as ordered and planned for 10 am Discuss plan on care with attending, Dr Pierre. 02/15/17 11:34 Pt doing well and has improved from admission. Delirium is mostly resolved although etiology still unclear. Will cont. to trend down haldol as pt is already on multiple meds that can prolong QT and cause sedation so it would be best not to send pt home on haldol. Ortho is following and knee infection is improving. Will encourage ambulation today and hope to target discharge in the next 1-2 days. 02/16/17 10:06 Delirium much improved; no other source for infection. Could be r/t sleep deprivation vs med effect. Increased erythema to left knee, though WBC nml and CRP trending down. Plt still elevated. 02/17/17 Plan Delirium overall appears to be resolved. Exact etiology is unclear. Could be multifactorial including medications versus infection. Haldol discontinued. Left knee does reveal continued redness with warmth. Planning for washout by orthopedic team this afternoon. Continue on Rocephin 2 grams IV daily Patient has been followed by Dr. Hernandez with infectious disease. Continue to monitor blood pressure, slightly elevated overnight, continue on Norvasc, and Lasix. Mild Hypokalemia, Continue with PO replacement Thrombocytosis - possible reactive as well as transaminitis. Will continue to follow Senagnes Miralax for bowel motivation Discuss further plan of care with attending, Dr Pierre <Sumit Pierre - Last Filed: 02/17/17 15:12> - Date 02/17/17 Objective Vital signs: Temperature 98.2 F 02/17/17 12:20 Pulse Rate 84 02/17/17 12:38 Respiratory Rate 20 02/17/17 12:20 Blood Pressure 138/74 02/17/17 12:42 Pulse Oximetry 99 02/17/17 12:20 Height/Weight/BMI: Height 5 ft 5 in Weight 74.3 kg Body Mass Index 27.4 Results - Labs CBC & Chem 7: 02/17/17 04:19 02/17/17 04:19 Microbiology Results: Microbiology 02/16/17 16:00 Aspirate, Left Knee Gram Stain - Final 02/16/17 16:00 Aspirate, Left Knee Body Fluid Culture - Preliminary Culture Initiated - Results Pending Assessment and Plan (1) Rheumatoid arthritis Current visit: No Status: Acute (2) Hypertension Current visit: No Status: Acute (3) GERD (gastroesophageal reflux disease) Current visit: No Status: Acute (4) Prosthetic joint infection Current visit: No Status: Acute (5) Altered mental status Current visit: Yes Status: Acute Assessment and Plan: S: Pt reported feeling well overall except her knee is getting more swollen and painful. Pt denies any f/c, n/v/d, cp or sob. O: Gen: alert and oriented Cards: RRR without murmurs Lung: CTAB, no wheezes Ext: Right knee swollen, erythematous and warm A/P: Pt's mentation is back to baseline. Haldol was dc'd. Pt's infection in the knee seems to be getting worse. Ortho planning on taking her back to the OR. Will cont. with the same abx per discussion with ID yesterday. Hospital Course Summary Disclaimer: The visit summary below is not to be considered part of the above Progress Note.
--- NOTE | 2017-02-17 14:23 | Anesthesia Preoperative Report ---
Anesthesia Preoperative Record - Date and Time Date: 02/17/17 Preoperative Diagnosis: encephalopathy Proposed Procedure: I&D of left knee possible spacer exchange NPO Since Date: 02/17/17 NPO Since Time: 10:00 (Ricky) Allergies/Adverse Reactions: Allergies Allergy/AdvReac Type Severity Reaction Status Date / Time No Known Drug Allergies Allergy Unknown Verified 02/12/17 17:12 - Vital Signs Vital Signs: Temperature 98.2 F 02/17/17 12:20 Pulse Rate 84 02/17/17 12:38 Respiratory Rate 20 02/17/17 12:20 Blood Pressure 138/74 02/17/17 12:42 Pulse Oximetry 99 02/17/17 12:20 Height and Weight: Height 1.65 m Weight 74.3 kg Body Mass Index 27.4 - Medications Inpatient Medications: Current Medications Acetaminophen (Tylenol) 500 mg PO Q6H PRN PRN Reason: Fever Last Admin: 02/17/17 09:52 Dose: 500 mg Hydrocodone Bitart/Acetaminophen ([place] 7.5/325) 1 - 2 tab PO Q6H PRN PRN Reason: Pain Last Admin: 02/16/17 20:23 Dose: 1 tab Amlodipine Besylate (Norvasc) 5 mg PO [facility] Last Admin: 02/16/17 20:25 Dose: 5 mg Ascorbic Acid (Vitamin C) 500 mg PO [facility] Last Admin: 02/17/17 08:21 Dose: 500 mg Aspirin (Asa) 81 mg PO BID [facility] Last Admin: 02/17/17 08:21 Dose: 81 mg Citalopram Hydrobromide (Celexa) 40 mg PO [facility] Last Admin: 02/16/17 20:25 Dose: 40 mg Cyclosporine (Restasis) 1 drop EACH EYE DAILY [facility] Last Admin: 02/17/17 08:21 Dose: 1 drop Docusate Sodium (Colace) 100 mg PO BID PRN PRN Reason: Constipation /Stool softening Estradiol (Estrace Vag Cream) 1 applic [facility] Last Admin: 02/16/17 20:25 Dose: Not Given Ferrous Sulfate (Feosol) 324 mg PO [facility] Last Admin: 02/17/17 08:20 Dose: 324 mg Fluticasone Propionate (Flonase) 2 spray EA NOSTRIL DAILY [facility] Last Admin: 02/17/17 08:27 Dose: 2 spray Folic Acid (Folate) 1 mg PO DAILY [facility] Last Admin: 02/17/17 08:21 Dose: 1 mg Furosemide (Lasix) 20 mg PO 0900,1500 [facility] Last Admin: 02/17/17 08:45 Dose: 20 mg Hydroxychloroquine Sulfate (Plaquenil) 200 mg PO BIDWM [facility] Last Admin: 02/17/17 08:21 Dose: 200 mg Sodium Chloride (Normal Saline) 1,000 mls @ 100 mls/hr IV .Q10H [facility] Last Infusion: 02/17/17 12:15 Dose: 100 mls/hr Ceftriaxone Sodium 2 gm/ (Sodium Chloride) 100 mls @ 200 mls/hr IV Q24H [facility] Last Infusion: 02/17/17 12:15 Dose: Infused Multivitamins/Minerals (Therapeutic - M) 1 tab PO DAILY [facility] Last Admin: 02/17/17 08:20 Dose: 1 tab Omeprazole (Prilosec) 20 mg PO ACB [facility] Last Admin: 02/17/17 06:22 Dose: 20 mg Ondansetron HCl (Zofran) 4 mg IVP Q6H PRN PRN Reason: Nausea &/or vomiting Polyethylene Glycol (Miralax) 17 gm PO DAILY [facility] Last Admin: 02/17/17 08:22 Dose: 17 gm Potassium Chloride (K-Dur) 20 meq PO WB [facility] Last Admin: 02/17/17 08:20 Dose: 20 meq Quetiapine Fumarate (Seroquel) 200 mg PO HS [facility] Last Admin: 02/16/17 20:26 Dose: 200 mg Senna/Docusate Sodium (Senna Plus Tablet) 1 tab PO BID [facility] Last Admin: 02/17/17 08:20 Dose: 1 tab Home Medications: Home Medications Medication Instructions Recorded Confirmed Type Citalopram Hydrobromide 40 mg PO HS #0 10/12/09 02/12/17 History [Citalopram HBr] Hydroxychloroquine [Plaquenil] 200 mg PO BID #0 10/12/09 02/12/17 History Cetirizine HCl 5 mg PO HS #0 03/13/11 02/12/17 History Amlodipine Besylate 5 mg PO HS #0 tab 04/17/16 02/12/17 History Folic Acid 1 mg PO DAILY #0 tab 04/17/16 02/12/17 History Multivitamin [Multi-Day Vitamins] 1 tab PO WS #0 tab 04/17/16 02/12/17 History cycloSPORINE [Restasis] 1 drop BOTH EYES DAILY #0 drop 04/17/16 02/12/17 History Estradiol Vag Cream [Estrace Vag 1 applicatio VG HS 10/03/16 02/12/17 History Cream] Fluticasone Nasal [place] [Flonase] 2 spray EA NOSTRIL DAILY 10/03/16 02/12/17 History Omeprazole 20 mg PO NOON 10/03/16 02/12/17 History Quetiapine [SEROquel] 200 mg PO HS 10/03/16 02/12/17 History Is Patient on Beta Joellen?: No - Medical History Respiratory: DENIES: Asthma, Bronchitis, Chronic Obstructive Pulmonary Disease (COPD), Dyspnea, Orthopnea, Pulmonary Embolism, Pneumonia, Upper Respiratory Infection, Pulmonary Edema, Sleep Apnea, Tuberculosis, Other Cardiovascular: Reports: Hypertension DENIES: Abnormal EKG, Angina, Arrhythmia, Congestive Heart Failure, Coronary Artery Disease, Heart Murmur, Hypotension, Myocardial Infarction, Rheumatic Fever, Valvular Heart Disease, Other Gastrointestional: DENIES: Obstructive Bowel, Hepatitis, Cirrhosis, Gastroesophageal Reflux Disease, Gastrointestinal Bleeding, Hiatal Hernia, Ulcer, Morbid Obesity, Other Neuro/Musculoskeletal: Denies: HX.MS.OSAR, Back Problems, Cerebrovascular Accident, Depression, Headaches, Loss of Consciousness, Muscle Weakness, Neuromuscular Disorder, Paralysis, Paresthesia, Syncope, Seizures, Other Renal/Endocrine: 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) DENIES: Diabetes Mellitus Type 1, Diabetes Mellitus Type 2, Renal Failure, Dialysis, Thyroid Disease, Weight Loss, Weight Gain Other History: DENIES: Anesthesia Reactions, Now, Blood Transfusions, Chemotherapy , Cancer, Hemophilia, Malignant Hyperthermia, Sickle Cell Disease, Other - Surgical History Cardiac Surgeries/Treatments: DENIES: Pacemaker Respiratory Surgery/Treatments: Reports: Other (Uses mouth guard) GI Surgery/Treatments: Reports: Colonoscopy, EGD Surgery/Treatment: DENIES: Dialysis Musculoskeletal Surgery/Tx: Reports: Total Knee Replacement (LT TKR March 2016 ) Reproductive Surgery/Treatment: Reports: Breast Augmentation/Reduction (BREAST IMPLANTS), Dilation and Curettage DENIES: Mastectomy Anesthesia Reactions: None Hx Family Anesthesia Reaction: No - Social History Smoking Status: Never smoker Hx Chewing Tobacco Use: No Second Hand Exposure: No Substance Use Type: does not use Alcohol Intake: never Alcohol Intake Frequency: does not drink - Pertinent Findings Laboratory: CBC and BMP 02/17/17 04:19 02/17/17 04:19 BMP 02/17/17 04:19 Sodium 140 Potassium 3.4 L Chloride 104 Carbon Dioxide 27 BUN 9.0 Creatinine 0.8 Glucose 90 Calcium 8.9 Liver Function 02/17/17 Range/Units 04:19 Total Bilirubin 0.30 (0.20-1.30) MG/DL AST 40 H (14-36) U/L ALT 56 H (9-52) U/L Alkaline Phosphatase 148 H (38-126) U/L Albumin 3.4 L (3.5-5.0) G/DL EKG: Sinus Rhythm - Physical Exam Respiratory Exam: Present: lungs clear Cardiovascular Exam: Present: regular rate and rhythm - Airway Assessment Mallampati Score: II TMD: 3 Fingerbreadths Neck Extension: fair Overall Assessment: may be difficult intubation - ASA ASA Score: 3 - Plan Anesthesia: General TIVA Peripheral Nerve Block: Saphenous-Left - Discussion Discussion: Discussed risks/options/alternatives of anesthesia and questions answered. Patient consents. Nursing pain assessment noted. Attestation Statement: Prior to the delivery of any anesthetic medication, I examined the patient, developed the plan, obtained the patient's consent and discussed the risk and benefits of the procedure with the patient/guardian.
[2017-02-17] MEDS ORDERED: VANCOMYCIN 1,000 MG INJECTION ONE ×2 (14:45→16:08)
[2017-02-17] MEDS ORDERED: LR 1,000 ML IV SCH (16:00)
[2017-02-17] MEDS: VANCOMYCIN 1,000 MG INJECTION IAR ONE ×2 (16:00→18:38)
--- NOTE | 2017-02-17 16:52 | Anesthesia Procedure Note ---
Peripheral Nerve Blockade - Procedure Physician: Sumit Pierre MD Date: 02/17/17 Surgical Procedure: left knee spacer exchange Discussion: Discussed risks/options/alternatives of anesthesia and questions answered. Patient consents. Nursing pain assessment noted. Block Start: 16:37 Block Stop: 16:40 Blocked Employed: Adductor Canal Indication: Post-Operative Pain Approach: Left Side Confirmed Position: Supine Patient: Consent, Risks/Benefits Discussed, Informed, Post Block Act. Discussed IV Sedation: No Initial Vital Signs: Temperature 97.9 F 02/12/17 17:04 Temperature Source Oral 02/12/17 17:04 Sepsis Recent Fever Within 48 Hours No 02/12/17 17:04 Sepsis Suspicion of Infection No 02/12/17 17:04 Sepsis New/Unexplained Change in Mental Status No 02/12/17 17:04 Sepsis Score/Level No Definite Risk 02/12/17 17:04 Sepsis Action Taken by Nursing No Action 02/12/17 17:04 Pulse Rate 108 H 02/12/17 17:04 Pulse Rhythm 02/12/17 17:04 Pulse Strength Normal 02/12/17 17:04 Respiratory Rate 18 02/12/17 17:04 Respiratory Effort Non-Labored 02/12/17 17:04 Respiratory Depth Normal 02/12/17 17:04 Respiratory Pattern 02/12/17 17:04 Blood Pressure 160/84 H 02/12/17 17:04 Blood Pressure Mean 109 02/12/17 17:04 Blood Pressure Position Supine 02/12/17 17:04 Pulse Oximetry 100 02/12/17 17:04 Oxygen Delivery Method 02/12/17 17:04 Post Vital Signs: Temperature 98.2 F 02/17/17 12:20 Pulse Rate 84 02/17/17 12:38 Respiratory Rate 20 02/17/17 12:20 Blood Pressure 138/74 02/17/17 12:42 Pulse Oximetry 99 02/17/17 12:20 Initial Pain Pain Score: 0 Post Block Pain Score: 0 Prep: Duraprep - Injectate Ropivacaine (%): 0.5 Ropivacaine (mL): 20 Was Epi 1:200,000 Used?: No Injection: Injection made incrementally with constant monitoring and aspiration every ml
--- NOTE | 2017-02-17 16:52 | Anesthesia Postoperative Note ---
- Date and Time Date: 02/17/17 Time: 16:52 - Status Patient Participated in Evaluation: Patient Participated in Person Vital Signs: Temperature 98.2 F 02/17/17 12:20 Pulse Rate 84 02/17/17 12:38 Respiratory Rate 20 02/17/17 12:20 Blood Pressure 138/74 02/17/17 12:42 Pulse Oximetry 99 02/17/17 12:20 Respiratory Function: Airway Patent Cardiovascular Function: Regular Pulse EKG: Sinus Rhythm Mental Status: Alert and Oriented Pain Intensity: 0 Hydration: Taking PO Fluids, IV Infusing Complications During Recover: None Apparent - Follow-Up Instructions Instructions: Per Surgeon
[2017-02-17] MEDS: HYDROMORPHONE 2 MG/ML INJECTION IVP PRN ×2 (17:10→17:20)
[2017-02-17] MEDS ORDERED: NOZIN NASAL SWAB NAS ONE (17:38)
[2017-02-17] MEDS ORDERED: MORPHINE SULFATE 10 MG SYRINGE IVP PRN (17:38)
[2017-02-17] MEDS: CITALOPRAM 40 MG TABLET PO SCH (20:27)
[2017-02-17] MEDS: QUETIAPINE 200 MG TABLET PO SCH (20:27)
[2017-02-17] MEDS: AMLODIPINE 5 MG TABLET PO SCH (20:27)
[2017-02-17] MEDS: ESTRADIOL 0.01% VAGINAL CREAM 42.5gm VAGINAL SCH (20:28)
[2017-02-17] MEDS: HYDROCODONE/APAP 7.5 MG/325 MG TABLET PO PRN (20:35)
[2017-02-17] MEDS: NOZIN NASAL SWAB NAS SCH (21:01)
[2017-02-18] MEDS: HYDROCODONE/APAP 7.5 MG/325 MG TABLET PO PRN ×4 (02:24→20:39)
[2017-02-18] MEDS: NS 1,000 ML IV SCH ×3 (05:00→16:13)
[2017-02-18] MEDS: NOZIN NASAL SWAB NAS SCH ×4 (05:13→21:00)
[2017-02-18] MEDS: OMEPRAZOLE 20 MG CAPSULE PO SCH ×2 (05:14→05:31)
--- NOTE | 2017-02-18 08:13 | Orthopedic Progress Note ---
Date: Subjective/Severity of Illness: Doing well. Has more pain today than after her other surgeries. No confusion. Orthopedic Objective Vital signs: Temperature 96.8 F 02/18/17 02:40 Pulse Rate 89 02/18/17 02:40 Respiratory Rate 16 02/18/17 02:40 Blood Pressure 121/67 02/18/17 02:40 Pulse Oximetry 92 02/18/17 05:01 Height and Weight: Height 5 ft 5 in Weight 74.3 kg Body Mass Index 27.4 - Constitutional General Appearance: Present: alert, orientated x3, cooperative, no acute distress - Respiratory Exam Present: non-labored - Cardiovascular Exam Capillary Refill: < 2-3 Seconds - Extremities Exam Present: pulses intact - Integumentary Exam Present: dry, intact, erythema - Lymphatic Lymphatic: Absent: adenopathy - Neurological Exam Present: no deficits - Wound Management Left Knee Secondary Dressing: Mepilex (clean, dry, intact) - Labs Result Diagrams: 02/18/17 04:19 02/18/17 04:19 Abnormal lab results 02/18/17 02/18/17 Range/Units 04:19 04:19 RBC 2.41 L (4.00-5.20) M/MM3 Hgb 7.3 L D (12-16) GM/DL Hct 22.8 L D (36-46) % Plt Count 562 H (130-400) T/MM3 MPV 8.5 L (9.4-12.4) UM3 Immature Gran % (Auto) 0.7 H (0.0-0.5) % Neut % (Auto) 74.1 H (33-66) % Lymph % (Auto) 13.9 L (23-45) % Abs Immat Gran (auto) 0.05 H (0.00-0.03) T/MM3 Calcium 8.2 L (8.4-10.2) MG/DL AST 47 H (14-36) U/L Total Protein 5.5 L (6.3-8.2) G/DL Albumin 2.8 L (3.5-5.0) G/DL Albumin/Globulin Ratio 1.0 L (1.1-2.2) RATIO H & H 02/13/17 02/14/17 02/15/17 Range/Units 04:29 10:02 04:01 Hgb 9.0 L D 9.3 L 8.7 L (12-16) GM/DL Hct 27.8 L D 29.0 L 27.5 L (36-46) % 02/16/17 02/17/17 02/18/17 Range/Units 04:26 04:19 04:19 Hgb 9.1 L 9.0 L 7.3 L D (12-16) GM/DL Hct 28.6 L 27.8 L 22.8 L D (36-46) % Intraoperative tissue cultures pending Orthopedic Assessment and Plan (1) Prosthetic joint infection Status: Acute Qualifiers: Encounter type: subsequent encounter Qualified Code(s): T84.50XD - Infection and inflammatory reaction due to unspecified internal joint prosthesis , subsequent encounter Assessment and Plan: Continue current care. PT/OT. Continue current abx until new intraoperative cultures final. Hospital Course Summary Disclaimer: The visit summary below is not to be considered part of the above Progress Note. Hospital Course: 02/13/17 12:55 Admit as inpatient. Her is having to sit by the bed to keep her calm. Will start haldol scheduled and prn. Increase available Ativan. Infection could be playing a role but CRP has continued to trend down. Case d/w Drs. García and David. Both are consulted. Will restart ceftriaxone and dc Levaquin. Lack of sleep and/or pain control might be the biggest issue. [place] and iv morphine available. Home medications resumed. 02/14/17 -Plan Scheduled Haldol QID has helped with confusion and hallucinations. Continue on Rocephin IV for antimicrobial coverage. Levaquin was discontinued ( as this can cause encephalopathy) Continue with [place] for pain control. Monitor blood pressure- Currently on Norvasc and Lasix. Appreciated consultation by Dr García. monitor CRP which is trending down. Once medically improved consider PT/OT consult and ambulation with nursing staff to avoid weakness from acute illness Will recheck CBC, CRP and BMP today as ordered and planned for 10 am Discuss plan on care with attending, Dr Pierre. 02/15/17 11:34 Pt doing well and has improved from admission. Delirium is mostly resolved although etiology still unclear. Will cont. to trend down haldol as pt is already on multiple meds that can prolong QT and cause sedation so it would be best not to send pt home on haldol. Ortho is following and knee infection is improving. Will encourage ambulation today and hope to target discharge in the next 1-2 days. 02/16/17 10:06 Delirium much improved; no other source for infection. Could be r/t sleep deprivation vs med effect. Increased erythema to left knee, though WBC nml and CRP trending down. Plt still elevated. 02/17/17 Plan Delirium overall appears to be resolved. Exact etiology is unclear. Could be multifactorial including medications versus infection. Haldol discontinued. Left knee does reveal continued redness with warmth. Planning for washout by orthopedic team this afternoon. Continue on Rocephin 2 grams IV daily Patient has been followed by Dr. Hernandez with infectious disease. Continue to monitor blood pressure, slightly elevated overnight, continue on Norvasc, and Lasix. Mild Hypokalemia, Continue with PO replacement Thrombocytosis - possible reactive as well as transaminitis. Will continue to follow Senna, Miralax for bowel motivation Discuss further plan of care with attending, Dr Pierre
[2017-02-18] MEDS: FOLIC ACID 1 MG TABLET PO SCH (08:52)
[2017-02-18] MEDS: MULTI-VITAMIN + MINERAL TABLET PO SCH (08:52)
[2017-02-18] MEDS: FERROUS SULFATE 324 MG TABLET PO SCH (08:52)
[2017-02-18] MEDS: CycloSPORINE 0.05% EYE DROPS 4ml EACH EYE SCH (08:52)
[2017-02-18] MEDS: HYDROXYCHLOROQUINE 200 MG TABLET PO SCH ×2 (08:52→17:42)
[2017-02-18] MEDS: ASPIRIN 81 MG CHEWABLE TABLET PO SCH ×2 (08:53→20:43)
[2017-02-18] MEDS: SENNA + DOCUSATE TABLET PO SCH ×2 (08:53→20:40)
[2017-02-18] MEDS: POLYETHYL GLYCOL 3350 17gm PACKET PO SCH (08:53)
[2017-02-18] MEDS: ASCORBIC ACID 500 MG TABLET PO SCH (08:53)
[2017-02-18] MEDS: FLUTICASONE NASAL SPRAY 50mcg EA NOSTRIL SCH (08:53)
[2017-02-18] MEDS: FUROSEMIDE 20 MG TABLET PO SCH ×2 (08:53→15:30)
--- NOTE | 2017-02-18 09:00 | Operative Note ---
DATE OF PROCEDURE 02/17/2017 PREOPERATIVE DIAGNOSIS Left knee periprosthetic infection. POSTOPERATIVE DIAGNOSIS Left knee periprosthetic infection. PROCEDURE Left knee irrigation and debridement, spacer exchange. SURGEON Henry García MD ANESTHESIA General. COMPLICATIONS None. EBL AND FLUIDS AND TOURNIQUET TIME Please Anesthetic Records. BRIEF HISTORY Mrs. Armstrong is a kind 66-year-old female. She is status post previous I&D and spacer exchange for a hematogenous spread left periprosthetic infection. She has been doing well and her lab numbers continue to improve although over the last few days she has had increased redness over the incision and she has some fluctuance underneath the incision and yesterday this fluctuance was aspirated and did have gram positive cocci in the aspirate. For this reason I recommended a repeat incision and drainage of at least the superficial abscess and, if needed, complete irrigation and debridement with spacer exchange, depending on intraoperative findings. She agreed with this plan. Of note her white blood cell and her CRP numbers continue to improve. DESCRIPTION OF PROCEDURE Mrs. Armstrong and her left knee were identified and marked in the preoperative holding area. She was brought back to the operating suite and placed supine on the operating table. She was placed under general anesthesia and the left lower extremity was prepped and draped in my normal sterile fashion. Time-out was performed. The patient was on scheduled antibiotics. I began by re-incising her previous anterior midline incision. There was some fluid, just slightly turbid , underneath the skin incision about the capsule. This was irrigated out. Thorough debridement of the capsule tissue was performed. There did appear to be a very small opening connection between the joint through the previous arthrotomy. This measured less than a millimeter, but when the knee was ranged bubbles would appear through this small rent. For this reason, I decided to proceed with a complete irrigation and debridement of the joint and so the previous capsulotomy was reopened sharply and proceeded with another complete synovectomy. This was done sharply. Curettes were used on the bone. There was no necrotic tissue or noted abscess in the deep tissue. The knee was thoroughly irrigated with 3 liters of normal saline. I then removed the previous spacer and we continued to irrigate. We also used Betadine lavage as well as IrriSept solution during the debridement and the irrigation. After I felt a complete debridement was performed, everybody involved changed gloves. A new spacer was then placed without incident. The knee was washed out with another 3 liters of normal saline and then finally IrriSept solution. The capsulotomy was reclosed with #1 PDS in a simple interrupted fashion. One gram of vancomycin powder was placed into the joint before the capsular closure. Another gram of vancomycin was placed superficial to the capsule. Subcutaneous tissue was closed with 2-0 PDS in a simple interrupted fashion. [place] were used on the skin followed by a sterile dressing. The drapes were removed. She was allowed to awaken from general anesthesia and taken to the Recovery Room under the care of Anesthesia. She tolerated the procedure well and there were no complications. The tourniquet was inflated during the procedure but deflated prior to closure and hemostasis was obtained with electrocautery. MARILYN
--- NOTE | 2017-02-18 10:06 | Progress Note ---
<Puja Gonsalves V - Last Filed: 02/18/17 09:59> - Date 02/18/17 Subjective: Nona is seen this morning while eating breakfast. She reports having increased left knee pain earlier this morning that has now improved follow oral pain meds. She denies shortness of breath or GI concerns. Appetite good. She is nervous to get up and ambulate. Objective Vital signs: Temperature 97.1 F 02/18/17 07:00 Pulse Rate 88 02/18/17 07:00 Respiratory Rate 18 02/18/17 07:00 Blood Pressure 134/80 02/18/17 07:00 Pulse Oximetry 95 02/18/17 07:00 Height/Weight/BMI: Height 1.65 m Weight 77.5 kg Body Mass Index 27.4 - Constitutional Present: no acute distress, well nourished, well developed - Routine HEENT Exam Eye: Present: EOMI ENT: Present: mucous membranes moist, dentition normal - Routine Respiratory Exam Present: CTA bilaterally. Absent: wheezes - Routine Cardiovascular Exam Present: RRR, S1, S2. Absent: murmur - Routine Abdominal Exam Present: soft, normoactive bowel sounds, non distended. Absent: tenderness - Routine Extremities Exam Present: pulses intact Comments: Left knee pain - Routine Back/Spine/Pelvis Exam Back/Spine: Present: full ROM - Routine Skin Exam Present: intact, dry, warm - Routine Neurological Exam Present: alert, oriented X3, CN II-XII intact - Routine Lymphatic Exam Lymphatic: Absent: adenopathy - Routine Psychiatric Exam Present: normal affect, cooperative Results - Labs CBC & Chem 7: 02/18/17 04:19 02/18/17 04:19 Microbiology Results: Microbiology 02/17/17 15:27 Knee, Left Intraop Tissue Surgical Culture - Preliminary Culture Initiated - Results Pending 02/17/17 15:33 Knee, Left Intraop Tissue Surgical Culture - Preliminary Culture Initiated - Results Pending 02/16/17 16:00 Aspirate, Left Knee Gram Stain - Final 02/16/17 16:00 Aspirate, Left Knee Body Fluid Culture - Preliminary No Growth After 1 Day Assessment and Plan (1) Rheumatoid arthritis Current visit: No Status: Acute (2) Hypertension Current visit: No Status: Acute (3) GERD (gastroesophageal reflux disease) Current visit: No Status: Acute (4) Prosthetic joint infection Current visit: No Status: Acute (5) Altered mental status Current visit: Yes Status: Acute Assessment and Plan: Impression Left knee infection Delirium- Resolved Normocytic Anemia Thrombocytosis- ? Reactive Transaminitis HTN Insomnia Plan Overall Nona is feeling good today. Hgb decreased today to 7.3. Will continue to monitor. knee cultures obtained yesterday during procedure with Dr García. Will await for C /S to know nursing home antibiotic treatment Planning to get up and move today with PT/OT. Continue with pain control as needed Recheck CBC and BMP tomorrow to follow blood counts, renal function and electrolytes Hospital Course Summary Disclaimer: The visit summary below is not to be considered part of the above Progress Note. Hospital Course: 02/13/17 12:55 Admit as inpatient. Her is having to sit by the bed to keep her calm. Will start haldol scheduled and prn. Increase available Ativan. Infection could be playing a role but CRP has continued to trend down. Case d/w Drs. García and David. Both are consulted. Will restart ceftriaxone and dc Levaquin. Lack of sleep and/or pain control might be the biggest issue. [place] and iv morphine available. Home medications resumed. 02/14/17 -Plan Scheduled Haldol QID has helped with confusion and hallucinations. Continue on Rocephin IV for antimicrobial coverage. Levaquin was discontinued ( as this can cause encephalopathy) Continue with [place] for pain control. Monitor blood pressure- Currently on Norvasc and Lasix. Appreciated consultation by Dr García. monitor CRP which is trending down. Once medically improved consider PT/OT consult and ambulation with nursing staff to avoid weakness from acute illness Will recheck CBC, CRP and BMP today as ordered and planned for 10 am Discuss plan on care with attending, Dr Pierre. 02/15/17 11:34 Pt doing well and has improved from admission. Delirium is mostly resolved although etiology still unclear. Will cont. to trend down haldol as pt is already on multiple meds that can prolong QT and cause sedation so it would be best not to send pt home on haldol. Ortho is following and knee infection is improving. Will encourage ambulation today and hope to target discharge in the next 1-2 days. 02/16/17 10:06 Delirium much improved; no other source for infection. Could be r/t sleep deprivation vs med effect. Increased erythema to left knee, though WBC nml and CRP trending down. Plt still elevated. 02/17/17 Plan Delirium overall appears to be resolved. Exact etiology is unclear. Could be multifactorial including medications versus infection. Haldol discontinued. Left knee does reveal continued redness with warmth. Planning for washout by orthopedic team this afternoon. Continue on Rocephin 2 grams IV daily Patient has been followed by Dr. Hernandez with infectious disease. Continue to monitor blood pressure, slightly elevated overnight, continue on Norvasc, and Lasix. Mild Hypokalemia, Continue with PO replacement Thrombocytosis - possible reactive as well as transaminitis. Will continue to follow SenPhilip alarconalax for bowel motivation Discuss further plan of care with attending, Dr Pierre 02/18/17 Plan Overall Nona is feeling good today. Hgb decreased today to 7.3. Will continue to monitor. knee cultures obtained yesterday during procedure with Dr García. 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 Continue with pain control as needed Recheck CBC and BMP tomorrow to follow blood counts, renal function and electrolytes <Sumit Pierre - Last Filed: 02/18/17 15:57> - Date 02/18/17 Objective Vital signs: Temperature 98.0 F 02/18/17 12:00 Pulse Rate 82 02/18/17 12:00 Respiratory Rate 16 02/18/17 12:00 Blood Pressure 123/70 02/18/17 12:00 Pulse Oximetry 96 02/18/17 12:00 Height/Weight/BMI: Height 5 ft 5 in Weight 77.5 kg Body Mass Index 27.4 Results - Labs CBC & Chem 7: 02/18/17 04:19 02/18/17 04:19 Microbiology Results: Microbiology 02/17/17 15:27 Knee, Left Intraop Tissue Gram Stain - Final 02/17/17 15:27 Knee, Left Intraop Tissue Surgical Culture - Preliminary Culture Initiated - Results Pending 02/17/17 15:33 Knee, Left Intraop Tissue Gram Stain - Final 02/17/17 15:33 Knee, Left Intraop Tissue Surgical Culture - Preliminary Culture Initiated - Results Pending 02/16/17 16:00 Aspirate, Left Knee Gram Stain - Final 02/16/17 16:00 Aspirate, Left Knee Body Fluid Culture - Preliminary No Growth After 1 Day Assessment and Plan (1) Rheumatoid arthritis Current visit: No Status: Acute (2) Hypertension Current visit: No Status: Acute (3) GERD (gastroesophageal reflux disease) Current visit: No Status: Acute (4) Prosthetic joint infection Current visit: No Status: Acute (5) Altered mental status Current visit: Yes Status: Acute Assessment and Plan: Pt is doing well today. Denies any acute complaints other then knee pain. Denies f/c, n/v/d, cp or sob. Pt is doing better after knee procedure yesterday. Plan is to monitor the infection and await synovial cx's to determine if abx management needs to be changed. Hospital Course Summary Disclaimer: The visit summary below is not to be considered part of the above Progress Note.
[2017-02-18] MEDS: CEFTRIAXONE 2 GM in NS 100 ML IV SCH (12:48)
[2017-02-18] MEDS: CITALOPRAM 40 MG TABLET PO SCH (20:41)
[2017-02-18] MEDS: AMLODIPINE 5 MG TABLET PO SCH (20:42)
[2017-02-18] MEDS: QUETIAPINE 200 MG TABLET PO SCH (20:43)
[2017-02-19] MEDS: ESTRADIOL 0.01% VAGINAL CREAM 42.5gm VAGINAL SCH ×2 (01:03→20:29)
[2017-02-19] MEDS: HYDROCODONE/APAP 7.5 MG/325 MG TABLET PO PRN ×4 (02:32→20:31)
[2017-02-19] MEDS: NS 1,000 ML IV SCH (02:43)
[2017-02-19] MEDS: NOZIN NASAL SWAB NAS SCH ×3 (05:46→23:29)
[2017-02-19] MEDS: OMEPRAZOLE 20 MG CAPSULE PO SCH (05:46)
[2017-02-19] MEDS ORDERED: NS FLUSH BAG 500ml IV PRN (06:59)
[2017-02-19 07:46] VITALS: RESP 18
[2017-02-19] MEDS: SENNA + DOCUSATE TABLET PO SCH ×2 (08:54→20:29)
[2017-02-19] MEDS: ASPIRIN 81 MG CHEWABLE TABLET PO SCH ×2 (08:54→20:29)
[2017-02-19] MEDS: MULTI-VITAMIN + MINERAL TABLET PO SCH (08:54)
[2017-02-19] MEDS: ASCORBIC ACID 500 MG TABLET PO SCH (08:54)
[2017-02-19] MEDS: FOLIC ACID 1 MG TABLET PO SCH (08:56)
[2017-02-19] MEDS: FERROUS SULFATE 324 MG TABLET PO SCH (08:56)
[2017-02-19] MEDS: CycloSPORINE 0.05% EYE DROPS 4ml EACH EYE SCH (08:57)
[2017-02-19] MEDS: FLUTICASONE NASAL SPRAY 50mcg EA NOSTRIL SCH (08:57)
[2017-02-19] MEDS: HYDROXYCHLOROQUINE 200 MG TABLET PO SCH ×2 (08:57→17:41)
[2017-02-19] MEDS: FUROSEMIDE 20 MG TABLET PO SCH ×2 (08:58→14:25)
[2017-02-19] MEDS: POLYETHYL GLYCOL 3350 17gm PACKET PO SCH (08:58)
--- NOTE | 2017-02-19 10:13 | Orthopedic Progress Note ---
Date: Subjective/Severity of Illness: Doing well. No confusion today. Dr. García did perform an I&D with spacer exchange on Thursday02/17/17. Hgb is 6.6, hospitalist service is planning a transfusion. Orthopedic Objective PO Vital signs: Temperature 96.4 F L 02/19/17 07:45 Pulse Rate 91 02/19/17 07:45 Respiratory Rate 18 02/19/17 07:45 Blood Pressure 132/66 02/19/17 07:45 Pulse Oximetry 99 02/19/17 07:45 Height and Weight: Height 5 ft 5 in Weight 170 lb 13.732 oz Body Mass Index 27.4 - Constitutional General Appearance: Present: alert, orientated x3, cooperative, no acute distress - Respiratory Exam Present: non-labored - Cardiovascular Exam Present: pedal pulses intact - Extremities Exam Extremities: Present: pulses intact - Knee Exam Knee Exam: Absent: painful ROM - Surgical Site Incision: clean, dry, intact, gil present, erythema (Mild), no drainage ( Their is one area in the proximal incision, raised area, no drainage, no obvious pustule.), other (Localized fluid collection in SQ tissues.) - Integumentary Exam Present: dry, intact, erythema - Lymphatic Lymphatic: Absent: adenopathy - Neurological Exam Present: no deficits - Psychiatric Exam Present: alert - Wound Management Left Knee Secondary Dressing: Mepilex (clean, dry, intact) - Labs Result Diagrams: 02/19/17 03:52 02/19/17 03:52 Abnormal lab results 02/19/17 02/19/17 02/19/17 Range/Units 03:52 03:52 05:50 RBC 2.22 L (4.00-5.20) M/MM3 Hgb 6.6 L (12-16) GM/DL Hct 21.0 L (36-46) % Plt Count 557 H (130-400) T/MM3 MPV 8.9 L (9.4-12.4) UM3 Immature Gran % (Auto) 0.6 H (0.0-0.5) % Lymph % (Auto) 22.2 L (23-45) % [place] % (Auto) 9.3 H (0-9.0) % Abs Immat Gran (auto) 0.04 H (0.00-0.03) T/MM3 Calcium 8.0 L (8.4-10.2) MG/DL Total Bilirubin < 0.10 L (0.20-1.30) MG/DL Total Protein 5.5 L (6.3-8.2) G/DL Albumin 2.8 L (3.5-5.0) G/DL Albumin/Globulin Ratio 1.0 L (1.1-2.2) RATIO Crossmatch (AHG) See Detail H & H 02/13/17 02/14/17 02/15/17 Range/Units 04:29 10:02 04:01 Hgb 9.0 L D 9.3 L 8.7 L (12-16) GM/DL Hct 27.8 L D 29.0 L 27.5 L (36-46) % 02/16/17 02/17/17 02/18/17 Range/Units 04:26 04:19 04:19 Hgb 9.1 L 9.0 L 7.3 L D (12-16) GM/DL Hct 28.6 L 27.8 L 22.8 L D (36-46) % 02/19/17 Range/Units 03:52 Hgb 6.6 L (12-16) GM/DL Hct 21.0 L (36-46) % Orthopedic Assessment and Plan (1) Prosthetic joint infection Status: Acute Qualifiers: Encounter type: subsequent encounter Qualified Code(s): T84.50XD - Infection and inflammatory reaction due to unspecified internal joint prosthesis , subsequent encounter Assessment and Plan: Continue current care. PT/OT. Continue current abx until new intraoperative cultures final. Hospital Course Summary Disclaimer: The visit summary below is not to be considered part of the above Progress Note. Hospital Course: 02/13/17 12:55 Admit as inpatient. Her is having to sit by the bed to keep her calm. Will start haldol scheduled and prn. Increase available Ativan. Infection could be playing a role but CRP has continued to trend down. Case d/w Drs. García and David. Both are consulted. Will restart ceftriaxone and dc Levaquin. Lack of sleep and/or pain control might be the biggest issue. [place] and iv morphine available. Home medications resumed. 02/14/17 -Plan Scheduled Haldol QID has helped with confusion and hallucinations. Continue on Rocephin IV for antimicrobial coverage. Levaquin was discontinued ( as this can cause encephalopathy) Continue with [place] for pain control. Monitor blood pressure- Currently on Norvasc and Lasix. Appreciated consultation by Dr García. monitor CRP which is trending down. Once medically improved consider PT/OT consult and ambulation with nursing staff to avoid weakness from acute illness Will recheck CBC, CRP and BMP today as ordered and planned for 10 am Discuss plan on care with attending, Dr Pierre. 02/15/17 11:34 Pt doing well and has improved from admission. Delirium is mostly resolved although etiology still unclear. Will cont. to trend down haldol as pt is already on multiple meds that can prolong QT and cause sedation so it would be best not to send pt home on haldol. Ortho is following and knee infection is improving. Will encourage ambulation today and hope to target discharge in the next 1-2 days. 02/16/17 10:06 Delirium much improved; no other source for infection. Could be r/t sleep deprivation vs med effect. Increased erythema to left knee, though WBC nml and CRP trending down. Plt still elevated. 02/17/17 Plan Delirium overall appears to be resolved. Exact etiology is unclear. Could be multifactorial including medications versus infection. Haldol discontinued. Left knee does reveal continued redness with warmth. Planning for washout by orthopedic team this afternoon. Continue on Rocephin 2 grams IV daily Patient has been followed by Dr. Hernandez with infectious disease. Continue to monitor blood pressure, slightly elevated overnight, continue on Norvasc, and Lasix. Mild Hypokalemia, Continue with PO replacement Thrombocytosis - possible reactive as well as transaminitis. Will continue to follow Senna, Miralax for bowel motivation Discuss further plan of care with attending, Dr Pierre 02/18/17 Plan Overall Nona is feeling good today. Hgb decreased today to 7.3. Will continue to monitor. knee cultures obtained yesterday during procedure with Dr García. Will await for C /S to know care home antibiotic treatment Planning to get up and move today with PT/OT. Continue with pain control as needed Recheck CBC and BMP tomorrow to follow blood counts, renal function and electrolytes
--- NOTE | 2017-02-19 10:45 | Progress Note ---
<Puja Gonsalves V - Last Filed: 02/19/17 10:42> - Date 02/19/17 Subjective: Nona is up in the chair this morning. She reports she has already been up and ambulating in the halls. Reports having mild pain to lateral aspect of left knee however this is controlled with scheduled [place]. Appetite is good, bowels are moving. Objective Vital signs: Temperature 96.4 F L 02/19/17 07:45 Pulse Rate 91 02/19/17 07:45 Respiratory Rate 18 02/19/17 07:45 Blood Pressure 132/66 02/19/17 07:45 Pulse Oximetry 99 02/19/17 07:45 Height/Weight/BMI: Height 1.65 m Weight 77.5 kg Body Mass Index 27.4 - Constitutional Present: no acute distress, well nourished, well developed - Routine HEENT Exam Eye: Present: EOMI ENT: Present: mucous membranes moist, dentition normal - Routine Respiratory Exam Present: CTA bilaterally. Absent: wheezes - Routine Cardiovascular Exam Present: RRR, S1, S2. Absent: murmur - Routine Abdominal Exam Present: soft, normoactive bowel sounds, non distended. Absent: tenderness - Routine Extremities Exam Present: normal capillary refill - Routine Back/Spine/Pelvis Exam Back/Spine: Present: full ROM - Routine Skin Exam Present: intact, dry, warm - Routine Neurological Exam Present: alert, oriented X3, CN II-XII intact - Routine Lymphatic Exam Lymphatic: Absent: adenopathy - Routine Psychiatric Exam Present: normal affect, cooperative Results - Labs CBC & Chem 7: 02/19/17 03:52 02/19/17 03:52 Microbiology Results: Microbiology 02/17/17 15:27 Knee, Left Intraop Tissue Gram Stain - Final 02/17/17 15:27 Knee, Left Intraop Tissue Surgical Culture - Preliminary No Growth After 1 Day 02/17/17 15:33 Knee, Left Intraop Tissue Gram Stain - Final 02/17/17 15:33 Knee, Left Intraop Tissue Surgical Culture - Preliminary No Growth After 1 Day 02/16/17 16:00 Aspirate, Left Knee Gram Stain - Final 02/16/17 16:00 Aspirate, Left Knee Body Fluid Culture - Preliminary No Growth After 2 Days Assessment and Plan (1) Rheumatoid arthritis Current visit: No Status: Acute (2) Hypertension Current visit: No Status: Acute (3) GERD (gastroesophageal reflux disease) Current visit: No Status: Acute (4) Prosthetic joint infection Current visit: No Status: Acute (5) Altered mental status Current visit: Yes Status: Acute Assessment and Plan: Impression Left knee infection Anemia Delirium- Resolved Normocytic Anemia Thrombocytosis- ? Reactive Transaminitis HTN Insomnia Plan Hgb today is down to 6.6. Will transfuse 1 unit of PRBC. Encouraged by decreased erythema to left knee. Continue on antibiotics, Rocephin 2 mg IV daily Encourage [place] as needed for pain BP well controlled on Norvasc Senna and Miralax for bowel motivation Encourage ambulation and continued strengthening with PT Case discussed with Ortho- Awaiting final culture results. Hospital Course Summary Disclaimer: The visit summary below is not to be considered part of the above Progress Note. Hospital Course: 02/13/17 12:55 Admit as inpatient. Her is having to sit by the bed to keep her calm. Will start haldol scheduled and prn. Increase available Ativan. Infection could be playing a role but CRP has continued to trend down. Case d/w Drs. García and David. Both are consulted. Will restart ceftriaxone and dc Levaquin. Lack of sleep and/or pain control might be the biggest issue. [place] and iv morphine available. Home medications resumed. 02/14/17 -Plan Scheduled Haldol QID has helped with confusion and hallucinations. Continue on Rocephin IV for antimicrobial coverage. Levaquin was discontinued ( as this can cause encephalopathy) Continue with [place] for pain control. Monitor blood pressure- Currently on Norvasc and Lasix. Appreciated consultation by Dr García. monitor CRP which is trending down. Once medically improved consider PT/OT consult and ambulation with nursing staff to avoid weakness from acute illness Will recheck CBC, CRP and BMP today as ordered and planned for 10 am Discuss plan on care with attending, Dr Pierre. 02/15/17 11:34 Pt doing well and has improved from admission. Delirium is mostly resolved although etiology still unclear. Will cont. to trend down haldol as pt is already on multiple meds that can prolong QT and cause sedation so it would be best not to send pt home on haldol. Ortho is following and knee infection is improving. Will encourage ambulation today and hope to target discharge in the next 1-2 days. 02/16/17 10:06 Delirium much improved; no other source for infection. Could be r/t sleep deprivation vs med effect. Increased erythema to left knee, though WBC nml and CRP trending down. Plt still elevated. 02/17/17 Plan Delirium overall appears to be resolved. Exact etiology is unclear. Could be multifactorial including medications versus infection. Haldol discontinued. Left knee does reveal continued redness with warmth. Planning for washout by orthopedic team this afternoon. Continue on Rocephin 2 grams IV daily Patient has been followed by Dr. Hernandez with infectious disease. Continue to monitor blood pressure, slightly elevated overnight, continue on Norvasc, and Lasix. Mild Hypokalemia, Continue with PO replacement Thrombocytosis - possible reactive as well as transaminitis. Will continue to follow [place] for bowel motivation Discuss further plan of care with attending, Dr Pierre 02/18/17 Plan Overall Nona is feeling good today. Hgb decreased today to 7.3. Will continue to monitor. knee cultures obtained yesterday during procedure with Dr García. 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 Continue with pain control as needed Recheck CBC and BMP tomorrow to follow blood counts, renal function and electrolytes 02/19/17- Hgb today is down to 6.6. Will transfuse 1 unit of PRBC. Continue on antibiotics, Rocephin 2 mg IV daily awaiting final culture results. Overall stable. . <Sumit Pierre - Last Filed: 02/19/17 11:50> - Date 02/19/17 Objective Vital signs: Temperature 96.2 F L 02/19/17 11:00 Pulse Rate 85 02/19/17 11:00 Respiratory Rate 18 02/19/17 11:00 Blood Pressure 124/75 02/19/17 11:00 Pulse Oximetry 97 02/19/17 11:00 Height/Weight/BMI: Height 5 ft 5 in Weight 77.5 kg Body Mass Index 27.4 Results - Labs CBC & Chem 7: 02/19/17 03:52 02/19/17 03:52 Microbiology Results: Microbiology 02/17/17 15:27 Knee, Left Intraop Tissue Gram Stain - Final 02/17/17 15:27 Knee, Left Intraop Tissue Surgical Culture - Preliminary No Growth After 1 Day 02/17/17 15:33 Knee, Left Intraop Tissue Gram Stain - Final 02/17/17 15:33 Knee, Left Intraop Tissue Surgical Culture - Preliminary No Growth After 1 Day 02/16/17 16:00 Aspirate, Left Knee Gram Stain - Final 02/16/17 16:00 Aspirate, Left Knee Body Fluid Culture - Preliminary No Growth After 2 Days Assessment and Plan (1) Rheumatoid arthritis Current visit: No Status: Acute (2) Hypertension Current visit: No Status: Acute (3) GERD (gastroesophageal reflux disease) Current visit: No Status: Acute (4) Prosthetic joint infection Current visit: No Status: Acute (5) Altered mental status Current visit: Yes Status: Acute Assessment and Plan: S: Pt reports doing well this am. Knee pain and swelling is down a little. Denies any f/c, n/v/d, sob, cp. A/P: Pt doing better overall. Hgb dropped, likely d/t post surgery and dilution with fluids, no active bleeding suspected. Will give 1 unit pRBC. Will cont. to follow synovial cx's and cont. curent management. Ortho following as well. Hospital Course Summary Disclaimer: The visit summary below is not to be considered part of the above Progress Note.
[2017-02-19] MEDS: CEFTRIAXONE 2 GM in NS 100 ML IV SCH (14:52)
[2017-02-19] MEDS: AMLODIPINE 5 MG TABLET PO SCH (20:28)
[2017-02-19] MEDS: CITALOPRAM 40 MG TABLET PO SCH (20:28)
[2017-02-19] MEDS: QUETIAPINE 200 MG TABLET PO SCH (20:29)
[2017-02-20] MEDS: HYDROCODONE/APAP 7.5 MG/325 MG TABLET PO PRN ×2 (02:34→08:24)
[2017-02-20] MEDS: OMEPRAZOLE 20 MG CAPSULE PO SCH (05:41)
[2017-02-20] MEDS: NOZIN NASAL SWAB NAS SCH (05:41)
[2017-02-20 06:21] VITALS: BP 116/67
[2017-02-20 07:59] VITALS: PULSE 84; TEMP 97.3; O2SAT 95
[2017-02-20] MEDS: FUROSEMIDE 20 MG TABLET PO SCH (08:23)
[2017-02-20] MEDS: FOLIC ACID 1 MG TABLET PO SCH (08:23)
[2017-02-20] MEDS: MULTI-VITAMIN + MINERAL TABLET PO SCH (08:23)
[2017-02-20] MEDS: SENNA + DOCUSATE TABLET PO SCH (08:23)
[2017-02-20] MEDS: HYDROXYCHLOROQUINE 200 MG TABLET PO SCH (08:24)
[2017-02-20] MEDS: CycloSPORINE 0.05% EYE DROPS 4ml EACH EYE SCH (08:24)
[2017-02-20] MEDS: FERROUS SULFATE 324 MG TABLET PO SCH (08:24)
[2017-02-20] MEDS: ASCORBIC ACID 500 MG TABLET PO SCH (08:24)
[2017-02-20] MEDS: ASPIRIN 81 MG CHEWABLE TABLET PO SCH (08:36)
[2017-02-20] MEDS: FLUTICASONE NASAL SPRAY 50mcg EA NOSTRIL SCH (08:37)
[2017-02-20] MEDS: POLYETHYL GLYCOL 3350 17gm PACKET PO SCH (08:37)
--- NOTE | 2017-02-20 10:56 | Orthopedic Progress Note ---
Date: Subjective/Severity of Illness: Doing well. No confusion today. Dr. García did perform an I&D with spacer exchange on Thursday02/17/17. Hgb is 7.5 after 1 unit of PRBC's. PICC line has been in place since last admission. She is anxious to go home. Dr. Vasquez visited her as well when I was in the room. He will make a decision regarding Hgb level prior to discharge; he may want to watch her another day. I've discussed discharge with Dr. García. He would like to continue the present Rocephin dosing for 6 weeks. She will need a follow up 02/25/17 with Esturado Brewer PA-C. Orthopedic Objective PO Vital signs: Temperature 97.3 F 02/20/17 07:53 Pulse Rate 84 02/20/17 07:53 Respiratory Rate 18 02/20/17 07:53 Blood Pressure 116/67 02/20/17 07:53 Pulse Oximetry 95 02/20/17 07:53 Height and Weight: Height 5 ft 5 in Weight 173 lb 8.061 oz Body Mass Index 27.4 - Constitutional General Appearance: Present: alert, orientated x3, cooperative, no acute distress - Respiratory Exam Present: non-labored - Cardiovascular Exam Present: pedal pulses intact Capillary Refill: < 2-3 Seconds - Abdominal Exam Absent: tenderness - Extremities Exam Extremities: Present: pulses intact. Absent: calf tenderness - Knee Exam Knee Exam: Absent: painful ROM - Surgical Site Incision: clean, dry, intact, Mepilex dressing intact, no drainage (Their is one area in the proximal incision, raised area, no drainage, no obvious pustule. ), other (Localized fluid collection in SQ tissues.) - Integumentary Exam Present: dry, intact, erythema - Lymphatic Lymphatic: Absent: adenopathy, lymphedema - Neurological Exam Present: no deficits - Psychiatric Exam Present: alert - Wound Management Left Knee Secondary Dressing: Mepilex (clean, dry, intact) - Labs Result Diagrams: 02/20/17 04:24 02/19/17 03:52 Abnormal lab results 02/19/17 02/19/17 02/20/17 Range/Units 05:50 15:55 04:24 RBC 2.53 L (4.00-5.20) M/MM3 Hgb 8.4 L D 7.5 L (12-16) GM/DL Hct 23.6 L D (36-46) % Plt Count 518 H (130-400) T/MM3 MPV 8.8 L (9.4-12.4) UM3 Immature Gran % (Auto) 0.7 H (0.0-0.5) % [place] % (Auto) 10.8 H (0-9.0) % Eos % (Auto) 4.7 H (0-4) % Baso % (Auto) 2.5 H (0-2) % Abs Immat Gran (auto) 0.04 H (0.00-0.03) T/MM3 Crossmatch (AHG) See Detail H & H 02/13/17 02/14/17 02/15/17 Range/Units 04:29 10:02 04:01 Hgb 9.0 L D 9.3 L 8.7 L (12-16) GM/DL Hct 27.8 L D 29.0 L 27.5 L (36-46) % 02/16/17 02/17/17 02/18/17 Range/Units 04:26 04:19 04:19 Hgb 9.1 L 9.0 L 7.3 L D (12-16) GM/DL Hct 28.6 L 27.8 L 22.8 L D (36-46) % 02/19/17 02/19/17 02/20/17 Range/Units 03:52 15:55 04:24 Hgb 6.6 L 8.4 L D 7.5 L (12-16) GM/DL Hct 21.0 L 23.6 L D (36-46) % Orthopedic Assessment and Plan (1) Prosthetic joint infection Status: Acute Qualifiers: Encounter type: subsequent encounter Qualified Code(s): T84.50XD - Infection and inflammatory reaction due to unspecified internal joint prosthesis , subsequent encounter Assessment and Plan: Continue current care. PT/OT. Continue current abx until new intraoperative cultures final. Okay to discharge from an orthopaedic perspective. Dr. García would like Rocephin continued at the current dose 2 grams Q24H for 6 weeks. Follow up in Ortho clinic 02/25/17 with Estuardo SUTTON. Continue ASA 81mg PO BID for DVT prevention. - Anticoagulation Therapy Anticoagulation: ASA 81 mg PO BID x6 weeks Hospital Course Summary Disclaimer: The visit summary below is not to be considered part of the above Progress Note. Hospital Course: 02/13/17 12:55 Admit as inpatient. Her is having to sit by the bed to keep her calm. Will start haldol scheduled and prn. Increase available Ativan. Infection could be playing a role but CRP has continued to trend down. Case d/w Drs. aGrcía and David. Both are consulted. Will restart ceftriaxone and dc Levaquin. Lack of sleep and/or pain control might be the biggest issue. Gould and iv morphine available. Home medications resumed. 02/14/17 -Plan Scheduled Haldol QID has helped with confusion and hallucinations. Continue on Rocephin IV for antimicrobial coverage. Levaquin was discontinued ( as this can cause encephalopathy) Continue with Gould for pain control. Monitor blood pressure- Currently on Norvasc and Lasix. Appreciated consultation by Dr García. monitor CRP which is trending down. Once medically improved consider PT/OT consult and ambulation with nursing staff to avoid weakness from acute illness Will recheck CBC, CRP and BMP today as ordered and planned for 10 am Discuss plan on care with attending, Dr Pierre. 02/15/17 11:34 Pt doing well and has improved from admission. Delirium is mostly resolved although etiology still unclear. Will cont. to trend down haldol as pt is already on multiple meds that can prolong QT and cause sedation so it would be best not to send pt home on haldol. Ortho is following and knee infection is improving. Will encourage ambulation today and hope to target discharge in the next 1-2 days. 02/16/17 10:06 Delirium much improved; no other source for infection. Could be r/t sleep deprivation vs med effect. Increased erythema to left knee, though WBC nml and CRP trending down. Plt still elevated. 02/17/17 Plan Delirium overall appears to be resolved. Exact etiology is unclear. Could be multifactorial including medications versus infection. Haldol discontinued. Left knee does reveal continued redness with warmth. Planning for washout by orthopedic team this afternoon. Continue on Rocephin 2 grams IV daily Patient has been followed by Dr. Hernandez with infectious disease. Continue to monitor blood pressure, slightly elevated overnight, continue on Norvasc, and Lasix. Mild Hypokalemia, Continue with PO replacement Thrombocytosis - possible reactive as well as transaminitis. Will continue to follow Fe Weinstein for bowel motivation Discuss further plan of care with attending, Dr Pierre 02/18/17 Plan Overall Nona is feeling good today. Hgb decreased today to 7.3. Will continue to monitor. knee cultures obtained yesterday during procedure with Dr García. 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 Continue with pain control as needed Recheck CBC and BMP tomorrow to follow blood counts, renal function and electrolytes 02/19/17- Hgb today is down to 6.6. Will transfuse 1 unit of PRBC. Continue on antibiotics, Rocephin 2 mg IV daily awaiting final culture results. Overall stable. .
[2017-02-20] MEDS: CEFTRIAXONE 2 GM in NS 100 ML IV SCH (11:57)
[2017-02-20] MEDS ORDERED: SALINE FLUSH 10ml SYRINGE IV PRN (11:58)
--- NOTE | 2017-02-20 13:44 | Discharge Summary ---
Discharge Information Date of admission: 02/12/17 21:01 Anticipated date of discharge: 02/20/17 Attending Physician: Sumit Pierre MD Primary care physician: Zaid Moraes II, MD Consults: Dr. García-orthopedic surgeon Dr. Hernandez-infectious disease - Discharge Diagnosis (1) Rheumatoid arthritis Status: Acute (2) Hypertension Status: Acute (3) GERD (gastroesophageal reflux disease) Status: Acute (4) Prosthetic joint infection Status: Acute (5) Altered mental status Status: Acute Left knee infection Anemia Delirium- Resolved Normocytic Anemia Thrombocytosis- ? Reactive Transaminitis HTN Insomnia - Procedures Procedures: 02/17/17- Left knee irrigation and debridement, spacer exchange. Dr García - Laboratory Labs: 02/20/17 04:24 02/19/17 03:52 - Microbiology Microbiology 02/17/17 15:27 Knee, Left Intraop Tissue Gram Stain - Final 02/17/17 15:27 Knee, Left Intraop Tissue Surgical Culture - Preliminary No Growth After 2 Days 02/17/17 15:33 Knee, Left Intraop Tissue Gram Stain - Final 02/17/17 15:33 Knee, Left Intraop Tissue Surgical Culture - Preliminary No Growth After 2 Days 02/16/17 16:00 Aspirate, Left Knee Gram Stain - Final 02/16/17 16:00 Aspirate, Left Knee Body Fluid Culture - Preliminary No Growth After 3 Days - Radiology Radiology: 02/12/17- Chest Xray- IMPRESSION: No acute cardiopulmonary abnormality. 02/12/17- Ct Head- IMPRESSION: No acute intracranial abnormality or hemorrhage. Stable head CT. 02/16/17- US liver- IMPRESSION: 1. Unremarkable exam without evidence for cholelithiasis or other signs of acute or chronic cholecystitis. 2. Unremarkable appearance to the liver. - Pathology None History of Present Illness HPI: 66 yo F with recent hospitalization for a left prosthetic knee infection D/C on 02/10/17 presented tot he ED with reports of confusion. Had the joint replacement early this year. Dr García was her surgeon. She developed an infection in her knee and was admitted and taken to OR for a wash out. CX taken that grew strep. pneumo. patient was D/C and set up for daily infusions of ceftriaxone. Came in yesterday afternoon and had her infusion. Her states that within 90 minutes of the infusion she started having some confusion. Patient reports increased anxiety, reports generalized confusion. Today this has gotten much worse. She has not had a fever or any other symptoms. Patient presented for her outpatient infusion today and was sent to the ED for evaluation. Objective Vital signs: Temperature 97.3 F 02/20/17 07:53 Pulse Rate 84 02/20/17 07:53 Respiratory Rate 18 02/20/17 07:53 Blood Pressure 116/67 02/20/17 07:53 Pulse Oximetry 95 02/20/17 07:53 Height/Weight/BMI: Height 1.65 m Weight 78.7 kg Body Mass Index 27.4 - Constitutional Present: no acute distress, well nourished, well developed - Routine HEENT Exam Eye: Present: EOMI ENT: Present: mucous membranes moist, dentition normal - Routine Respiratory Exam Present: CTA bilaterally. Absent: wheezes - Routine Cardiovascular Exam Present: RRR, S1, S2. Absent: murmur - Routine Abdominal Exam Present: soft, normoactive bowel sounds, non distended. Absent: tenderness - Routine Extremities Exam Present: normal capillary refill - Routine Skin Exam Present: intact, dry, warm - Routine Neurological Exam Present: alert, oriented X3, CN II-XII intact, moving all extremities - Routine Lymphatic Exam Lymphatic: Absent: adenopathy - Routine Psychiatric Exam Present: normal affect, cooperative Hospital Course This is a general summary of the patient's hospital course. For more details refer to the complete medical record. Hospital course: 02/13/17 Admit as inpatient. Her is having to sit by the bed to keep her calm. Will start haldol scheduled and prn. Increase available Ativan. Infection could be playing a role but CRP has continued to trend down. Case d/w Drs. García and David. Both are consulted. Will restart ceftriaxone and dc Levaquin. Lack of sleep and/or pain control might be the biggest issue. Shepherd and iv morphine available. Home medications resumed. 02/14/17 Scheduled Haldol QID has helped with confusion and hallucinations. Continue on Rocephin IV for antimicrobial coverage. Levaquin was discontinued ( as this can cause encephalopathy) Continue with Shepherd for pain control. Monitor blood pressure- Currently on Norvasc and Lasix. Appreciated consultation by Dr García. monitor CRP which is trending down. Once medically improved consider PT/OT consult and ambulation with nursing staff to avoid weakness from acute illness Will recheck CBC, CRP and BMP today as ordered and planned for 10 am Discuss plan on care with attending, Dr Pierre. 02/15/17 Pt doing well and has improved from admission. Delirium is mostly resolved although etiology still unclear. Will cont. to trend down haldol as pt is already on multiple meds that can prolong QT and cause sedation so it would be best not to send pt home on haldol. Ortho is following and knee infection is improving. Will encourage ambulation today and hope to target discharge in the next 1-2 days. 02/16/17 Delirium much improved; no other source for infection. Could be r/t sleep deprivation vs med effect. Increased erythema to left knee, though WBC nml and CRP trending down. Plt still elevated. 02/17/17 Delirium overall appears to be resolved. Exact etiology is unclear. Could be multifactorial including medications versus infection. Haldol discontinued. Left knee does reveal continued redness with warmth. Planning for washout by orthopedic team this afternoon. Continue on Rocephin 2 grams IV daily Patient has been followed by Dr. Hernandez with infectious disease. Continue to monitor blood pressure, slightly elevated overnight, continue on Norvasc, and Lasix. Mild Hypokalemia, Continue with PO replacement Thrombocytosis - possible reactive as well as transaminitis. Will continue to follow Senna, Miralax for bowel motivation Discuss further plan of care with attending, Dr Pierre 02/18/17 Overall Nona is feeling good today. Hgb decreased today to 7.3. Will continue to monitor. knee cultures obtained yesterday during procedure with Dr García. Will await for C /S to know fpc antibiotic treatment Planning to get up and move today with PT/OT. Continue with pain control as needed Recheck CBC and BMP tomorrow to follow blood counts, renal function and electrolytes 02/19/17- Hgb today is down to 6.6. Will transfuse 1 unit of PRBC. Continue on antibiotics, Rocephin 2 mg IV daily awaiting final culture results. Overall stable. 02/20/17- Discharge Nona is seen and examined today. She is feeling good and her post-op left knee pain is well controlled on Shepherd. She is doing well ambulating with a walker. Hgb is stable today post- blood transfusion- Hgb 7.5. She is instructed come to [facility] lab for a outpatient CBC on Thursday02/22/17 to follow blood counts. This needs to be faxed to Dr Moraes. She will follow up with [facility]. Outpatient order is written for infusion therapy. Patient will come to [facility] and receive 1 gram of IV Rocephin daily for total of 6 weeks with an end date April 02, 2017. Time spent with patient: greater than 35 minutes Discharge Plan - Discharge Disposition Discharge Date: 02/20/17 Disposition: 01 Discharged Home, Self-Care *Condition: Stable Reason For Visit (Visit label in EMR): encephalopathy - Discharge Medications *Discharge Medications: New Hydrocodone/APAP 7.5/325 [Shepherd 7.5/325] 1 - 2 tab PO Q6H PRN #60 tab PRN Reason: Pain Ceftriaxone [Rocephin] 2 gm IV Q24H vial Continue Hydroxychloroquine [Plaquenil] 200 mg PO BID #0 Cetirizine HCl 5 mg PO HS #0 Folic Acid 1 mg PO DAILY #0 tab Amlodipine Besylate 5 mg PO HS #0 tab cycloSPORINE [Restasis] 1 drop BOTH EYES DAILY #0 drop Estradiol Vag Cream [Estrace Vag Cream] 1 applicatio VG HS Fluticasone Nasal Vidal [Flonase] 2 spray EA NOSTRIL DAILY Quetiapine [SEROquel] 200 mg PO HS Ferrous Sulfate [Feosol] 324 mg PO WB tab PEG 3350 17gm PACKET [Miralax] 17 gm PO DAILY packet Senna + Docusate [Senna Plus Tablet] 1 tab PO BID tab Citalopram Hydrobromide [Citalopram HBr] 40 mg PO HS #0 Multivitamin [Multi-Day Vitamins] 1 tab PO WS #0 tab Omeprazole 20 mg PO NOON Acetaminophen [Tylenol] 500 mg PO Q6H PRN tab PRN Reason: Fever Ascorbic Acid [Vitamin C] 500 mg PO WB tab Furosemide [Lasix] 20 mg PO 0900,1500 #30 tab Potassium Chloride [K-Dur] 20 meq PO WB #30 tab Aspirin Chewable [ASA] 81 mg PO BID #0 tab.chew No Action Docusate Sodium [Colace] 100 mg PO BID PRN cap PRN Reason: Constipation Hydrocodone/APAP 7.5/325 [Shepherd 7.5/325] 1 - 2 tab PO Q6H PRN #30 tab PRN Reason: Pain - Discharge Packet/Instructions *Diet: Resume normal diet as tolerated *Activity: Continue the exercises you were given in the hospital three times a day. Your therapist will provide you with a home therapy program prior to your hospital discharge. As you feel stronger, increase the number of repetitions you do in each session. Please check with us before you swim, use a whirlpool, drive or ride a bicycle *Pain Management/Treatment: Ice packs may be used, and will also help with the pain. You will be given a prescription for pain. *Wound Care: In most cases, a Mepilex dressing will be placed at the time of surgery. This dressing will not need to be covered while showering. Leave dressing in place until your follow-up appointment as long as it remains clean, dry and stuck down well around the edges. Call your Doctor if you encounter a problem with your dressing. Please avoid submerging your incision until it is completely healed, once the Mepilex dressing is removed. This includes bathtubs , swimming pools, and hot tubs. DO NOT USE ALCOHOL, PEROXIDE, OR OINTMENTS of any kind on your incision. Additional Instructions: Please present to [facility] lab on Thursday02/22/17 to have been CBC drawn to check your blood count. This will be sent to primary care provider, Dr. Moraes *Expected Signs/Symptoms: Some swelling around the incision, as well as in your feet and legs is normal. To help with this, elevate your feet on a footstool when sitting in a chair, and do the ankle pumps and circles whenever you are sitting still. Muscle action helps to move collected fluid out of the tissues and improve circulation. Ice packs may be used, and will also help with the pain. Report any persistent swelling, calf tenderness, increase in pain, or pain in the calf with warmth, or redness to your doctor. *Notify Physician if: Report any complications to my office immmediately. This includes excessive bleeding, wound breakdown, redness around the wound, uncontrolled pain, or fever over 101 on 3 different measurements. Eat a balanced diet and get plenty of rest. *During Business Hours Contact: If you have any questions or concerns, please call during regular office hours ([phone]). *After Business Hours Contact: If you have any problems or need to reach a physician after hours or on the weekend please call the hospital's main number [phone] to have your physician paged. *Pending Lab/Results: No Pending Lab - Referrals/Follow Up *Referrals/Follow Up: Estuardo Brewer PA [Physician Fuse Assembler] - 02/25/17 (Please call [phone] to arrange appointment) - Patient Handouts Patient Handouts: Encephalopathy (GEN) - Dismissal Complete Discharge Instructions are:: Complete
== END 2017-02-20 14:10 | disposition home or self-care (01) | DRG 988 ==
LOC: ED 16:51 → MED 20:57 → SUATTDRO 21:01 → MED 21:01
PROVIDERS: ADMIT Internal Medicine; ATTEND Internal Medicine